=== PATIENT | male | born 1940 | race Caucasian/White ===

== ENCOUNTER → 2018-03-11 12:43 | Outpatient (CLI) | payer MEDICARE, OTHER, SELFPAY ==
[2018-03-11 13:48] LABS: Hematocrit 43.6 % (41-53); Hemoglobin 14.7 g/dL (13.5-17.5); Mean Corpuscular HGB Conc 33.8 % (30-36); Mean Corpuscular Hemoglobin 30.9 PG (26-34); Mean Corpuscular Volume 91.5 fL (80-100); Platelet Count 138 X10^3/uL (150-400); Red Blood Cell Count 4.77 X10^6/uL (4.5-5.9); Red Cell Distribution Width 17.2 % (11.6-14.8); White Blood Cell Count 4.9 X10^3/uL (4.5-11.0)
[2018-03-11 14:39] LABS: BUN Creatinine Ratio 20.6 (6-22); Calcium 9.5 mg/dL (8.4-10.2); Estimated Glomerular Filt Rate 39.3 mL/min (>60); Glucose 94 mg/dL (80-110); HEMOLYSIS < 15 (0-50); Potassium 4.4 mmol/L (3.4-5.1); Sodium 141 mmol/L (137-145)
[2018-03-11 16:30] LABS: Protein (Total) Urine Random 409 mg/dL (0-12); Protein Creatinine Ratio Urine 5.52 GRAM/24H
[2018-03-13 12:58] LABS: Free Kappa Light Chain 41.6 mg/L (3.3-19.4); Free Kappa/ Lambda Ratio 1.19 (0.26-1.65); Free Lambda 34.9 mg/L (5.7-26.3)
[2018-03-13 13:49] LABS: Parathyroid Hormone Int 69 pg/mL (14-64)
[2018-03-13 16:22] LABS: Complement C3 117 mg/dL (82-185)
[2018-03-15 17:19] LABS: ANA Screen NEGATIVE (Negative); DNA Antibody Crithidia IFA NEGATIVE (Negative); Rheumatoid Factor <14 IU/mL; Sjogren Antiboday SS-A <1.0 NEG AI (<1.0 NEGATIVE); Sjogren Antiboday SS-B <1.0 NEG AI (<1.0 NEGATIVE); Sm Antibody <1.0 NEG AI (<1.0 NEGATIVE); Sm/RNP Antibody <1.0 NEG AI (<1.0 NEGATIVE)
== END ==
PROVIDERS: Family Provider Family Medicine; PCP Family Medicine; Visit Provider Student in an Organized Health Care Education/Training Program
DX: L93.2 Other local lupus erythematosus (principal); M31.30 Wegener's granulomatosis without renal involvement; M32.10 Systemic lupus erythematosus, organ or system involvement unspecified; N00.9 Acute nephritic syndrome with unspecified morphologic changes; N05.9 Unspecified nephritic syndrome with unspecified morphologic changes; D89.89 Other specified disorders involving the immune mechanism, not elsewhere classified; D70.9 Neutropenia, unspecified; N25.81 Secondary hyperparathyroidism of renal origin; R80.9 Proteinuria, unspecified
CPT/HCPCS: 36415; 80048; 82570; 83520; 83883; 83970; 84156; 85027; 86038; 86160; 86225; 86255; 86430

== ENCOUNTER → 2018-04-25 09:51 | Outpatient (CLI) | payer MEDICARE, OTHER, SELFPAY ==
[2018-04-25 11:17] LABS: BUN Creatinine Ratio 22.5 (6-22); Blood Urea Nitrogen 45 mg/dL (9-20); Calcium 9.4 mg/dL (8.4-10.2); Carbon Dioxide 25 mmol/L (22-32); Chloride 103 mmol/L (98-107); Estimated Glomerular Filt Rate 32.6 mL/min (>60); Glucose 178 mg/dL (80-110); HEMOLYSIS < 15 (0-50); Potassium 4.4 mmol/L (3.4-5.1); Sodium 140 mmol/L (137-145)
[2018-04-25 16:06] LABS: Creatinine Urine Random 106.3 mg/dL
[2018-04-25 16:13] LABS: Protein (Total) Urine Random 537 mg/dL (0-12); Protein Creatinine Ratio Urine 5.05 GRAM/24H
== END ==
PROVIDERS: Family Provider Family Medicine; PCP Family Medicine; Visit Provider Student in an Organized Health Care Education/Training Program
DX: N50.9 Disorder of male genital organs, unspecified (principal); I50.32 Chronic diastolic (congestive) heart failure; R80.9 Proteinuria, unspecified
CPT/HCPCS: 36415; 80048; 82570; 83880; 84156

== ENCOUNTER 2018-06-03 09:47 | Emergency (ER) | payer MEDICARE, OTHER, SELFPAY ==
[2018-06-03 10:05] VITALS: BP 130/78; PULSE 68; RESP 20; TEMP 36.6; O2SAT 94
--- NOTE | 2018-06-03 10:17 | ED_ITS ---
HPI - Abdominal Pain <ROSS Burroughs - Last Filed: 06/03/18 20:54> General Chief Complaint: Abdominal Pain Stated Complaint: STOMACH PAIN FOR 3 DAYS Time Seen by Provider: 06/03/18 09:55 Source: patient Mode of arrival: ambulatory Limitations: no limitations History of Present Illness HPI narrative: 77-year-old male here for complaint of having lower abdominal pain on and off over the past 3 days. He denies any nausea vomiting. He does state that he has had decreased appetite over the same timeframe. He denies any urinary symptoms. Last bowel movement was earlier today and was unremarkable. No fevers no chills. He denies any trauma to the abdomen. He denies any other concerns or complaints at this time. No stressors or relievers of his discomfort. MD complaint: abdominal pain Related Data Home Medications Medication Instructions Recorded Confirmed tamsulosin [Flomax] 0.4 mg PO QDAY #0 12/10/17 06/03/18 warfarin 5 mg tablet 1 dose PO MOWE 04/03/18 06/03/18 lisinopril 40 mg PO DAILY 06/03/18 06/03/18 rosuvastatin [Crestor] 20 mg PO BEDTIME 06/03/18 06/03/18 warfarin 2.5 mg PO SUTUTHFRSA 06/03/18 06/03/18 Previous Rx's Medication Instructions Recorded furosemide 40 mg PO Q DAY #180 tab 12/10/17 ipratropium-albuterol [Combivent 2 puff INH Q8HP PRN #1 inh 01/09/18 Respimat] carvedilol [Coreg] 12.5 mg PO BID #60 tab 03/03/18 hydrocodone 5 mg-acetaminophen 325 1 tab PO BID PRN #60 tab 04/07/18 mg tablet cephalexin 500 mg PO BID #14 tab 06/03/18 Allergies Allergy/AdvReac Type Severity Reaction Status Date / Time diphenhydramine Allergy Intermediate Verified 04/03/18 09:21 [From BENADRYL] povidone-iodine AdvReac Mild Rash Verified 06/03/18 10:56 [From Betadine] soap [From Betadine] AdvReac Mild Rash Verified 06/03/18 10:56 Review of Systems <ROSS Burroughs - Last Filed: 06/03/18 20:54> Constitutional Denies chills, Denies fever(s), Denies lethargy and Denies weakness Eyes Denies change in vision, Denies eye discharge, Denies irritation and Denies loss of vision ENT Ears, Nose, Mouth, and Throat: Denies change in voice, Denies neck pain and Denies sore throat Cardiovascular Denies chest pain, Denies irregular heart rhythm, Denies lightheadedness, Denies palpitations, Denies dyspnea, Denies dyspnea on exertion and Denies orthopnea Respiratory Denies cough, Denies dyspnea, Denies dyspnea on exertion and Denies wheezing Gastrointestinal Gastrointestinal: Reports abdominal pain Genitourinary Denies hematuria, Denies flank pain, Denies urinary incontinence and Denies urinary urgency Musculoskeletal Denies neck pain Integumentary/Breasts Denies pruritus, Denies erythema, Denies rash and Denies wounds Neurologic Denies loss of vision and Denies weakness Endocrine Denies palpitations Hematologic/Lymphatic Denies easy bruising Allergic/Immunologic Denies wheezing Exam <ROSS Burroughs - Last Filed: 06/03/18 20:54> Initial Vital Signs Initial Vital Signs: Vital Signs Temperature 97.8 F 06/03/18 10:05 Pulse Rate 68 06/03/18 10:05 Respiratory Rate 20 06/03/18 10:05 Blood Pressure 130/78 H 06/03/18 10:05 Pulse Oximetry 94 06/03/18 10:05 Const General: cooperative and well developed Nutritional Appearance: well nourished Orientation: alert, awake, oriented x3 and not confused [facility] Mouth: oral mucosae normal, oropharynx normal and moist mucous membranes Eyes Conjunctivae: conjunctivae normal Sclera: sclerae normal Pupils: PERRL EOM: EOM intact bilaterally Resp Effort & Inspection: normal respiratory effort, able to speak in complete sentences, no respiratory distress and no use of accessory muscles Auscultation: clear to auscultation bilaterally, no rales, no rhonchi and no wheezes Cardio Rate: regular rate Rhythm: regular rhythm Heart Sounds: no click, no gallops, no murmurs and no rubs GI Inspection: non-distended Palpation: soft, no hepatosplenomegaly, No guarding, No pulsatile mass and No tender Auscultation: normal bowel sounds General: No CVA tenderness Skin General: no rashes or lesions noted, No jaundice and No petechiae Neuro General: alert, oriented x3, gait normal and no focal motor deficits Speech: speech normal <Bridger Edmondson DO - Last Filed: 06/04/18 19:28> Initial Vital Signs Initial Vital Signs: Vital Signs Temperature 97.8 F 06/03/18 10:05 Pulse Rate 68 06/03/18 10:05 Respiratory Rate 20 06/03/18 10:05 Blood Pressure 130/78 H 06/03/18 10:05 Pulse Oximetry 94 06/03/18 10:05 Course <ROSS Burroughs - Last Filed: 06/03/18 20:54> Orders Ordered: Discontinued Medications Furosemide (Lasix) 40 mg IV NOW ONE Stop: 06/03/18 11:59 Last Admin: 06/03/18 12:06 Dose: 40 mg Sodium Chloride (Normal Saline 0.9%) 1,000 mls @ 150 mls/hr IV CONT SALMA Last Infusion: 06/03/18 12:07 Dose: 150 mls/hr Admin: 06/03/18 10:56 Dose: 150 mls/hr Vital Signs - 8 hr 06/03/18 13:52 Pulse Rate 64 Respiratory Rate 14 Blood Pressure [Left Arm] 156/65 H Pulse Oximetry 92 <Bridger Edmondson DO - Last Filed: 06/04/18 19:28> Orders Ordered: Discontinued Medications Furosemide (Lasix) 40 mg IV NOW ONE Stop: 06/03/18 11:59 Last Admin: 06/03/18 12:06 Dose: 40 mg Sodium Chloride (Normal Saline 0.9%) 1,000 mls @ 150 mls/hr IV CONT SALMA Last Infusion: 06/03/18 12:07 Dose: 150 mls/hr Admin: 06/03/18 10:56 Dose: 150 mls/hr Vital Signs - 8 hr 06/03/18 13:52 Pulse Rate 64 Respiratory Rate 14 Blood Pressure [Left Arm] 156/65 H Pulse Oximetry 92 MDM - Abdominal Pain <ROSS Burroughs - Last Filed: 06/03/18 20:54> Lab Data Result diagrams: 06/03/18 10:35 06/03/18 10:35 Lab Results 06/03/18 06/03/18 06/03/18 Range/Units 10:35 10:35 10:35 WBC 7.7 (4.5-11.0) X10^3/uL RBC 5.19 (4.5-5.9) X10^6/uL Hgb 16.0 (13.5-17.5) g/dL Hct 48.3 (41-53) % MCV 93.1 (80-100) fL MCH 30.9 (26-34) PG MCHC 33.2 (30-36) % RDW 14.5 (11.6-14.8) % Plt Count 177 (150-400) X10^3/uL Neut % (Auto) 75.7 H (50-75) % Lymph % (Auto) 10.4 L (25-40) % Isabella % (Auto) 12.4 (3-14) % Eos % (Auto) 0.9 L (2-4) % Baso % (Auto) 0.6 (0-2) % Neut # (Auto) 5800 (1958-2280) /uL PT 42.0 H (10.1-12.7) SECONDS INR 3.8 H (0.9-1.3) Sodium 140 (137-145) mmol/L Potassium 4.4 (3.4-5.1) mmol/L Chloride 99 (98-107) mmol/L Carbon Dioxide 32 (22-32) mmol/L BUN 72 H (9-20) mg/dL Creatinine 3.10 H (0.66-1.25) mg/dL Estimated GFR 19.6 L (>60) mL/min BUN/Creatinine Ratio 23.2 H (6-22) Glucose 117 H (80-110) mg/dL Calcium 10.4 H (8.4-10.2) mg/dL Total Bilirubin 1.0 (0.2-1.3) mg/dL AST 27 (17-59) IU/L ALT 21 (21-72) IU/L Alkaline Phosphatase 81 (38-126) U/L Total Protein 8.4 H (6.3-8.2) g/dL Albumin 4.3 (3.5-5.0) g/dL Globulin 4.1 (1.7-4.1) g/dL Albumin/Globulin Ratio 1.0 (1.0-2.8) Lipase 97 (23-300) U/L Urine RBC (0-5/HPF) Urine WBC (0-5/HPF) Ur Squamous Epith Cells Amorphous Sediment Urine Bacteria (None) Urine Mucus (Negative) Urine Yeast (None) Ur Culture Indicated? Micro UA Comment 06/03/18 Range/Units 12:30 WBC (4.5-11.0) X10^3/uL RBC (4.5-5.9) X10^6/uL Hgb (13.5-17.5) g/dL Hct (41-53) % MCV (80-100) fL MCH (26-34) PG MCHC (30-36) % RDW (11.6-14.8) % Plt Count (150-400) X10^3/uL Neut % (Auto) (50-75) % Lymph % (Auto) (25-40) % Isabella % (Auto) (3-14) % Eos % (Auto) (2-4) % Baso % (Auto) (0-2) % Neut # (Auto) (5497-7729) /uL PT (10.1-12.7) SECONDS INR (0.9-1.3) Sodium (137-145) mmol/L Potassium (3.4-5.1) mmol/L Chloride (98-107) mmol/L Carbon Dioxide (22-32) mmol/L BUN (9-20) mg/dL Creatinine (0.66-1.25) mg/dL Estimated GFR (>60) mL/min BUN/Creatinine Ratio (6-22) Glucose (80-110) mg/dL Calcium (8.4-10.2) mg/dL Total Bilirubin (0.2-1.3) mg/dL AST (17-59) IU/L ALT (21-72) IU/L Alkaline Phosphatase (38-126) U/L Total Protein (6.3-8.2) g/dL Albumin (3.5-5.0) g/dL Globulin (1.7-4.1) g/dL Albumin/Globulin Ratio (1.0-2.8) Lipase (23-300) U/L Urine RBC 1-5/hpf (0-5/HPF) Urine WBC 30-100/hpf H (0-5/HPF) Ur Squamous Epith Cells 0-1 /hpf Amorphous Sediment 1+ Urine Bacteria Few (2-10) H (None) Urine Mucus 1+ H (Negative) Urine Yeast 5-10/hpf H (None) Ur Culture Indicated? Specimen cultured Micro UA Comment Not Reportable Point of care testing: Urine Dip Bedside Urine Glucose Negative Bedside Urine Bilirubin - Negative Bedside Urine Ketone - Negative Urine Specific [place] 1.020 Bedside Urine Occult Blood ++ Bedside Urine pH 6.0 Bedside Urine Protein ++ 100 Bedside Urine Urobilinogen - Negative Bedside Urine Nitrite - Negative Bedside Urine Leukocytes +/- [address] scan - abdomen: Radiologist's impression: PROCEDURE: CT KIDNEY URETER BLADDER (KUB) INDICATIONS: Left lower quadrant pain TECHNIQUE: Noncontrast 5 mm thick sections acquired from the diaphragms to the symphysis. 5 mm thick coronal and sagittal reformats were then performed. For radiation dose reduction, the following was used: automated exposure control, adjustment of mA and/or kV according to patient size. COMPARISON: [facility], , RENAL COMPLETE, 08/22/2017, 9:05. FINDINGS: Image quality: Excellent. Lung bases: Dependent atelectasis/scarring in posterior aspect of bilateral lung bases are seen. Heart size is enlarged. Atherosclerotic calcifications throughout coronary arteries are noted. Urinary system: Moderately atrophic appearing left kidney is seen, progressed since 2017 study. No obstructing renal stone or hydronephrosis is seen. Nonspecific bilateral perinephric fat stranding is noted. Vascular calcifications versus nonobstructing calculi are seen scattered in bilateral renal parenchyma and measures up to 3 mm in size in midpole of left kidney. No perinephric fluid collection. Multiple hypodense areas are seen in left renal cortex, and are consistent with simple renal cortical cysts. There is diffuse urinary bladder wall thickening, no gross discrete bladder wall mass is noted. Enlarged prostate gland with mass effect on floor of urinary bladder is also seen. Coarse calcifications in the prostate gland are also seen. Other solid organs: Liver is normal in size. Gallbladder contains at least numerous calcified stones in its dependent portion. No CT evidence of acute cholecystitis. No biliary ductal dilatation. Pancreas is normal in contours. Spleen is normal in size. No adrenal nodules. Peritoneum and bowel: Unenhanced bowel loops demonstrate normal wall thickness and caliber. No free fluid or air. There is evidence of prior appendectomy.: Diverticulosis is seen, no significant evidence of acute diverticulitis. Nodes and vessels: No retroperitoneal or mesenteric adenopathy by size criteria. Extensive dense atherosclerotic calcifications throughout the abdominal aorta and its major branches are again seen. Numerous surgical clips are seen adjacent to abdominal aorta. femoral-femoral bypass graft is seen. Abdominal wall: No ventral hernias. Pelvis: No free pelvic fluid. No inguinal hernias or adenopathy. Bones: No suspicious bony lesions. No vertebral body compression fractures. IMPRESSION: 1. Moderate atrophy of left kidney, significantly progressed since 2017 study. No obstructing renal stone or hydronephrosis. Tiny nonobstructing stones versus vascular calcifications are noted in bilateral kidneys. Suggestion of multiple left renal cysts. Nonspecific bilateral perinephric fat stranding, infectious process cannot be excluded. 2. Diffuse urinary bladder wall thickening, no discrete bladder wall mass is seen. Mildly enlarged prostate gland with mass effect on floor of urinary bladder. 3. Cholelithiasis, no CT evidence of acute cholecystitis. 4. No bowel obstruction. No peritoneal free fluid or free air. Extensive colon diverticulosis with no CT evidence of acute diverticulitis. Dictated by: Kevon Guaman M.D. on 06/03/2018 at 11:17 Approved by: Kevon Guaman M.D. on 06/03/2018 at 11:29 MDM Narrative Medical decision making narrative: CBC was obtained was unremarkable. INR today was elevated at 3.8. Chem panel shows decreased GFR of 19.6 and elevated creatinine of 3.1. This is higher than when he has normally been. Lipase was obtained was unremarkable. CT of the abdomen and shows thickening of the wall of the bladder however was otherwise unremarkable. Urinalysis indicates urinary tract infection. Discussed case with Dr. Guerra to discussed care with patient who is on-call for primary care provider Dr. Vickers who will follow up with patient in the next couple of days. He is placed on Keflex to treat for urinary tract infection. Further evaluation is needed for his decrease in GFR and also for repeat INR here in the next couple days after antibiotics. For any worsening symptoms return to the emergency room. <Bridger Edmondson, - Last Filed: 06/04/18 19:28> Lab Data Lab Results 06/03/18 06/03/18 06/03/18 Range/Units 10:35 10:35 10:35 WBC 7.7 (4.5-11.0) X10^3/uL RBC 5.19 (4.5-5.9) X10^6/uL Hgb 16.0 (13.5-17.5) g/dL Hct 48.3 (41-53) % MCV 93.1 (80-100) fL MCH 30.9 (26-34) PG MCHC 33.2 (30-36) % RDW 14.5 (11.6-14.8) % Plt Count 177 (150-400) X10^3/uL Neut % (Auto) 75.7 H (50-75) % Lymph % (Auto) 10.4 L (25-40) % Isabella % (Auto) 12.4 (3-14) % Eos % (Auto) 0.9 L (2-4) % Baso % (Auto) 0.6 (0-2) % Neut # (Auto) 5800 (2164-9845) /uL PT 42.0 H (10.1-12.7) SECONDS INR 3.8 H (0.9-1.3) Sodium 140 (137-145) mmol/L Potassium 4.4 (3.4-5.1) mmol/L Chloride 99 (98-107) mmol/L Carbon Dioxide 32 (22-32) mmol/L BUN 72 H (9-20) mg/dL Creatinine 3.10 H (0.66-1.25) mg/dL Estimated GFR 19.6 L (>60) mL/min BUN/Creatinine Ratio 23.2 H (6-22) Glucose 117 H (80-110) mg/dL Calcium 10.4 H (8.4-10.2) mg/dL Total Bilirubin 1.0 (0.2-1.3) mg/dL AST 27 (17-59) IU/L ALT 21 (21-72) IU/L Alkaline Phosphatase 81 (38-126) U/L Total Protein 8.4 H (6.3-8.2) g/dL Albumin 4.3 (3.5-5.0) g/dL Globulin 4.1 (1.7-4.1) g/dL Albumin/Globulin Ratio 1.0 (1.0-2.8) Lipase 97 (23-300) U/L Urine RBC (0-5/HPF) Urine WBC (0-5/HPF) Ur Squamous Epith Cells Amorphous Sediment Urine Bacteria (None) Urine Mucus (Negative) Urine Yeast (None) Ur Culture Indicated? Micro UA Comment 06/03/18 Range/Units 12:30 WBC (4.5-11.0) X10^3/uL RBC (4.5-5.9) X10^6/uL Hgb (13.5-17.5) g/dL Hct (41-53) % MCV (80-100) fL MCH (26-34) PG MCHC (30-36) % RDW (11.6-14.8) % Plt Count (150-400) X10^3/uL Neut % (Auto) (50-75) % Lymph % (Auto) (25-40) % Isabella % (Auto) (3-14) % Eos % (Auto) (2-4) % Baso % (Auto) (0-2) % Neut # (Auto) (6567-4270) /uL PT (10.1-12.7) SECONDS INR (0.9-1.3) Sodium (137-145) mmol/L Potassium (3.4-5.1) mmol/L Chloride (98-107) mmol/L Carbon Dioxide (22-32) mmol/L BUN (9-20) mg/dL Creatinine (0.66-1.25) mg/dL Estimated GFR (>60) mL/min BUN/Creatinine Ratio (6-22) Glucose (80-110) mg/dL Calcium (8.4-10.2) mg/dL Total Bilirubin (0.2-1.3) mg/dL AST (17-59) IU/L ALT (21-72) IU/L Alkaline Phosphatase (38-126) U/L Total Protein (6.3-8.2) g/dL Albumin (3.5-5.0) g/dL Globulin (1.7-4.1) g/dL Albumin/Globulin Ratio (1.0-2.8) Lipase (23-300) U/L Urine RBC 1-5/hpf (0-5/HPF) Urine WBC 30-100/hpf H (0-5/HPF) Ur Squamous Epith Cells 0-1 /hpf Amorphous Sediment 1+ Urine Bacteria Few (2-10) H (None) Urine Mucus 1+ H (Negative) Urine Yeast 5-10/hpf H (None) Ur Culture Indicated? Specimen cultured Micro UA Comment Not Reportable Point of care testing: Urine Dip Bedside Urine Glucose Negative Bedside Urine Bilirubin - Negative Bedside Urine Ketone - Negative Urine Specific [place] 1.020 Bedside Urine Occult Blood ++ Bedside Urine pH 6.0 Bedside Urine Protein ++ 100 Bedside Urine Urobilinogen - Negative Bedside Urine Nitrite - Negative Bedside Urine Leukocytes +/- 15 Esterase Discharge Plan Departure Patient Disposition: Home, Self-Care Clinical Impression: Urinary tract infection Discharge Date/Time: 06/03/18 15:12 Interventions: ED Discharge Assessment Last Done: 06/03/18 15:10 Instructions: Urinary Tract Infection Activity Restrictions/Additional Instructions: Laboratory results and imaging today indicate that you have urinary tract infection. You have been placed on an antibiotic called Keflex use as directed. Your kidney function today was less than normal and also your INR was elevated at 3.8. Follow up with primary care office in the next couple of days. Call the office at number provided to schedule follow-up appointment. For any worsening symptoms return to the emergency room. Prescriptions: New cephalexin 250 mg tablet 500 mg PO BID Qty: 14 RF: 0 No Action furosemide 40 MG tablet 40 mg PO Q DAY Qty: 180 RF: 3 tamsulosin [Flomax] 0.4 MG capsule,extended release 24hr 0.4 mg PO QDAY Qty: 0 RF: 0 ipratropium-albuterol [Combivent Respimat] 4 GM mist 2 puff INH Q8HP PRNQty: 1 RF: 0 carvedilol [Coreg] 12.5 mg tablet 12.5 mg PO BID Qty: 60 RF: 0 hydrocodone-acetaminophen 5-325 mg tablet 1 tab PO BID PRN (Reason: pain) Qty: 60 RF: 0 warfarin 5 mg tablet 1 dose PO MOWE RF: 0 lisinopril 40 mg tablet 40 mg PO DAILY RF: 0 warfarin 5 mg Tablet 2.5 mg PO SUTUTHFRSA RF: 0 rosuvastatin [Crestor] 40 mg tablet 20 mg PO BEDTIME RF: 0 Referrals: Dereck Vickers MD [Primary Care Provider] - <Bridger Edmondson DO - Last Filed: 06/04/18 19:28> Cosign ED Attending Yajaira Attestation: I was available for consultation during this patient's emergency department encounter
[2018-06-03 10:50] LABS: Add Manual Diff / Slide Review NO; Basophils Percent Auto 0.6 % (0-2); Eosinophils Percent Auto 0.9 % (2-4); Hematocrit 48.3 % (41-53); Lymphocytes Percent Auto 10.4 % (25-40); Mean Corpuscular HGB Conc 33.2 % (30-36); Mean Corpuscular Hemoglobin 30.9 PG (26-34); Mean Corpuscular Volume 93.1 fL (80-100); Monocytes Percent Auto 12.4 % (3-14); Neutrophils Absolute Auto 5800 /uL (3000-5900); Neutrophils Percent Auto 75.7 % (50-75); Platelet Count 177 X10^3/uL (150-400); Red Blood Cell Count 5.19 X10^6/uL (4.5-5.9); Red Cell Distribution Width 14.5 % (11.6-14.8); White Blood Cell Count 7.7 X10^3/uL (4.5-11.0)
[2018-06-03 10:56] LABS: INR 3.8 (0.9-1.3)
[2018-06-03] MEDS: SODIUM CHLORIDE 0.9% 1,000 ML 150 ML IV (10:56)
--- NOTE | 2018-06-03 10:57 | DI.CT.S_ITS ---
PROCEDURE: CT KIDNEY URETER BLADDER (KUB) INDICATIONS: Left lower quadrant pain TECHNIQUE: Noncontrast 5 mm thick sections acquired from the diaphragms to the symphysis. 5 mm thick coronal and sagittal reformats were then performed. For radiation dose reduction, the following was used: automated exposure control, adjustment of mA and/or kV according to patient size. COMPARISON: [facility], , RENAL COMPLETE, 08/22/2017, 9:05. FINDINGS: Image quality: Excellent. Lung bases: Dependent atelectasis/scarring in posterior aspect of bilateral lung bases are seen. Heart size is enlarged. Atherosclerotic calcifications throughout coronary arteries are noted. Urinary system: Moderately atrophic appearing left kidney is seen, progressed since 2017 study. No obstructing renal stone or hydronephrosis is seen. Nonspecific bilateral perinephric fat stranding is noted. Vascular calcifications versus nonobstructing calculi are seen scattered in bilateral renal parenchyma and measures up to 3 mm in size in midpole of left kidney. No perinephric fluid collection. Multiple hypodense areas are seen in left renal cortex, and are consistent with simple renal cortical cysts. There is diffuse urinary bladder wall thickening, no gross discrete bladder wall mass is noted. Enlarged prostate gland with mass effect on floor of urinary bladder is also seen. Coarse calcifications in the prostate gland are also seen. Other solid organs: Liver is normal in size. Gallbladder contains at least numerous calcified stones in its dependent portion. No CT evidence of acute cholecystitis. No biliary ductal dilatation. Pancreas is normal in contours. Spleen is normal in size. No adrenal nodules. Peritoneum and bowel: Unenhanced bowel loops demonstrate normal wall thickness and caliber. No free fluid or air. There is evidence of prior appendectomy.: Diverticulosis is seen, no significant evidence of acute diverticulitis. Nodes and vessels: No retroperitoneal or mesenteric adenopathy by size criteria. Extensive dense atherosclerotic calcifications throughout the abdominal aorta and its major branches are again seen. Numerous surgical clips are seen adjacent to abdominal aorta. femoral-femoral bypass graft is seen. Abdominal wall: No ventral hernias. Pelvis: No free pelvic fluid. No inguinal hernias or adenopathy. Bones: No suspicious bony lesions. No vertebral body compression fractures. IMPRESSION: 1. Moderate atrophy of left kidney, significantly progressed since 2017 study. No obstructing renal stone or hydronephrosis. Tiny nonobstructing stones versus vascular calcifications are noted in bilateral kidneys. Suggestion of multiple left renal cysts. Nonspecific bilateral perinephric fat stranding, infectious process cannot be excluded. 2. Diffuse urinary bladder wall thickening, no discrete bladder wall mass is seen. Mildly enlarged prostate gland with mass effect on floor of urinary bladder. 3. Cholelithiasis, no CT evidence of acute cholecystitis. 4. No bowel obstruction. No peritoneal free fluid or free air. Extensive colon diverticulosis with no CT evidence of acute diverticulitis. Dictated by: Kevon Guaman M.D. on 06/03/2018 at 11:17 Approved by: Kevon Guaman M.D. on 06/03/2018 at 11:29
--- NOTE | 2018-06-03 10:59 | PC.NURSE ---
states not able to void yet, voided prior to admit to ed
[2018-06-03 11:01] LABS: Alanine Aminotransferase 21 IU/L (21-72); Albumin 4.3 g/dL (3.5-5.0); Alkaline Phosphatase 81 U/L (38-126); Aspartate Aminotransferase 27 IU/L (17-59); BUN Creatinine Ratio 23.2 (6-22); Blood Urea Nitrogen 72 mg/dL (9-20); Calcium 10.4 mg/dL (8.4-10.2); Carbon Dioxide 32 mmol/L (22-32); Chloride 99 mmol/L (98-107); Estimated Glomerular Filt Rate 19.6 mL/min (>60); Globulin 4.1 g/dL (1.7-4.1); Glucose 117 mg/dL (80-110); HEMOLYSIS < 15 (0-50); Lipase 97 U/L (23-300); Potassium 4.4 mmol/L (3.4-5.1); Sodium 140 mmol/L (137-145); Total Protein 8.4 g/dL (6.3-8.2)
[2018-06-03] MEDS: FUROSEMIDE 40 MG/4 ML VIAL IV (12:06)
[2018-06-03 12:17] VITALS: BP 147/83; PULSE 66; RESP 18; O2SAT 94
[2018-06-03 12:54] LABS: RBC Urine 1-5/HPF (0-5/HPF)
[2018-06-03 12:55] LABS: Amorphous Sediment Urine 1+; Bacteria Urine Few (2-10); Culture Indicated Urine Specimen Cultured; Mucus Urine 1+ (Negative); Squamous Epithelial Cell Urine 0-1 /HPF; WBC Urine 30-100/HPF (0-5/HPF)
[2018-06-03 13:52] VITALS: BP 156/65; PULSE 64; RESP 14; O2SAT 92
== END 2018-06-03 15:12 | disposition home or self-care (01) ==
PROVIDERS: Emergency Provider Nurse Practitioner Family; Family Provider Family Medicine; PCP Family Medicine
DX: N39.0 Urinary tract infection, site not specified (principal)
CPT/HCPCS: 36591; 74176; 80053; 81003; 81015; 83690; 85025; 85610; 87077; 87086; 96361; 96374; 99283; 99284; J1940

== ENCOUNTER → 2018-06-06 14:41 | Outpatient (CLI) | payer MEDICARE, OTHER, SELFPAY ==
[2018-06-06 15:09] LABS: Prothrombin Time 62.5 SECONDS (10.1-12.7)
[2018-06-06 15:21] LABS: INR 5.5 (0.9-1.3)
[2018-06-06 15:23] LABS: BUN Creatinine Ratio 23.2 (6-22); Blood Urea Nitrogen 79 mg/dL (9-20); Calcium 9.9 mg/dL (8.4-10.2); Carbon Dioxide 30 mmol/L (22-32); Chloride 97 mmol/L (98-107); Estimated Glomerular Filt Rate 17.7 mL/min (>60); Glucose 102 mg/dL (80-110); HEMOLYSIS 17 (0-50); Potassium 4.6 mmol/L (3.4-5.1); Sodium 139 mmol/L (137-145)
== END ==
PROVIDERS: Family Provider Family Medicine; PCP Family Medicine; Visit Provider Internal Medicine
DX: N17.9 Acute kidney failure, unspecified (principal)
CPT/HCPCS: 36415; 80048; 85610

== ENCOUNTER → 2018-06-10 10:37 | Outpatient (CLI) | payer MEDICARE, OTHER, SELFPAY ==
--- NOTE | 2018-06-10 10:39 | DI.US.S_ITS ---
PROCEDURE: US RENAL COMPLETE INDICATIONS: post void residual TECHNIQUE: Real-time scanning was performed of the kidneys and bladder, with image documentation. COMPARISON: [facility], CT, CT KIDNEY URETER BLADDER (KUB), 06/03/2018, 11:03. FINDINGS: Kidneys: Kidneys are within normal limits in length. Right kidney measures 13.4 cm long; left kidney measures 13 cm long. Right renal cortical thickness is 1.4 cm; left renal cortical thickness is 1. 0 cm. Renal cortical echotexture is normal. Mild pyelectasis of the left renal collecting system. There are 3 small nonobstructing right renal calcifications largest measuring 8 mm and a single nonobstructing left renal calcification measuring 5 mm. Left renal cysts present measuring 1.4 cm. Bladder: Pre-void bladder volume is 325 mL. Post-void residual is 129 mL. Pre-void images demonstrate no intraluminal masses or stones. On pre-void images, right ureteral jets are noted with color Doppler interrogation. (Of note, ureteral jets may not be detectable in up to 25% of cases due to insufficient differences in specific gravity between ureteral and bladder urine). Miscellaneous: No free pelvic fluid. IMPRESSION: 1. Small bilateral non-obstructing calcifications. 2. Left renal cysts present largest measuring 1.4 cm. 3. Roughly 120 cc urinary bladder postvoid residual. 4. Left renal cortical thinning redemonstrated. Dictated by: Buzz Gonzáles [facility] Interpreted: Verito Herrera MD on 06/10/2018 at 12:02 Approved by: Verito Herrera MD, PhD on 06/10/2018 at 13:49
== END ==
PROVIDERS: Family Provider Student in an Organized Health Care Education/Training Program; PCP Family Medicine; Visit Provider Internal Medicine
DX: N17.9 Acute kidney failure, unspecified (principal); N28.89 Other specified disorders of kidney and ureter; N28.1 Cyst of kidney, acquired
CPT/HCPCS: 76770

== ENCOUNTER → 2018-06-11 15:09 | Outpatient (CLI) | payer MEDICARE, OTHER, SELFPAY ==
[2018-06-11 16:01] LABS: BUN Creatinine Ratio 21.3 (6-22); Blood Urea Nitrogen 66 mg/dL (9-20); Calcium 9.3 mg/dL (8.4-10.2); Carbon Dioxide 24 mmol/L (22-32); Chloride 101 mmol/L (98-107); Estimated Glomerular Filt Rate 19.6 mL/min (>60); Glucose 95 mg/dL (80-110); HEMOLYSIS 16 (0-50); Potassium 4.5 mmol/L (3.4-5.1); Sodium 139 mmol/L (137-145)
== END ==
PROVIDERS: Family Provider Student in an Organized Health Care Education/Training Program; PCP Family Medicine; Visit Provider Internal Medicine
DX: I50.20 Unspecified systolic (congestive) heart failure (principal); N17.9 Acute kidney failure, unspecified
CPT/HCPCS: 36415; 80048

== ENCOUNTER → 2018-06-16 14:08 | Outpatient (CLI) | payer MEDICARE, OTHER, SELFPAY ==
[2018-06-16 15:51] LABS: INR 2.4 (0.9-1.3); Prothrombin Time 26.6 SECONDS (10.1-12.7)
[2018-06-16 16:04] LABS: BUN Creatinine Ratio 18.1 (6-22); Blood Urea Nitrogen 56 mg/dL (9-20); Calcium 9.8 mg/dL (8.4-10.2); Carbon Dioxide 29 mmol/L (22-32); Chloride 102 mmol/L (98-107); Estimated Glomerular Filt Rate 19.6 mL/min (>60); Glucose 89 mg/dL (80-110); HEMOLYSIS < 15 (0-50); Potassium 4.5 mmol/L (3.4-5.1); Sodium 142 mmol/L (137-145)
== END ==
PROVIDERS: Family Provider Student in an Organized Health Care Education/Training Program; PCP Family Medicine; Visit Provider Internal Medicine
DX: N18.3 Chronic kidney disease, stage 3 (moderate) (principal); Z79.01 Long term (current) use of anticoagulants
CPT/HCPCS: 36415; 80048; 85610

== ENCOUNTER → 2018-06-26 12:26 | Outpatient (CLI) | payer MEDICARE, OTHER, SELFPAY ==
[2018-06-26 13:10] LABS: Blood Urea Nitrogen 45 mg/dL (9-20); Calcium 9.6 mg/dL (8.4-10.2); Carbon Dioxide 34 mmol/L (22-32); Chloride 101 mmol/L (98-107); Estimated Glomerular Filt Rate 36.7 mL/min (>60); Glucose 94 mg/dL (80-110); HEMOLYSIS < 15 (0-50); Potassium 3.5 mmol/L (3.4-5.1); Sodium 145 mmol/L (137-145)
== END ==
PROVIDERS: Family Provider Student in an Organized Health Care Education/Training Program; PCP Family Medicine; Visit Provider Student in an Organized Health Care Education/Training Program
DX: N05.9 Unspecified nephritic syndrome with unspecified morphologic changes (principal); I50.32 Chronic diastolic (congestive) heart failure
CPT/HCPCS: 36415; 80048; 83880

== ENCOUNTER → 2018-07-31 12:32 | Outpatient (CLI) | payer MEDICARE, OTHER, SELFPAY ==
[2018-07-31 13:09] LABS: Hemoglobin 14.5 g/dL (13.5-17.5)
[2018-07-31 13:35] LABS: BUN Creatinine Ratio 16.4 (6-22); Blood Urea Nitrogen 23 mg/dL (9-20); Calcium 9.3 mg/dL (8.4-10.2); Carbon Dioxide 32 mmol/L (22-32); Chloride 101 mmol/L (98-107); Glucose 137 mg/dL (80-110); HEMOLYSIS < 15 (0-50); Potassium 3.6 mmol/L (3.4-5.1); Sodium 144 mmol/L (137-145)
[2018-08-02 14:06] LABS: Parathyroid Hormone Int 45 pg/mL (14-64)
== END ==
PROVIDERS: Family Provider Student in an Organized Health Care Education/Training Program; PCP Family Medicine; Visit Provider Student in an Organized Health Care Education/Training Program
DX: N05.9 Unspecified nephritic syndrome with unspecified morphologic changes (principal); I50.32 Chronic diastolic (congestive) heart failure; D64.9 Anemia, unspecified; N25.81 Secondary hyperparathyroidism of renal origin
CPT/HCPCS: 36415; 80048; 83880; 83970; 85014; 85018

== ENCOUNTER → 2018-09-09 12:45 | Outpatient (CLI) | payer MEDICARE, OTHER, SELFPAY ==
[2018-09-09 15:02] LABS: BUN Creatinine Ratio 18.2 (6-22); Blood Urea Nitrogen 31 mg/dL (9-20); Calcium 9.3 mg/dL (8.4-10.2); Carbon Dioxide 27 mmol/L (22-32); Chloride 100 mmol/L (98-107); Estimated Glomerular Filt Rate 39.2 mL/min (>60); Glucose 101 mg/dL (80-110); HEMOLYSIS < 15 (0-50); Potassium 3.9 mmol/L (3.4-5.1); Sodium 141 mmol/L (137-145)
[2018-09-09 16:08] LABS: Creatinine Urine Random 59.6 mg/dL; Protein (Total) Urine Random 156 mg/dL (0-12); Protein Creatinine Ratio Urine 2.61 GRAM/24H
== END ==
PROVIDERS: PCP Family Medicine; Visit Provider Student in an Organized Health Care Education/Training Program
DX: N05.9 Unspecified nephritic syndrome with unspecified morphologic changes (principal); R80.9 Proteinuria, unspecified
CPT/HCPCS: 36415; 80048; 82570; 84156

== ENCOUNTER → 2018-12-27 12:26 | Outpatient (CLI) | payer MEDICARE, OTHER, SELFPAY ==
[2018-12-27 13:06] LABS: Hematocrit 45.9 % (41-53)
[2018-12-27 13:34] LABS: BUN Creatinine Ratio 21.6 (6-22); Blood Urea Nitrogen 41 mg/dL (9-20); Calcium 9.5 mg/dL (8.4-10.2); Carbon Dioxide 28 mmol/L (22-32); Chloride 99 mmol/L (98-107); Estimated Glomerular Filt Rate 34.5 mL/min (>60); Glucose 171 mg/dL (80-110); HEMOLYSIS < 15 (0-50); Potassium 4.3 mmol/L (3.4-5.1); Sodium 138 mmol/L (137-145)
[2018-12-27 14:42] LABS: Protein (Total) Urine Random 173 mg/dL (0-12); Protein Creatinine Ratio Urine 2.43 GRAM/24H
== END ==
PROVIDERS: Family Provider Student in an Organized Health Care Education/Training Program; PCP Family Medicine; Visit Provider Student in an Organized Health Care Education/Training Program
DX: N05.9 Unspecified nephritic syndrome with unspecified morphologic changes (principal); R80.9 Proteinuria, unspecified; D64.9 Anemia, unspecified
CPT/HCPCS: 36415; 80048; 82570; 84156; 85014; 85018

== ENCOUNTER → 2019-02-05 13:07 | Outpatient (CLI) | payer MEDICARE, OTHER, SELFPAY ==
[2019-02-05 14:24] LABS: BUN Creatinine Ratio 22.2 (6-22); Blood Urea Nitrogen 40 mg/dL (9-20); Calcium 9.1 mg/dL (8.4-10.2); Carbon Dioxide 24 mmol/L (22-32); Chloride 104 mmol/L (98-107); Estimated Glomerular Filt Rate 36.7 mL/min (>60); Glucose 114 mg/dL (80-110); HEMOLYSIS < 15 (0-50); Potassium 4.1 mmol/L (3.4-5.1); Sodium 140 mmol/L (137-145)
[2019-02-05 16:14] LABS: Creatinine Urine Random 73.2 mg/dL; Protein (Total) Urine Random 246 mg/dL (0-12); Protein Creatinine Ratio Urine 3.36 GRAM/24H
== END ==
PROVIDERS: PCP Family Medicine; Visit Provider Student in an Organized Health Care Education/Training Program
DX: R80.9 Proteinuria, unspecified (principal); N05.9 Unspecified nephritic syndrome with unspecified morphologic changes
CPT/HCPCS: 36415; 80048; 82570; 84156

== ENCOUNTER → 2019-03-19 13:22 | Outpatient (CLI) | payer MEDICARE, OTHER, SELFPAY ==
[2019-03-19 14:03] LABS: Hematocrit 46.2 % (41-53); Hemoglobin 15.5 g/dL (13.5-17.5); Mean Corpuscular HGB Conc 33.4 % (30-36); Mean Corpuscular Volume 92.8 fL (80-100); Platelet Count 143 X10^3/uL (150-400); Red Blood Cell Count 4.98 X10^6/uL (4.5-5.9); Red Cell Distribution Width 16.1 % (11.6-14.8); White Blood Cell Count 6.9 X10^3/uL (4.5-11.0)
[2019-03-19 14:27] LABS: B Type Natriuretic Peptide 1420 (<100)
[2019-03-19 15:25] LABS: HEMOLYSIS < 15 (0-50); Iron 95 ug/dL (49-181)
[2019-03-19 15:28] LABS: Creatinine Urine Random 28.4 mg/dL
[2019-03-19 15:30] LABS: Blood Urea Nitrogen 42 mg/dL (9-20); Calcium 9.4 mg/dL (8.4-10.2); Carbon Dioxide 28 mmol/L (22-32); Chloride 101 mmol/L (98-107); Estimated Glomerular Filt Rate 30.7 mL/min (>60); Glucose 97 mg/dL (80-110); HEMOLYSIS < 15 (0-50); Phosphorous 3.9 mg/dL (2.3-3.7); Sodium 139 mmol/L (137-145)
[2019-03-19 15:34] LABS: Percent Iron Saturation 26 % (20-50); Total Iron Binding Capacity 367 ug/dL (261-462); Transferrin 266 mg/dL (206-381)
[2019-03-21 16:45] LABS: Parathyroid Hormone Int 81 pg/mL (14-64)
== END ==
PROVIDERS: PCP Family Medicine; Visit Provider Student in an Organized Health Care Education/Training Program
DX: N18.3 Chronic kidney disease, stage 3 (moderate) (principal); R80.9 Proteinuria, unspecified; E21.1 Secondary hyperparathyroidism, not elsewhere classified; I50.32 Chronic diastolic (congestive) heart failure
CPT/HCPCS: 36415; 80069; 82570; 83540; 83550; 83880; 83970; 84156; 84166; 85027

== ENCOUNTER → 2019-05-15 13:57 | Outpatient (CLI) | payer MEDICARE, OTHER, SELFPAY ==
[2019-05-15 15:35] LABS: BUN Creatinine Ratio 25.7 (6-22); Blood Urea Nitrogen 54 mg/dL (9-20); Calcium 9.4 mg/dL (8.4-10.2); Carbon Dioxide 24 mmol/L (22-32); Chloride 105 mmol/L (98-107); Estimated Glomerular Filt Rate 30.7 mL/min (>60); Glucose 72 mg/dL (80-110); HEMOLYSIS < 15 (0-50); Potassium 4.2 mmol/L (3.4-5.1); Sodium 142 mmol/L (137-145)
[2019-05-15 16:32] LABS: Protein (Total) Urine Random 76 mg/dL (0-12); Protein Creatinine Ratio Urine 3.16 GRAM/24H
[2019-05-19 14:18] LABS: Parathyroid Hormone Int 98 pg/mL (14-64)
== END ==
PROVIDERS: PCP Family Medicine; Visit Provider Student in an Organized Health Care Education/Training Program
DX: N05.9 Unspecified nephritic syndrome with unspecified morphologic changes (principal); N25.81 Secondary hyperparathyroidism of renal origin; R80.9 Proteinuria, unspecified
CPT/HCPCS: 36415; 80048; 82570; 83970; 84156

== ENCOUNTER → 2019-09-16 13:58 | Outpatient (CLI) | payer MEDICARE, OTHER, SELFPAY ==
[2019-09-16 14:47] LABS: Hematocrit 44.6 % (41-53)
[2019-09-16 14:54] LABS: BUN Creatinine Ratio 20.7 (6-22); Blood Urea Nitrogen 58 mg/dL (9-20); Calcium 10.3 mg/dL (8.4-10.2); Carbon Dioxide 26 mmol/L (22-32); Chloride 104 mmol/L (98-107); Glucose 118 mg/dL (80-110); HEMOLYSIS < 15 (0-50); Potassium 4.4 mmol/L (3.4-5.1); Sodium 141 mmol/L (137-145)
[2019-09-19 14:11] LABS: Parathyroid Hormone Int 37 pg/mL (14-64)
== END ==
PROVIDERS: PCP Family Medicine; Visit Provider Student in an Organized Health Care Education/Training Program
DX: N05.9 Unspecified nephritic syndrome with unspecified morphologic changes (principal); D64.9 Anemia, unspecified; N25.81 Secondary hyperparathyroidism of renal origin; R80.9 Proteinuria, unspecified
CPT/HCPCS: 36415; 80048; 83970; 85014; 85018

== ENCOUNTER → 2019-09-18 12:59 | Outpatient (CLI) | payer MEDICARE, OTHER, SELFPAY ==
[2019-09-18 15:32] LABS: Creatinine Urine Random 67.5 mg/dL; Protein (Total) Urine Random 106 mg/dL (0-12); Protein Creatinine Ratio Urine 1.57 GRAM/24H
== END ==
PROVIDERS: Family Provider Family Medicine; PCP Family Medicine; Visit Provider Student in an Organized Health Care Education/Training Program
DX: R80.9 Proteinuria, unspecified (principal); D64.9 Anemia, unspecified; N25.81 Secondary hyperparathyroidism of renal origin; N05.9 Unspecified nephritic syndrome with unspecified morphologic changes
CPT/HCPCS: 82570; 84156

== ENCOUNTER → 2019-09-29 13:47 | Outpatient (CLI) | payer MEDICARE, OTHER, SELFPAY ==
[2019-09-29 14:48] LABS: BUN Creatinine Ratio 18.2 (6-22); Blood Urea Nitrogen 40 mg/dL (9-20); Calcium 9.8 mg/dL (8.4-10.2); Carbon Dioxide 25 mmol/L (22-32); Chloride 109 mmol/L (98-107); Glucose 77 mg/dL (80-110); HEMOLYSIS < 15 (0-50); Potassium 4.4 mmol/L (3.4-5.1); Sodium 143 mmol/L (137-145)
== END ==
PROVIDERS: PCP Family Medicine; Visit Provider Student in an Organized Health Care Education/Training Program
DX: N05.9 Unspecified nephritic syndrome with unspecified morphologic changes (principal)
CPT/HCPCS: 36415; 80048

== ENCOUNTER → 2019-10-23 14:49 | Outpatient (CLI) | payer MEDICARE, OTHER, SELFPAY ==
[2019-10-23 16:58] LABS: Creatinine Urine Random 57.8 mg/dL; Protein (Total) Urine Random 198 mg/dL (0-12); Protein Creatinine Ratio Urine 3.42 GRAM/24H
[2019-10-23 17:18] LABS: BUN Creatinine Ratio 13.4 (6-22); Blood Urea Nitrogen 39 mg/dL (9-20); Calcium 9.3 mg/dL (8.4-10.2); Carbon Dioxide 23 mmol/L (22-32); Chloride 105 mmol/L (98-107); Estimated Glomerular Filt Rate 21.1 mL/min (>60); Glucose 72 mg/dL (80-110); HEMOLYSIS < 15 (0-50); Potassium 3.9 mmol/L (3.4-5.1); Sodium 141 mmol/L (137-145)
== END ==
PROVIDERS: PCP Family Medicine; Visit Provider Student in an Organized Health Care Education/Training Program
DX: N05.9 Unspecified nephritic syndrome with unspecified morphologic changes (principal); R80.9 Proteinuria, unspecified
CPT/HCPCS: 36415; 80048; 82570; 84156

== ENCOUNTER 2019-11-14 15:08 | Inpatient (IN) | payer MEDICARE, OTHER, SELFPAY ==
[2019-11-14] VITALS (13 sets, daily range): BP systolic 113–162; BP diastolic 54–96; PULSE 54–129; RESP 14–20; TEMP 36.8; O2SAT 92–100; BMI 34.8
--- NOTE | 2019-11-14 16:28 | ED_ITS ---
HPI - Abdominal Pain General Chief Complaint: Abdominal Pain Stated Complaint: Abdominal pain Time Seen by Provider: 11/14/19 15:58 Source: patient, family and EMS Mode of arrival: EMS Limitations: no limitations History of Present Illness HPI narrative: The patient is a 79-year-old male who presents with abdominal pain and rectal pain along with urinary incontinence. It's been ongoing for the last 2 days. His according to he has been unable to get out of bed for the last 3-4 days he has significant pain in his bottom. Upon examination nursing found that he does have significant skin breakdown on his sacrum. He was also covered in urine. They did find hard stool in his rectum as well. He is noted to have significant scar from his sternum to his pelvis however he says he denies any actual abdominal pain he has no nausea or vomiting. He denies chest pain or shortness of breath. He mostly has pain in his bottom. states that actually patient has not been feeling very well for over a week she he was not moving for at least a week as well. However over last couple days his pain got worse. Onset (ago): day(s) Related Data Home Medications Medication Instructions Recorded Confirmed tamsulosin [Flomax] 0.4 mg PO QDAY #0 12/10/17 10/28/19 furosemide 40 mg tablet 60 mg PO Q DAY tab 07/01/18 10/28/19 vitamin B complex 1 tab PO DAILY 03/09/19 10/28/19 Previous Rx's Medication Instructions Recorded ipratropium-albuterol [Combivent 2 puff INH Q8HP PRN #1 inh 01/09/18 Respimat] polyethylene glycol 3350 17 gram 17 gram PO DAILY #30 each 06/16/18 oral powder packet colchicine 0.6 mg tablet 0.6 mg PO DAILY PRN #90 tab 07/02/18 rosuvastatin 40 mg tablet 40 mg PO BEDTIME #90 tab 05/11/19 carvedilol 12.5 mg tablet See Rx Instructions .ROUTE 08/31/19 .COMPLEX #90 tablet warfarin 2.5 mg tablet 2.5 mg PO DAILY #90 tab 09/29/19 Allergies Allergy/AdvReac Type Severity Reaction Status Date / Time diphenhydramine Allergy Intermediate Verified 10/28/19 14:25 [From BENADRYL] povidone-iodine AdvReac Mild Rash Verified 10/28/19 14:25 [From Betadine] soap [From Betadine] AdvReac Mild Rash Verified 10/28/19 14:25 Review of Systems Review of Systems ROS Unobtainable: All systems reviewed & are unremarkable except as noted in HPI and below Constitutional Constitutional: Denies chills, Denies fever(s), Denies lethargy and Denies weakness Eyes Eyes: Denies change in vision, Denies eye discharge, Denies irritation and Denies loss of vision ENT Ears, Nose, Mouth, and Throat: Denies change in voice, Denies neck pain and Denies sore throat Cardiovascular Cardiovascular: Denies chest pain, Denies irregular heart rhythm, Denies lightheadedness, Denies palpitations and Denies orthopnea Gastrointestinal Gastrointestinal: Denies abdominal pain, Denies change in bowel habits, Denies diarrhea, Denies nausea and Denies vomiting Genitourinary Genitourinary: Reports system reviewed and no additional complaints, except as docu and Reports urinary incontinence Musculoskeletal Musculoskeletal: Denies neck pain Integumentary/Breasts Skin/Breast: Denies pruritus, Denies erythema, Denies rash and Denies wounds Neurologic Neurologic: Denies loss of vision and Denies weakness Endocrine Endocrine: Denies palpitations Patient History Medical History AAA (abdominal aortic aneurysm) (Chronic 1998) Acute ischemic colitis (Resolved 2001) Anemia of chronic renal failure, stage 3 (moderate) (Chronic) Anticoagulated on warfarin (Chronic 04/14/15) CAD (coronary artery disease) (Chronic 1996) Cerebrovascular disease (Chronic 02/16/15) CHF (congestive heart failure) (Chronic) Chicken pox (Resolved ~1943) Chronic obstructive pulmonary disease (Chronic 05/15/12) Chronic renal failure, stage 2 (mild) (Chronic) Coronary artery disease (Chronic 02/09/15) Degenerative disc disease (Chronic) Diabetes (Resolved) Essential hypertension (Chronic) Gout (Chronic 2002) Hyperlipidemia (Chronic 05/15/12) Lumbar spine pain (Chronic 2004) Measles (Resolved ~1949) Myocardial infarction (Resolved 1996) PAD (peripheral artery disease) (Chronic) Peripheral vascular disease (Chronic 02/09/15) 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 Grandmother No problems noted. Sister No problems noted. Social History Smoking Status: Former smoker Smoking Status: Former smoker Substance Use Type: does not use Exam Initial Vital Signs Initial Vital Signs: Vital Signs Temperature 98.2 F 11/14/19 15:25 Pulse Rate 72 11/14/19 15:25 Respiratory Rate 14 11/14/19 15:25 Blood Pressure 132/85 11/14/19 15:25 Pulse Oximetry 100 11/14/19 15:25 GENERAL: Chronically ill male no acute distress HEENT: Head atraumatic,EOMI, pupils reactive CARDIOVASCULAR: Regular rate and rhythm without murmurs, rubs or gallops. RESPIRATORY: Breath sounds equal bilaterally, no wheezes rales or rhonchi. ABDOMEN: Soft, nontender. Normoactive bowel sounds all 4 quadrants. No guarding or rebound. RECTAL: Significant skin breakdown and excoriation is of the sacrum no abscess no drainage scar noted from sternum to pelvis no distension normal bowel sounds EXTREMITIES: Normal range of motion, no clubbing or edema. Neurovascularly intact NEUROLOGICAL: Alert and oriented x4. SKIN: Skin is fluctuation noted on the rectum no significant drainage Course Orders Ordered: ED Orders 11/14/19 16:26 Urine Culture Stat Urine Microscopic Stat 11/14/19 16:27 Complete Blood Count AUTO DIFF Stat Comprehensive Metabolic Panel Stat Lactate (Lactic Acid) Stat Lipase Stat Partial Thromboplastin Time Stat Prothrombin Time INR Stat 11/14/19 16:53 CT abdomen pelvis wo con Stat 11/14/19 18:10 XR chest 1V Stat 11/14/19 18:42 Wound Culture and Gram Stain Stat Sodium Chloride (Normal Saline 0.9%) 1,000 mls @ 200 mls/hr IV CONT SALMA Ceftriaxone Sodium/Dextrose (Rocephin) 1 gm in 50 mls @ 100 mls/hr IV NOW ONE Stop: 11/14/19 19:11 Vancomycin HCl/Dextrose (Vancomycin) 1,500 mg in 300 mls @ 200 mls/hr IV NOW O NE Stop: 11/14/19 20:11 Vital Signs Vital signs: Vital Signs - 8 hr 11/14/19 15:25 11/14/19 18:00 Temperature 98.2 F Pulse Rate 72 65 Respiratory Rate 14 Blood Pressure 132/85 Blood Pressure [Left Arm] 162/58 H Pulse Oximetry 100 92 MDM - Abdominal Pain Lab Data Attestation: I reviewed the patient's lab results. Result diagrams: 11/14/19 16:27 11/14/19 16:27 Labs: Lab Results 11/14/19 11/14/19 11/14/19 Range/Units 16:26 16:27 16:27 WBC 14.0 H (4.5-11.0) X10^3/uL RBC 4.12 L (4.5-5.9) X10^6/uL Hgb 13.0 L (13.5-17.5) g/dL Hct 38.9 L (41-53) % MCV 94.4 (80-100) fL MCH 31.5 (26-34) PG MCHC 33.3 (30-36) % RDW 15.4 H (11.6-14.8) % Plt Count 148 L (150-400) X10^3/uL Neut % (Auto) 90.7 H (50-75) % Lymph % (Auto) 2.5 L (25-40) % [place] % (Auto) 6.7 (3-14) % Eos % (Auto) 0.0 L (2-4) % Baso % (Auto) 0.1 (0-2) % Neut # (Auto) 19563 H (4569-6400) /uL Lymph # (Auto) 400 L (4254-1079) /uL [place] # (Auto) 900 (0-900) /uL Eos # (Auto) 0 (0-450) /uL Baso # (Auto) 0 (0-100) /uL PT 55.8 H (10.1-12.7) SECONDS INR 4.8 H* (0.9-1.3) APTT 59 H (26.4-36.2) SECONDS Sodium (137-145) mmol/L Potassium (3.4-5.1) mmol/L Chloride (98-107) mmol/L Carbon Dioxide (22-32) mmol/L BUN (9-20) mg/dL Creatinine (0.66-1.25) mg/dL Estimated GFR (>60) mL/min BUN/Creatinine Ratio (6-22) Glucose (80-110) mg/dL Lactate (0.7-2.1) mmol/L Calcium (8.4-10.2) mg/dL Total Bilirubin (0.2-1.3) mg/dL AST (17-59) IU/L ALT (<50) IU/L Alkaline Phosphatase (38-126) U/L Total Protein (6.3-8.2) g/dL Albumin (3.5-5.0) g/dL Globulin (1.7-4.1) g/dL Albumin/Globulin Ratio (1.0-2.8) Lipase (23-300) U/L Urine RBC 1-5/hpf (0-5/HPF) Urine WBC 1-5/hpf (0-5/HPF) Ur Squamous Epith Cells None seen (0-5/HPF) Urine Bacteria None seen (None) Granular Casts 1-5/lpf (None) Ur Culture Indicated? Specimen cultured 11/14/19 11/14/19 Range/Units 16:27 16:27 WBC (4.5-11.0) X10^3/uL RBC (4.5-5.9) X10^6/uL Hgb (13.5-17.5) g/dL Hct (41-53) % MCV (80-100) fL MCH (26-34) PG MCHC (30-36) % RDW (11.6-14.8) % Plt Count (150-400) X10^3/uL Neut % (Auto) (50-75) % Lymph % (Auto) (25-40) % [place] % (Auto) (3-14) % Eos % (Auto) (2-4) % Baso % (Auto) (0-2) % Neut # (Auto) (1466-9486) /uL Lymph # (Auto) (8933-2575) /uL [place] # (Auto) (0-900) /uL Eos # (Auto) (0-450) /uL Baso # (Auto) (0-100) /uL PT (10.1-12.7) SECONDS INR (0.9-1.3) APTT (26.4-36.2) SECONDS Sodium 137 (137-145) mmol/L Potassium 4.2 (3.4-5.1) mmol/L Chloride 101 (98-107) mmol/L Carbon Dioxide 21 L (22-32) mmol/L BUN 75 H (9-20) mg/dL Creatinine 3.60 H (0.66-1.25) mg/dL Estimated GFR 16.4 L (>60) mL/min BUN/Creatinine Ratio 20.8 (6-22) Glucose 129 H (80-110) mg/dL Lactate 2.4 H (0.7-2.1) mmol/L Calcium 9.5 (8.4-10.2) mg/dL Total Bilirubin 2.6 H (0.2-1.3) mg/dL AST 30 (17-59) IU/L ALT 25 (<50) IU/L Alkaline Phosphatase 111 (38-126) U/L Total Protein 8.4 H (6.3-8.2) g/dL Albumin 4.2 (3.5-5.0) g/dL Globulin 4.2 H (1.7-4.1) g/dL Albumin/Globulin Ratio 1.0 (1.0-2.8) Lipase 199 (23-300) U/L Urine RBC (0-5/HPF) Urine WBC (0-5/HPF) Ur Squamous Epith Cells (0-5/HPF) Urine Bacteria (None) Granular Casts (None) Ur Culture Indicated? Point of care testing: Urine Dip Bedside Urine Glucose Negative Bedside Urine Bilirubin - Negative Bedside Urine Ketone - Negative Urine Specific [place] 1.020 Bedside Urine Occult Blood +++ Bedside Urine pH 6.0 Bedside Urine Protein +++ 300 Bedside Urine Urobilinogen - Negative Bedside Urine Nitrite - Negative Bedside Urine Leukocytes - Negative Esterase Imaging Data CT scan - abdomen/pelvis: Radiologist's Impression: PROCEDURE: CT ABDOMEN PELVIS WO CON INDICATIONS: pain TECHNIQUE: Noncontrast 5 mm thick sections acquired from the diaphragms to the symphysis. 5 mm coronal and sagittal reformats were then performed. For radiation dose reduction, the following was used: automated exposure control, adjustment of mA and/or kV according to patient size. COMPARISON: [facility], CT, CT KIDNEY URETER BLADDER (KUB), 06/03/2018, 11:03. FINDINGS: Image quality: Prominently limited related to patient motion artifact throughout the abdomen and pelvis. ABDOMEN: Lung bases: Atelectasis is seen within the lung bases. This is not well charac terized. The heart is enlarged. A small amount of air appears to be present within the right atrium. Coronary and aortic atherosclerosis is noted. Solid organs: The solid organs are not adequately characterized related to motion artifact and lack of intravenous contrast. However, the liver and spleen are unremarkable. Cholelithiasis is noted. The pancreas and adrenals appear to be within normal limits. The left kidney is atrophic and contains renal calculi. There may be vascular versus renal calculi on the right. There may be left-sided hydronephrosis versus an extrarenal pelvis. Peritoneum and bowel: The stomach is unremarkable. The small bowel loops are nondilated. The amount of stool within the colon is within normal limits. No free fluid or loculated fluid collection is identified. Nodes and vessels: No retroperitoneal or mesenteric adenopathy by size criteria. Severe aortic atherosclerosis is present with prominent narrowing of the mid aorta by greater than 75%, which is similar to the previous exam. Postoperative changes within the retroperitoneum resulted in suboptimal evaluation of the mid to lower abdominal aorta just above the level of the bifurcation related to metallic beam hardening artifact. There is a femoral-femoral bypass graft identified. Patency of the graft is not able to be identified related to lack of intraluminal contrast. Postoperative changes within the bilateral inguinal regions are noted. Severe atherosclerosis of the iliac arteries is also evident. Bones: No obvious fractures or suspicious lesions are appreciated. Age- appropriate degenerative changes of the spine are noted through. PELVIS: Genitourinary: Thickening of the urinary bladder wall is identified. The prostate is mildly enlarged and contains coarse calcifications. Miscellaneous: There is a small moderate-sized fat containing left in the hernia . There may be a small right fat containing inguinal hernia. No free fluid or loculated fluid collection is evident. Bones: No suspicious bony lesions. No displaced fractures are evident. Age-a ppropriate degenerative changes of the pelvic bones are evident. IMPRESSION: 1. Suboptimal CT of the abdomen and pelvis related to motion artifact. 2. Cardiomegaly. 3. Prominent coronary and aortic atherosclerosis. There appears to be severe narrowing of the mid to lower abdominal aorta related to aortic atherosclerotic calcifications. 4. Cholelithiasis. 5. Atrophic left kidney. 6. Urinary bladder wall thickening may represent cystitis or chronic bladder outlet obstruction. Please correlate clinically. 7. No bowel obstruction. 8. Bilateral fat containing inguinal hernias. Dictated by: Victor Hugo Abreu M.D. on 11/14/2019 at 16:37 MDM Narrative Medical decision making narrative: Patient's creatinine is noted to be elevated today. However his baseline is around 2.1-2.9 today is 3.6. he has also noted to have leukocytosis of 14 with a lactic acid of 2.4. At this time no obvious source of in infection except for his sacrum. is unable to get him up and move him. It is started on antibiotics Rocephin and vancomycin. I discussed case with Dr. Tom who was happy to accept him. He overall is afebrile and normotensive does not appear septic. is clearly an able to care for him at home. Discharge Plan Departure Patient Disposition: Admitted As Inpatient Clinical Impression: Pressure sore of ischial area Qualifiers: Pressure injury stage: unspecified pressure injury stage Laterality: unspecified laterality Qualified Code(s): L89.309 - Pressure ulcer of unspecified buttock, unspecified stage Cellulitis Qualifiers: Site of cellulitis: buttock Qualified Code(s): L03.317 - Cellulitis of buttock
[2019-11-14 16:42] LABS: Bacteria Urine None Seen
--- NOTE | 2019-11-14 16:53 | DI.CT.S_ITS ---
PROCEDURE: CT ABDOMEN PELVIS WO CON INDICATIONS: pain TECHNIQUE: Noncontrast 5 mm thick sections acquired from the diaphragms to the symphysis. 5 mm coronal and sagittal reformats were then performed. For radiation dose reduction, the following was used: automated exposure control, adjustment of mA and/or kV according to patient size. COMPARISON: [facility], CT, CT KIDNEY URETER BLADDER (KUB), 06/03/2018, 11:03. FINDINGS: Image quality: Prominently limited related to patient motion artifact throughout the abdomen and pelvis. ABDOMEN: Lung bases: Atelectasis is seen within the lung bases. This is not well characterized. The heart is enlarged. A small amount of air appears to be present within the right atrium. Coronary and aortic atherosclerosis is noted. Solid organs: The solid organs are not adequately characterized related to motion artifact and lack of intravenous contrast. However, the liver and spleen are unremarkable. Cholelithiasis is noted. The pancreas and adrenals appear to be within normal limits. The left kidney is atrophic and contains renal calculi. There may be vascular versus renal calculi on the right. There may be left-sided hydronephrosis versus an extrarenal pelvis. Peritoneum and bowel: The stomach is unremarkable. The small bowel loops are nondilated. The amount of stool within the colon is within normal limits. No free fluid or loculated fluid collection is identified. Nodes and vessels: No retroperitoneal or mesenteric adenopathy by size criteria. Severe aortic atherosclerosis is present with prominent narrowing of the mid aorta by greater than 75%, which is similar to the previous exam. Postoperative changes within the retroperitoneum resulted in suboptimal evaluation of the mid to lower abdominal aorta just above the level of the bifurcation related to metallic beam hardening artifact. There is a femoral-femoral bypass graft identified. Patency of the graft is not able to be identified related to lack of intraluminal contrast. Postoperative changes within the bilateral inguinal regions are noted. Severe atherosclerosis of the iliac arteries is also evident. Bones: No obvious fractures or suspicious lesions are appreciated. Age-appropriate degenerative changes of the spine are noted through. PELVIS: Genitourinary: Thickening of the urinary bladder wall is identified. The prostate is mildly enlarged and contains coarse calcifications. Miscellaneous: There is a small moderate-sized fat containing left in the hernia. There may be a small right fat containing inguinal hernia. No free fluid or loculated fluid collection is evident. Bones: No suspicious bony lesions. No displaced fractures are evident. Age-appropriate degenerative changes of the pelvic bones are evident. IMPRESSION: 1. Suboptimal CT of the abdomen and pelvis related to motion artifact. 2. Cardiomegaly. 3. Prominent coronary and aortic atherosclerosis. There appears to be severe narrowing of the mid to lower abdominal aorta related to aortic atherosclerotic calcifications. 4. Cholelithiasis. 5. Atrophic left kidney. 6. Urinary bladder wall thickening may represent cystitis or chronic bladder outlet obstruction. Please correlate clinically. 7. No bowel obstruction. 8. Bilateral fat containing inguinal hernias. Dictated by: Victor Hugo Abreu M.D. on 11/14/2019 at 16:37 Approved by: Victor Hugo Abreu M.D. on 11/14/2019 at 16:45
[2019-11-14 16:57] LABS: Add Manual Diff / Slide Review NO; Basophils Absolute Auto 0 /uL (0-100); Basophils Percent Auto 0.1 % (0-2); Eosinophils Absolute Auto 0 /uL (0-450); Hematocrit 38.9 % (41-53); Lymphocytes Absolute Auto 400 /uL (1100-4500); Lymphocytes Percent Auto 2.5 % (25-40); Mean Corpuscular HGB Conc 33.3 % (30-36); Mean Corpuscular Hemoglobin 31.5 PG (26-34); Mean Corpuscular Volume 94.4 fL (80-100); Monocytes Absolute Auto 900 /uL (0-900); Monocytes Percent Auto 6.7 % (3-14); Neutrophils Absolute Auto 12700 /uL (1500-7000); Neutrophils Percent Auto 90.7 % (50-75); Platelet Count 148 X10^3/uL (150-400); Red Blood Cell Count 4.12 X10^6/uL (4.5-5.9); Red Cell Distribution Width 15.4 % (11.6-14.8)
[2019-11-14 17:00] LABS: Lactate (Lactic Acid) 2.4 mmol/L (0.7-2.1)
[2019-11-14 17:01] LABS: Alanine Aminotransferase 25 IU/L (<50); Albumin 4.2 g/dL (3.5-5.0); Alkaline Phosphatase 111 U/L (38-126); Aspartate Aminotransferase 30 IU/L (17-59); BUN Creatinine Ratio 20.8 (6-22); Bilirubin Total 2.6 mg/dL (0.2-1.3); Blood Urea Nitrogen 75 mg/dL (9-20); Calcium 9.5 mg/dL (8.4-10.2); Carbon Dioxide 21 mmol/L (22-32); Chloride 101 mmol/L (98-107); Estimated Glomerular Filt Rate 16.4 mL/min (>60); Globulin 4.2 g/dL (1.7-4.1); Glucose 129 mg/dL (80-110); HEMOLYSIS < 15 (0-50); Lipase 199 U/L (23-300); PTT Partial Thromboplastin Tim 59 SECONDS (26.4-36.2); Potassium 4.2 mmol/L (3.4-5.1); Sodium 137 mmol/L (137-145); Total Protein 8.4 g/dL (6.3-8.2)
[2019-11-14 17:05] LABS: Prothrombin Time 55.8 SECONDS (10.1-12.7)
[2019-11-14 17:06] LABS: INR 4.8 (0.9-1.3)
[2019-11-14 17:20] LABS: Culture Indicated Urine Specimen Cultured; Granular Casts Urine 1-5/LPF; RBC Urine 1-5/HPF (0-5/HPF); Squamous Epithelial Cell Urine None Seen (0-5/HPF); WBC Urine 1-5/HPF (0-5/HPF)
--- NOTE | 2019-11-14 18:10 | DI.RAD.S_ITS ---
PROCEDURE: XR CHEST 1V INDICATIONS: sob TECHNIQUE: One view of the chest was acquired. COMPARISON: [facility], CT, CT ABDOMEN PELVIS WO CON, 11/14/2019, 17:10. [facility], CR, CHEST 2 VIEW, 01/07/2018, 5:26. FINDINGS: Surgical changes and devices: Sternal wires. Lungs and pleura: Increased pulmonary vascularity is present. Mediastinum: Mediastinal contours appear normal. Heart size is mildly enlarged. Bones and chest wall: No suspicious bony lesions. Overlying soft tissues appear unremarkable. IMPRESSION: Cardiomegaly with increased vascular suggestive of edema. Dictated by: Donna Hunter M.D. on 11/14/2019 at 18:37 Approved by: Donna Hunter M.D. on 11/14/2019 at 18:38
[2019-11-14 18:52] LABS: Reflexed Lactate in 2 Hours Y
[2019-11-14] MEDS: SODIUM CHLORIDE 0.9% 1,000 ML 200 ML IV (19:21)
[2019-11-14] MEDS: CEFTRIAXONE 1 GM/50 ML FROZ.PIGGY IV (19:21)
[2019-11-14 19:37] LABS: Lactate 2HR (Lactic Acid Rflx) 1.4 mmol/L (0.7-2.1)
[2019-11-14 19:51] LABS: B Type Natriuretic Peptide 2370 (<100)
[2019-11-14] MEDS: SODIUM CHLORIDE 0.9% 1,000 ML 125 ML IV ×3 (20:14→22:11)
[2019-11-14] MEDS: VANCOMYCIN 1,500 MG/300 ML FROZ.PIGGY 200 MG IV (20:16)
[2019-11-14] MEDS: carvediloL 12.5 MG TABLET 18.75 MG PO (22:06)
[2019-11-14] MEDS: TAMSULOSIN 0.4 MG CAPSULE PO (22:06)
[2019-11-14] MEDS: FUROSEMIDE 40 MG TABLET 20 MG PO (22:09)
[2019-11-14] MEDS: SODIUM CHLORIDE 0.9% 1,000 ML 100 ML IV (22:12)
--- NOTE | 2019-11-14 22:33 | PC.NURSE ---
Devora shift admission note: Patient admitted to room 208 from ED, unable to bear weight, transferred from [facility] to bed with slider board. Patient unable to tolerate movement and repositioning, significant discomfort to buttocks and perineal area. No pain or discomfort at rest. Placed on O2 at 2L via NC, desats mid/high 80's. 94% on O2. Please see skin assessment for details and photo. Oriented to room, environment, and plan of care. Melissa at bedside providing supportive care. will bring Advanced directive in the am
--- NOTE | 2019-11-15 03:50 | PC.NURSE ---
Addendum entered by Amber Byrne R.N. 11/15/19 06:36: Dr Tom notified of critical values. Addendum entered by Amber Byrne R.N. 11/15/19 06:23: Critical lab values: Pro time 62.3 and INR 5.0, will notify citizen participation specialist MD. Original Note: Shift note: Received pt from evening shift. Patient alert to self and , believes he's at [facility], but knows that [facility] is in [place], states he's in the hospital for giving my a hard time. Appeared more confused at start of shift, but became more aware and conversant later in shift. Patient requiring supplemental oxygen, removes it due to confusion and requires it to be replaced and re-educated. Will desat into 70-80's. Patient denies pain but becomes quite agitated, screams out and uses profanity, and grabs at staff when turned or pericare is performed. Turning patient every 2 hours for pressure relief, heels floated, patient has 4+ pitting edema to ankles, SCDs on and functioning. Patient unable to call appropriately, cannot demonstrate use of call light, bed alarm on and functioning, high fall risk, in view room.
[2019-11-15 06:00] LABS: Add Manual Diff / Slide Review NO; Basophils Absolute Auto 100 /uL (0-100); Basophils Percent Auto 0.4 % (0-2); Eosinophils Absolute Auto 0 /uL (0-450); Eosinophils Percent Auto 0.1 % (2-4); Hematocrit 36.4 % (41-53); Lymphocytes Absolute Auto 400 /uL (1100-4500); Lymphocytes Percent Auto 3.4 % (25-40); Mean Corpuscular HGB Conc 33.1 % (30-36); Mean Corpuscular Hemoglobin 31.6 PG (26-34); Mean Corpuscular Volume 95.5 fL (80-100); Monocytes Absolute Auto 1000 /uL (0-900); Monocytes Percent Auto 8.2 % (3-14); Neutrophils Absolute Auto 10500 /uL (1500-7000); Neutrophils Percent Auto 87.9 % (50-75); Platelet Count 124 X10^3/uL (150-400); Red Blood Cell Count 3.81 X10^6/uL (4.5-5.9); Red Cell Distribution Width 15.4 % (11.6-14.8)
[2019-11-15 06:10] LABS: BUN Creatinine Ratio 21.1 (6-22); Blood Urea Nitrogen 78 mg/dL (9-20); Calcium 8.8 mg/dL (8.4-10.2); Carbon Dioxide 20 mmol/L (22-32); Chloride 103 mmol/L (98-107); Estimated Glomerular Filt Rate 15.9 mL/min (>60); Glucose 102 mg/dL (80-110); HEMOLYSIS < 15 (0-50); Magnesium 2.6 mg/dL (1.6-2.3); Potassium 3.8 mmol/L (3.4-5.1); Sodium 137 mmol/L (137-145)
[2019-11-15 06:12] LABS: Prothrombin Time 62.3 SECONDS (10.1-12.7)
[2019-11-15 06:23] LABS: INR 5.2 (0.9-1.3)
[2019-11-15] MEDS: SODIUM CHLORIDE 0.9% 1,000 ML 100 ML IV ×2 (07:51→20:01)
[2019-11-15] MEDS: CEFTRIAXONE 1 GM/50 ML FROZ.PIGGY IV ×2 (07:52→20:00)
[2019-11-15 08:00] VITALS: BP 128/65; PULSE 50; RESP 24; TEMP 35.9; O2SAT 97
--- NOTE | 2019-11-15 09:00 | P.HP_ITS ---
History of Present Illness History of Present Illness Date Patient Seen: 11/15/19 Time Patient Seen: 09:00 Chief complaint: Abdominal pain Narrative: Back pain. Patient came to the emergency room last night because of having severe back pain. Patient has had chronic back pain for years. However seem to get worse recently. Initially had complained of abdominal pain and that has since resolved. Evaluation in the emergency room found him to be uncomfortable. He had skin breakdown and some erythema around the sacral area felt to be imminent ulcers and was admitted for evaluation of his his sacral erythema. Patient lives with his and apparently he is becoming more more difficult to manage at home because of his chronic pain and his disabilities. He denies having fallen but he has some bruises on his right flank that is consistent with same. Patient has multiple medical problems most of which were are related to atherosclerosis. He has cerebral artery disease, apparent history of stroke, coronary artery disease, status post bypass graft, aortic valve replacement, atrial fibrillation, congestive heart failure, chronic kidney injury, abdominal aortic aneurysm, peripheral vascular insufficiency status post bypass. Far as I can tell he does see a prevention rn. He sees a shrimp peeler on a regular basis saw by shrimp peeler weeks ago geoffrey lated medications because of increasing creatinine. Had been on increased dose of Lasix was is decreased to 20 mg. Additionally was on losartan which was discontinued pain tip patient typically has a creatinine of approximately 2.5. Patient this morning mainly complains of generalized pain and feeling miserable. He has no specific complaints Patient History Medical History AAA (abdominal aortic aneurysm) (Chronic 1998) Acute ischemic colitis (Resolved 2001) Anemia of chronic renal failure, stage 3 (moderate) (Chronic) Anticoagulated on warfarin (Chronic 04/14/15) CAD (coronary artery disease) (Chronic 1996) Cerebrovascular disease (Chronic 02/16/15) CHF (congestive heart failure) (Chronic) Chicken pox (Resolved ~1943) Chronic obstructive pulmonary disease (Chronic 05/15/12) Chronic renal failure, stage 2 (mild) (Chronic) Coronary artery disease (Chronic 02/09/15) Degenerative disc disease (Chronic) Diabetes (Resolved) Essential hypertension (Chronic) Gout (Chronic 2002) Hyperlipidemia (Chronic 05/15/12) Lumbar spine pain (Chronic 2004) Measles (Resolved ~1950) Myocardial infarction (Resolved 1996) PAD (peripheral artery disease) (Chronic) Peripheral vascular disease (Chronic 02/09/15) 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 Grandmother No problems noted. Sister No problems noted. Safety & Behavioral: Feels Safe in Current Yes Environment Tobacco & Substance use: Smoking Status Former smoker Substance Use Type does not use Meds Home Medications and Allergies Home Medications Medication Instructions Recorded Confirmed Type tamsulosin [Flomax] 0.4 mg PO QDAY #0 12/10/17 11/14/19 History furosemide 40 mg tablet 20 mg PO Q DAY tab 07/01/18 11/14/19 History vitamin B complex 1 tab PO DAILY 03/09/19 11/14/19 History rosuvastatin 40 mg tablet 40 mg PO BEDTIME #90 tab 05/11/19 11/14/19 Rx carvedilol 12.5 mg tablet See Rx Instructions .ROUTE 08/31/19 11/14/19 Rx .COMPLEX #90 tablet warfarin 2.5 mg tablet 2.5 mg PO DAILY #90 tab 09/29/19 11/14/19 Rx Allergies Allergy/AdvReac Type Severity Reaction Status Date / Time diphenhydramine Allergy Intermediate Verified 10/28/19 14:25 [From BENADRYL] povidone-iodine AdvReac Mild Rash Verified 10/28/19 14:25 [From Betadine] soap [From Betadine] AdvReac Mild Rash Verified 10/28/19 14:25 Review of Systems Review of Systems ROS Unobtainable: All systems reviewed & are unremarkable except as noted in HPI and below Exam Vital Signs (past 8 hours): Oxygen Delivery Method Nasal Cannula Oxygen Flow Rate 2 Narrative Exam Narrative: The patient examined hospital bed had initially resting quietly. He yells and screams violently and loudly would be moving in any direction a period complains of severe pain no particular place. Head is no signs of trauma. HEENT otherwise normal. Lungs are clear. Cardiac exam regular rhythm no murmur gallop. Abdominal exam is obese no apparent tenderness no masses no hepatosplenomegaly. Sacral areas exam is got a fair amount of erythema at the intergluteal cleft and at the sacrum. No actual ulcer is seen has a fair amount of stool that is required to be removed. And is markedly tender He has +1 edema of his feet he has SCDs on. Parentheses INR prolonged in paren theses His neurologic exam cranial nerves 2-12 intact. Mental status he yells and screams act complains about everything. Otherwise he cells down. He has normal strength sensation upper lower extremities and they are symmetric Objective Labs Result Diagrams: 11/15/19 05:43 11/15/19 05:43 Labs: Laboratory Results - last 24 hr 11/14/19 11/14/19 11/14/19 16:26 16:27 16:27 WBC 14.0 H RBC 4.12 L Hgb 13.0 L Hct 38.9 L MCV 94.4 MCH 31.5 MCHC 33.3 RDW 15.4 H Plt Count 148 L Neut % (Auto) 90.7 H Lymph % (Auto) 2.5 L [place] % (Auto) 6.7 Eos % (Auto) 0.0 L Baso % (Auto) 0.1 Neut # (Auto) 25145 H Lymph # (Auto) 400 L [place] # (Auto) 900 Eos # (Auto) 0 Baso # (Auto) 0 PT 55.8 H INR 4.8 H* APTT 59 H Sodium Potassium Chloride Carbon Dioxide BUN Creatinine Estimated GFR BUN/Creatinine Ratio Glucose Lactate Calcium Magnesium Total Bilirubin AST ALT Alkaline Phosphatase B-Natriuretic Peptide Total Protein Albumin Globulin Albumin/Globulin Ratio Lipase Urine RBC 1-5/hpf Urine WBC 1-5/hpf Ur Squamous Epith Cells None seen Urine Bacteria None seen Granular Casts 1-5/lpf Ur Culture Indicated? Specimen cultured 11/14/19 11/14/19 11/14/19 16:27 16:27 19:17 WBC RBC Hgb Hct MCV MCH MCHC RDW Plt Count Neut % (Auto) Lymph % (Auto) [place] % (Auto) Eos % (Auto) Baso % (Auto) Neut # (Auto) Lymph # (Auto) [place] # (Auto) Eos # (Auto) Baso # (Auto) PT INR APTT Sodium 137 Potassium 4.2 Chloride 101 Carbon Dioxide 21 L BUN 75 H Creatinine 3.60 H Estimated GFR 16.4 L BUN/Creatinine Ratio 20.8 Glucose 129 H Lactate 2.4 H 1.4 Calcium 9.5 Magnesium Total Bilirubin 2.6 H AST 30 ALT 25 Alkaline Phosphatase 111 B-Natriuretic Peptide Total Protein 8.4 H Albumin 4.2 Globulin 4.2 H Albumin/Globulin Ratio 1.0 Lipase 199 Urine RBC Urine WBC Ur Squamous Epith Cells Urine Bacteria Granular Casts Ur Culture Indicated? 11/14/19 11/15/19 11/15/19 19:17 05:43 05:43 WBC 12.0 H RBC 3.81 L Hgb 12.0 L Hct 36.4 L MCV 95.5 MCH 31.6 MCHC 33.1 RDW 15.4 H Plt Count 124 L Neut % (Auto) 87.9 H Lymph % (Auto) 3.4 L [place] % (Auto) 8.2 Eos % (Auto) 0.1 L Baso % (Auto) 0.4 Neut # (Auto) 41568 H Lymph # (Auto) 400 L [place] # (Auto) 1000 H Eos # (Auto) 0 Baso # (Auto) 100 PT 62.3 H D INR 5.2 H* APTT Sodium Potassium Chloride Carbon Dioxide BUN Creatinine Estimated GFR BUN/Creatinine Ratio Glucose Lactate Calcium Magnesium Total Bilirubin AST ALT Alkaline Phosphatase B-Natriuretic Peptide 2370 H Total Protein Albumin Globulin Albumin/Globulin Ratio Lipase Urine RBC Urine WBC Ur Squamous Epith Cells Urine Bacteria Granular Casts Ur Culture Indicated? 11/15/19 05:43 WBC RBC Hgb Hct MCV MCH MCHC RDW Plt Count Neut % (Auto) Lymph % (Auto) [place] % (Auto) Eos % (Auto) Baso % (Auto) Neut # (Auto) Lymph # (Auto) [place] # (Auto) Eos # (Auto) Baso # (Auto) PT INR APTT Sodium 137 Potassium 3.8 Chloride 103 Carbon Dioxide 20 L BUN 78 H Creatinine 3.70 H Estimated GFR 15.9 L BUN/Creatinine Ratio 21.1 Glucose 102 Lactate Calcium 8.8 Magnesium 2.6 H Total Bilirubin AST ALT Alkaline Phosphatase B-Natriuretic Peptide Total Protein Albumin Globulin Albumin/Globulin Ratio Lipase Urine RBC Urine WBC Ur Squamous Epith Cells Urine Bacteria Granular Casts Ur Culture Indicated? Labs above if we reviewed from the emergency room. Of significance are his creatinine is elevated. Elevated lactate that has since normalized. Elevated white blood cell count. BNP at 2370 prolonged INR Chest x-ray consistent with CHF. Abdominal CT various minor abnormalities none of which are off of significant Assessment & Plan Assessment & Plan narrative: 1. Presacral erythema imminent ulcers patient will need skin care. And physical therapy and occupational therapy assess for activities to help sacral area heel. Patient likely to require his sniff refer ral for ongoing physical therapy and skin care. 2. He has chronic pain chronic back pain that is ongoing. 3. Significant vasculopath with multi system involvement. His shrimp peeler feels some of his renal failure secondary to vascular insufficiency. These diagnoses as stated above appears stable. 4. Prolonged INR will withhold his Coumadin for now. 5. Worsening of his chronic kidney injury probably secondary to his congestive heart failure as manifested by is x-ray and BNP. 6. Presumed CHF based on the about data patient will have an echocardiogram to get some updated that. Will give him a 40 mg of IV Lasix see if that helps with the the edema, the creatinine may get worse however. 7. Increased white count increased lactate on admission. May be related to has cellulitis of the sacral area normalized no significant concern for sepsis as stated above. 8. Code status unclear at this time. I have written for him to be full code presumably needs to be addressed by his primary care physician Dr. Chiu who will be seeing him tomorrow
--- NOTE | 2019-11-15 09:10 | DI.ECHO.S_ITS ---
[facility] +---------+ [facility] +---------+ : : [address] : : : : [id number] : : : : Phone: [phone] Echocardiogram Report + + :Name: SIVA GALAVIZ Study Date: 11/16/2019 Height: 209 in: :[facility] Weight: 65 lb : : Gender: Male BSA: 2.9 m2 : :: 1940 Age: 79 yrs : :Reason For Study: CHF : :Ordering Physician: Dr. Turner : :Negro Performed By: Hai Craig : :Referring: MONICA BOURGEOIS : + + Interpretation Summary The left ventricle is normal in size. There is mild concentric left ventricular hypertrophy. Biplane Young estimated ejection fraction of 45% but visually it appears to be around 35%. Even with Definity contrast wall motion abnormalities cannot be accurately assessed but appears to be predominantly globally hypokinetic.. The right ventricle is moderately dilated. Right ventricular systolic function is severely reduced. The right ventricular systolic pressure is estimated to be at least 61 mmHg based on an estimated right atrial pressure of 15 mm Hg. The left atrium is moderately dilated. The right atrium is mildly dilated. There is mild to moderate mitral regurgitation. There is mild aortic regurgitation. There is moderate tricuspid regurgitation. There is no other significant valvular heart disease. The aortic root is normal size. -LV ejection fraction appears to be grossly the same as previous study but RV systolic function appears to have reduced from moderate to severely reduced systolic function. Procedure: A two-dimensional transthoracic echocardiogram with color flow and Doppler was performed. The study quality was technically difficult. A contrast injection of Definity was performed to improve assessment of LV function. Prior echo performed on 11/22/15. The patient was in a bradycardic rhythm during the exam. The heart rate ranged between 39-50 bpm during the study. Left Ventricle: The left ventricle is normal in size. There is mild concentric left ventricular hypertrophy. Biplane Young estimated ejection fraction of 45% but visually it appears to be around 35%. Even with Definity contrast wall motion abnormalities cannot be accurately assessed but appears to be predominantly globally hypokinetic.. Right Ventricle: The right ventricle is moderately dilated. Right ventricular systolic function is severely reduced. Atria: The left atrium is moderately dilated. The right atrium is mildly dilated. The interatrial septum is intact with no evidence for an atrial septal defect. Mitral Valve: The mitral valve leaflets appear mildly thickened, but open well. There is mild to moderate mitral regurgitation. Aortic Valve: There is mild aortic valve sclerosis. The aortic valve is trileaflet. The aortic valve opens well. There is mild aortic regurgitation. Tricuspid Valve: The tricuspid valve leaflets are thin and pliable. There is moderate tricuspid regurgitation. The right ventricular systolic pressure is estimated to be at least 61 mmHg based on an estimated right atrial pressure of 15 mm Hg. Pulmonic Valve: The pulmonic valve is not well visualized. There is trace pulmonic regurgitation. There is no other significant valvular heart disease. Great Vessels: The aortic root is normal size. The dimensions of the ascending aorta are normal. The pulmonary artery is normal size. The IVC is dilated (diameter is greater than 2.1 cm) and it collapses less than 50% with a sniff. This suggests a high right atrial pressure of 15 mm Hg. Pericardium/ Pleura There is no pericardial effusion. There is no pleural effusion. MMode/2D Measurements & Calculations LVIDd: 4.8 cm LVOT diam: 2.0 cm LVIDs: 3.9 cm Ao root diam: 2.9 cm FS: 19.1 % Aortic Jxn: 2.7 cm EPSS: 1.9 cm asc Aorta Diam: 3.3 cm IVSd: 1.3 cm LVPWd: 1.4 cm LV gutierrez. diameter/BSA (cm/m^2): 1.7 LV sys. diameter/BSA (cm/m^2): 1.4 LA A2 area: 32.1 cm2 RA long axis: 6.8 cm LA A4 area: 30.3 cm2 RA area: 25.3 cm2 LA length (vol): 6.4 cm RA vol: 79.5 ml LA vol: 128.9 ml RA : 27.8 ml/m2 LA vol index: 45.0 ml/m2 IVC diam: 3.1 cm TAPSE: 0.74 cm Doppler Measurements & Calculations Ao V2 max: 133.3 cm/sec LVOT Max Laim: 99.2 cm/sec Ao V2 mean: 90.6 cm/sec LV V1 max P.9 mmHg Ao max P.1 mmHg LV V1 VTI: 22.3 cm Ao mean P.7 mmHg SHOAIB(I,D): 2.0 cm2 Ao V2 VTI: 35.2 cm SHOAIB(V,D): 2.3 cm2 sev ratio: 0.63 SHOAIB indexed to BSA (cm^2/m^2): 0.70 AI P1/2t: 574.8 msec AI dec slope: 135.5 cm/sec2 MV E max liam: 83.9 cm/sec TR max liam: 330.3 cm/sec MV A max liam: 30.4 cm/sec TR max P.7 mmHg MV E/A: 2.8 PA V2 max: 64.3 cm/sec Med Peak E' Liam: 4.3 cm/sec PA V2 mean: 40.0 cm/sec E/E' med: 19.3 PA mean P.75 mmHg Lat Peak E' Liam: 4.6 cm/sec PA Accel Time: 0.09 sec E/E' lat: 18.3 E/e' average: 18.8 MV dec time: 0.16 sec SV(LVOT): 70.2 ml Reading Physician:02:04 PM
[2019-11-15] MEDS: carvediloL 12.5 MG TABLET 18.75 MG PO ×2 (10:05→20:03)
[2019-11-15] MEDS: FUROSEMIDE 40 MG TABLET 20 MG PO (10:08)
[2019-11-15] MEDS: FUROSEMIDE 40 MG/4 ML VIAL IV (10:13)
[2019-11-15] MEDS: TAMSULOSIN 0.4 MG CAPSULE PO (10:13)
--- NOTE | 2019-11-15 12:00 | PT.IIE ---
Surgical History (Last Reviewed 11/15/19 @ 09:03 by Johnny Tom MD) Anesthesia (Resolved) Cataract (Resolved) Cataract (Resolved) H/O coronary artery bypass surgery (Resolved 2005) History of aortic valve replacement (Resolved 1998) History of bladder surgery (Resolved 2008) History of colon surgery (Resolved 2001) Surgically constructed arteriovenous graft (Resolved 2000) Surgically constructed arteriovenous graft (Resolved 2008) Medical History (Last Reviewed 11/15/19 @ 09:03 by Johnny Tom MD) AAA (abdominal aortic aneurysm) (Chronic 1998) Acute ischemic colitis (Resolved 2001) Anemia of chronic renal failure, stage 3 (moderate) (Chronic) Anticoagulated on warfarin (Chronic 04/14/15) CAD (coronary artery disease) (Chronic 1996) Cerebrovascular disease (Chronic 02/16/15) CHF (congestive heart failure) (Chronic) Chicken pox (Resolved ~1943) Chronic obstructive pulmonary disease (Chronic 05/15/12) Chronic renal failure, stage 2 (mild) (Chronic) Coronary artery disease (Chronic 02/09/15) Degenerative disc disease (Chronic) Diabetes (Resolved) Essential hypertension (Chronic) Gout (Chronic 2002) Hyperlipidemia (Chronic 05/15/12) Lumbar spine pain (Chronic 2004) Measles (Resolved ~1950) Myocardial infarction (Resolved 1996) PAD (peripheral artery disease) (Chronic) Peripheral vascular disease (Chronic 02/09/15) 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) Systolic congestive heart failure (Chronic) Physical Therapy Inpatient Evaluation/Re-Eval M1 PT/OT-IP Prior Functional Status Start: 11/15/19 08:19 Freq: NEEDED Status: Active Protocol: Document 11/15/19 12:00 AW (Rec: 11/15/19 12:37 AW [id number]) Medical Review Prior Functional Status Medical History Reviewed Yes Diet/Fluid Consistency Regular Communication Able to make needs known, hard of hearing Mobility and Gait Pt states he uses a SPC 100% of the time and is limited to household and short distance ambulation due to chronic pain Activities of Daily Living and IADL's Pt needs helps for lower body dressing, to get in and out of the shower, and to wash himself in the shower. He states he is able to use the toilet independently, but his reports that his hygiene has been poor which has contributed to his pressure ulcers. Prior Functional Level (Other details) Pt's handles medication management and occasionally assists with transfers. Social History Household Members spouse Living Arrangements House Number of Floors (Floors) Two Floors Number of Stairs To Enter/Railing? 6 KATELYN with L rail ascending. 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 Home Environment Standard Height Toilet,Tub/ Shower Doors Home Equipment Front Wheel Walker,Straight Cane,Shower Seat without Backrest,Long Handled Shoe Horn,Instructional Support Technician,Lift Recliner, Grab Bars In Shower Employment Status Retired Additional Social History Comment Pt lives with his spouse, Melissa, who provides assist as listed above. His daughter and son-in-law live next door and check on the pt frequently. M2 PT-IP Current Condition Start: 11/15/19 08:19 Freq: NEEDED Status: Active Protocol: Document 11/15/19 12:00 AW (Rec: 11/15/19 12:37 AW [id number]) Physical Therapy Current Condition Current Condition Evaluation Date 11/15/19 Treatment Diagnosis sacral PI, chronic LBP, impaired mobility Onset Date 11/14/19 Precautions Other Precautions supratherapeutic INR (5.2) and PT (62.3), avoid sacral shear Weight Bearing Status Weight Bearing Status Full Weight Bearing M3 PT-IP Subjective Start: 11/15/19 08:19 Freq: NEEDED Status: Active Protocol: Document 11/15/19 12:00 AW (Rec: 11/15/19 12:37 AW [id number]) Subjective Physical Therapy Visit Type Type Initial Evaluation Visit Start Time 10:52 Visit Stop Time 11:39 Total Visit Minutes 47 Notes Pt's spouse, Melissa, was present throughout evaluation and contributed to history. Number of DIRECTOR OF SCIENTIFIC RESEARCH Visits 0 Physical Therapy Visit Comments Patient Comments I just can't move without pain. Patient Goals Pt states he hopes to avoid rehab. Therapy Pain Assessment Pain When Pain Assessed At Rest Pain Present Pain Present Pain Reported Location With Movement Scale Used not quantified Pain Behaviors Calling Out,Facial Grimacing, Guarding,Moaning,Wincing Pain Management Techniques Re-positioning M4 PT-IP Mobility and Gait Start: 11/15/19 08:19 Freq: NEEDED Status: Active Protocol: Document 11/15/19 12:00 AW (Rec: 11/15/19 12:37 AW [id number]) PT-Bed Mobility Assessment Rolling Type of Rolling Roll to Right,Roll to Left Level of Assist Maximal Assistance,2 Person Assistance PT-Transfer Assessment Comments Mobility Comments Pt firmly resisted all attempts at mobility. He was able to weakly abduct his right leg toward the edge of the bed. When PT attempted to assist with sliding the leg, pt called out with pain and refused further mobility. PT spent considerable time educating pt on pressure injury and the aggravating effects of immobility, but the pt continued to refuse mobility and actively resisted all attempts to reposition him due to reports increased pain with movement. Nursing was called in to assist with repositioning after multiple unsuccessful attempts to roll to either side for offloading the sacrum. Pt rolled to his left with bed tilted and with max A x 2; nursing was able to place pillows under his right side. Pt was left in the room with call light in reach and family at bedside providing encouragement. Gait Assessment Comments Gait Comments Unable Stair Climbing Assessment Comments Stair Climbing Comments Unable PT-Balance Assessment Comments Other Balance Tests/Deviations/Treatment Unable to assess. Pt's : states prior CVA resulted in poor balance. M5 PT-IP Objective Assessments Start: 11/15/19 08:19 Freq: NEEDED Status: Active Protocol: Document 11/15/19 12:00 AW (Rec: 11/15/19 12:37 AW [id number]) Orientation Orientation/Cognition Level of Alertness Confusional State Orientation Name,Day of Week,Place, Situation Language Function Ability No Deficits Noted,Hard of Hearing Safety Awareness Decreased Safety Awareness Comments Pt has poor insight into his health problems and the exacerbation of his pressure injuries. Gross Range of Motion Lower Extremity ROM Assessment Bilaterally Impaired Strength Lower Extremity Strength Assessment Bilaterally Impaired Hip 3+/5 Comments Strength Comments Full MMT not undertaken due to supratherapeutic INR Coordination Assessment Gross Coordination Gross Coordination Impaired Assessment Finger to Nose Test Minimal Impairment Pronation/Supination Test Normal Performance Coordination Comments Pt with signs of dysmetria on finger to nose testing - missed targets ~3 cm bilaterally M6 PT-IP Treatment Start: 11/15/19 08:19 Freq: NEEDED Status: Active Protocol: Document 11/15/19 12:00 AW (Rec: 11/15/19 12:37 AW [id number]) Physical Therapy Treatment Education Education Provided Precautions,Safety Other Treatments Other Treatment Performed PT spent considerable time educating the pt on the aggravating effects of immobility on his pressure injuries. M7 PT-IP Assessment and Plan Start: 11/15/19 08:19 Freq: NEEDED Status: Active Protocol: Document 11/15/19 12:00 AW (Rec: 11/15/19 12:37 AW [id number]) PT Summary Assessment and Plan Potential Rehabilitation Potential Fair Status of Condition at Evaluation Evolving Summary Impairments Pain,ROM,Strength,Balance, Coordination,Cognition,Bed Mobility,Activity Tolerance Assessment Summary Isaac is a 79 yo man seen for PT evaluation after being admitted with acute on chronic low back pain and likely stage 1 sacral pressure injury . He has a history of CVA with resultant deficits in peripheral vision and balance. At baseline, he required assist with dressing and bathing. He states he was toileting indepdendently, but poor hygiene likely increased risk of pressure injury. He states he was modified independent with all mobility using a SPC but was limited to household and very short community distances due to pain. On evaluation, pt is extremely resistant to all mobility and requires max A x 2 and use of bed tilt feature in order to roll for repositioning and offloading of his sacrum. He has poor insight into his condition and the aggravating effects of immobility. He admits to spending a lot of time on his back, either in bed or in his lift recliner. He will require SNF rehab before he can safely return home. Family may also need to consider long- term care due to increasing burden of care. Goals Bed Mobility Goal Contact Guard Assistance Transfer Goal Contact Guard Assistance,Cane, Front Wheeled Walker Gait Goal Contact Guard Assistance,Cane, Front Wheel Walker Gait Distance 150 feet Other Goals - up/down 6 steps with left rail ascending SBA Days to Meet Goals 10 Frequency of Treatment Frequency Of Treatment Once a Day Treatment Plan Physical Therapy Treatment Plan Bed Mobility Training,Transfer Training,Gait Training, Therapeutic Exercise,Balance Retraining,Discharge Planning, Hot or Cold Pack,Neuromuscular Re-ed,Coordination Retraining ,Manual Therapy Other Recommendations and Next Treatment bed mobility, transfer to Focus chair Recommendations To Nursing Amount of Assist Needed Mechanical Lift Discharge Recommendations PT Discharge Recommendations SNF Rehab,LTAC Equipment Needed for Home Before tub transfer bench and raised Discharge toilet seat if going home Transportation Needs at Discharge Private Vehicle,Wheelchair/ Cabulance
--- NOTE | 2019-11-15 15:15 | CM.DANOTE ---
DCP/Assessment: Reviewed chart. Patient is a 79yr old male admitted [facility] with abdominal pain. PCP is Dr. Vickers. Primary payor is 1)Medicare 2)[employer] [place]. Met with patient and spouse/Melissa at bedside explained CM/SW role. Patient sleepy at time of visit. Spouse reports that she has had more difficulty caring for patient at home, specifically as it relates to his wounds on his sacrum. Spouse reports that patient primarily alert and oriented but does have episodes of forgetfulness, which she associates with age. Patient and spouse live in [place]. Patient does not drive due to a CVA x3yrs ago. Spouse definitely feels like they will have d/c planning needs as d/c approaches. Therapy evaluation pending. Spouse provided with contracted Medicare list of home health agencies and SNF's. Spouse hopes to get more information to next steps after she speaks with rounds provider tomorrow which she hopes to be patient's PCP/Dr. Vickers. P: CM team to follow closely. Anticipate SNF vs. home with HH when stable. Will touch base with patient/spouse again tomorrow. KRISTY Hendrix Discharge Planning/Care Management Advanced directive, confirm from FAMILY Start: 11/14/19 19:57 Freq: Q24H Status: Active Protocol: Document 11/14/19 19:57 EM (Rec: 11/14/19 20:20 EM [id number]) Advance Directive, confirm on record Time 20:20 Person contacted Melissa Irizarry received No CM Discharge Assessment Start: 11/15/19 14:44 Freq: Status: Active Protocol: Document 11/15/19 14:44 KJS (Rec: 11/15/19 15:15 KJS [id number]) Discharge Planning Assessment Assigned Sales Professional Bilingual KRISTY Hendrix Contact Information Melissa Arciniega (spouse) Advance Directives? Yes History Provided By Family Member,Medical Record Prior Living Arrangements House Household Members spouse Type of transporation used prior to Relies on Others admit Comment Stopped driving approximately 3yrs ago after CVA. Independent with ADL's Yes: Prefers cane at baseline Is patient alert and oriented? Yes Caregiver for Another No DME Already Rented / Owned FWW / Walker,Cane Patient/Family Preference [facility] Facility Additional Comment SNF and HH list provided to spouse for review. Whiteboard Updated in Patient Room with Yes name and ext. # of Sales Professional Bilingual Review Status In Process Next Review Type Continued Stay Review
[2019-11-15 15:49] VITALS: BP 129/61; PULSE 47; RESP 20; TEMP 36.4; O2SAT 95
--- NOTE | 2019-11-15 16:09 | PC.NURSE ---
Assess- Patient is alert but confused x1. He does have multiple skin issues... Redness to buttocks with skin tear and blistered area. Long catheter applied and pt had a good amount of urine output this shift. He has a hard time with turning side to side when being changed as he is incontinent of stool. He feels as though he is going to fall out of the bed. He is appropriate and will let us care for him, just apprehensive to do it. Did not work well with physical therapy today. Ate bites at breakfast and better at dinner. Patient does better if you let him go at his own pace and let him know what your doing.
[2019-11-15 19:39] VITALS: BP 140/60; PULSE 47; RESP 20; TEMP 36.5; O2SAT 98
[2019-11-15 19:41] VITALS: PULSE 48; O2SAT 95
[2019-11-15] MEDS: ROSUVASTATIN 10 MG TABLET 40 MG PO (20:03)
[2019-11-16] VITALS (12 sets, daily range): BP systolic 118–143; BP diastolic 55–74; PULSE 40–52; RESP 16–28; TEMP 36.2–36.9; O2SAT 92–98
--- NOTE | 2019-11-16 02:32 | PC.NURSE ---
Addendum entered by Wendy Murillo R.N. 11/16/19 06:52: Pt denies all pain overnight, denies palpitations. Long patent, draining clear yellow UOP 325 cc out overnight. CPOX o2 stable at 93% on 3L NC.Pt needs ECHO this AM. Taking strict I&O due to est GFR of 15.9. Melissa requested by previous RN on shannan to bring in Advance Directives. Original Note: Spoke with Dr. Tom covering for Dr. Vickers. Reported Pt in AFib with occ PVCs, HR ranging from 38-48 since 0000. BP range 118-125/50-70's. MAP 86. Pt asymptomatic while at rest in bed. Order given to titrate o2. Requested provider write hold parameters for beta blockers and call parameters for heart rate.
[2019-11-16 05:59] LABS: Add Manual Diff / Slide Review NO; Basophils Absolute Auto 0 /uL (0-100); Basophils Percent Auto 0.5 % (0-2); Eosinophils Absolute Auto 100 /uL (0-450); Eosinophils Percent Auto 0.9 % (2-4); Hematocrit 35.6 % (41-53); Hemoglobin 11.9 g/dL (13.5-17.5); Lymphocytes Absolute Auto 400 /uL (1100-4500); Lymphocytes Percent Auto 4.6 % (25-40); Mean Corpuscular HGB Conc 33.4 % (30-36); Mean Corpuscular Hemoglobin 31.5 PG (26-34); Mean Corpuscular Volume 94.3 fL (80-100); Monocytes Absolute Auto 700 /uL (0-900); Monocytes Percent Auto 9.1 % (3-14); Neutrophils Absolute Auto 6800 /uL (1500-7000); Neutrophils Percent Auto 84.9 % (50-75); Platelet Count 114 X10^3/uL (150-400); Red Blood Cell Count 3.78 X10^6/uL (4.5-5.9); Red Cell Distribution Width 15.7 % (11.6-14.8); White Blood Cell Count 8.1 X10^3/uL (4.5-11.0)
[2019-11-16 06:10] LABS: Prothrombin Time 66.7 SECONDS (10.1-12.7)
[2019-11-16 06:12] LABS: BUN Creatinine Ratio 22.1 (6-22); Blood Urea Nitrogen 86 mg/dL (9-20); Calcium 8.3 mg/dL (8.4-10.2); Carbon Dioxide 20 mmol/L (22-32); Chloride 104 mmol/L (98-107); Glucose 110 mg/dL (80-110); HEMOLYSIS < 15 (0-50); Magnesium 2.5 mg/dL (1.6-2.3); Potassium 3.6 mmol/L (3.4-5.1); Sodium 137 mmol/L (137-145)
[2019-11-16 06:13] LABS: INR 5.6 (0.9-1.3)
--- NOTE | 2019-11-16 06:28 | PC.NURSE ---
Dr Vickers/Dr Tom answering service called to report critical Pt 66.7 IONR 5.6 await return call.
--- NOTE | 2019-11-16 06:31 | PC.NURSE ---
Dr. Tom returned call. Reported PT of 66.7 INR of 6.7. No orders given. Pt stable. No signs of bleeding. Await providers for rounds this AM.
[2019-11-16] MEDS: PHYTONADIONE (VIT K1) 5 MG TABLET 2.5 MG PO (10:29)
[2019-11-16] MEDS: CEFTRIAXONE 1 GM/50 ML FROZ.PIGGY IV ×2 (10:29→22:10)
[2019-11-16] MEDS: TAMSULOSIN 0.4 MG CAPSULE PO (10:29)
[2019-11-16] MEDS: ACETAMINOPHEN 325 MG TABLET 650 MG PO (10:30)
[2019-11-16] MEDS: FUROSEMIDE 40 MG/4 ML VIAL IV ×2 (11:41→21:55)
--- NOTE | 2019-11-16 12:53 | P.PN_ITS ---
Subjective Subjective Date Patient Seen: 11/16/19 Time Patient Seen: 12:53 Interval history: Patient seen at bedside with . Patient says he is doing well. He says his bottom hurts bad. Says he is fine if he just sits in [address] but if he moves it's excruciating. He does not want to get out of bed and move or walk with physical therapy. He is eating a little bit. Required some oxygen last night with some mild decreased pulse oximetry readings as well as some mild tachypnea. He had some loose stools today. Vital signs show he has a little bit bradycardic. Nursing evaluation of his backside shows skin breakdown with some blistering. No alyson ulcer. He is asking me when he can go home. Patient can get out of bed. Can't move can't walk. His am not sure how she has been managing. Exam Vital Signs (past 8 hours): - 11/16/19 07:37 11/16/19 08:00 11/16/19 11:35 Temperature 97.6 F 98.4 F Pulse Rate 46 L 45 L Respiratory Rate 20 26 H Blood Pressure 141/58 H 139/58 L Pulse Oximetry 92 97 96 Oxygen Delivery Method Nasal Cannula Oxygen Flow Rate 3.5 Narrative Exam Narrative: Gen.: Alert oriented to place not date or time HEENT: Pupils equal round and reactive or mucosa is moist. Neck is supple Cardio: S1-S2 regular rate and rhythm mild systolic murmur present Respiratory: Normal respiratory effort. Mild decreased breath sounds at lung bases Abdomen: Soft nontender no rebound or guarding no liver spleen enlargement no appreciable hernias Extremities: Lower extremity some mild edema Neurologic: Grossly intact. Objective Labs Result Diagrams: 11/16/19 05:33 11/16/19 05:33 Labs: Laboratory Results - last 24 hr 11/16/19 11/16/19 11/16/19 05:33 05:33 05:33 WBC 8.1 RBC 3.78 L Hgb 11.9 L Hct 35.6 L MCV 94.3 MCH 31.5 MCHC 33.4 RDW 15.7 H Plt Count 114 L Neut % (Auto) 84.9 H Lymph % (Auto) 4.6 L [place] % (Auto) 9.1 Eos % (Auto) 0.9 L Baso % (Auto) 0.5 Neut # (Auto) 6800 Lymph # (Auto) 400 L [place] # (Auto) 700 Eos # (Auto) 100 Baso # (Auto) 0 PT 66.7 H INR 5.6 H* Sodium 137 Potassium 3.6 Chloride 104 Carbon Dioxide 20 L BUN 86 H Creatinine 3.90 H Estimated GFR 15.0 L BUN/Creatinine Ratio 22.1 H Glucose 110 Calcium 8.3 L Magnesium 2.5 H Assessment & Plan Assessment & Plan narrative: Cellulitis buttock area with skin breakdown due to ongoing pressure. Does not appear to be ulcer at this point. On admission to the hospital he had elevated white blood cell count in changes consistent with cellulitis. He was started on ceftriaxone and vancomycin. His white blood cell count is now better. He has remained afebrile. His initial lactic acid was normal. Will continue with local wound care treatment unloading the area of pressure. Continue with IV antibiotics. Patient is having lot of sore pain with just minimal movement. Acute on chronic renal failure. Patient has chronic renal failure stage 4. His creatinine is significantly higher. Possibly due to ongoing infection. Also po ssibly due to fluid overload status. We'll work on diet GERD recess what monitoring closely his electrolytes. Monitoring for decline of his kidney function. Acute congestive heart failure presumed systolic echocardiogram pending. Patient has elevated BNP signs of pulmonary congestion on lung exam and x-ray and enlarged heart. Think this is contributing to his kidney failure. He is currently on a beta-marina. We stopped his angiotensin receptor marina due to his significant kidney dysfunction. Will continue working on diuresis and hopefully he'll have improvement of his kidney function. Supratherapeutic INR. INR is 5.6. Warfarin on hold. Provide 2.5 mg of oral vitamin K today. Monitor closely for signs symptoms of bleeding. Atrial fibrillation patient has intermittent atrial fibrillation his heart rates a little bit low at this point. Will hold his beta-marina dose and make adjustments to his dose that he is getting. His INR is supratherapeutic at this time as warfarin will be held. Will monitor his heart rate. 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 Patient is has multiple stable concerning conditions including narrowing 0 of his aorta. Kidney function due to of peripheral vascular disease due to it atrophy of the kidney history of cerebrovascular disease and cerebral hemorrhage. All these are chronic and stable but contributed to his morbidity. Low back pain. With inability to ambulate due to discomfort. Continue working on physical therapy. Code status. Patient is a DNR. Reviewed his pulse form which refilled out a couple years ago. And reconfirmed with patient and today. Disposition plan. Patient meets inpatient criteria. Will be in the hospital for a number of other days getting is anticoagulation reversed his kidney function improved treatment of his systolic congestive heart failure and underlying cellulitis he will need to go to a alf after this.
[2019-11-16 13:16] LABS: Adenovirus F 40/41 Not Detected (Not Detect); Astrovirus Not Detected (Not Detect); Campylobacter Not Detected (Not Detect); Clostridium difficile toxin AB Not Detected (Not Detect); Cryptosporidium Not Detected (Not Detect); Cyclospora cayetanensis Not Detected (Not Detect); Entamoeba histolytica Not Detected (Not Detect); Enteroaggregative E.coli Not Detected (Not Detect); Enteropathogenic E.coli Not Detected (Not Detect); Enterotoxigenic E.coli It/st Not Detected (Not Detect); Giardia lamblia Not Detected (Not Detect); Norovirus GI/GII Not Detected (Not Detect); Plesiomonsa shigelloides Not Detected (Not Detect); Rotavirus A Not Detected (Not Detect); Salmonella Not Detected (Not Detect); Sapovirus Not Detected (Not Detect); Shiga-like toxin-prod E.coli Not Detected (Not Detect); Shigella/Enteroinvasive E.coli Not Detected (Not Detect); Vibrio Not Detected (Not Detect); Vibrio cholerae Not Detected (Not Detect); Yersinia enterocolitica Not Detected (Not Detect)
--- NOTE | 2019-11-16 14:58 | OT.IP.EVAL ---
Past Medical History (Last Reviewed 11/15/19 @ 09:03 by Johnny Tom MD) AAA (abdominal aortic aneurysm) (Chronic 1998) Acute ischemic colitis (Resolved 2001) Anemia of chronic renal failure, stage 3 (moderate) (Chronic) Anticoagulated on warfarin (Chronic 04/14/15) CAD (coronary artery disease) (Chronic 1996) Cerebrovascular disease (Chronic 02/16/15) CHF (congestive heart failure) (Chronic) Chicken pox (Resolved ~1943) Chronic obstructive pulmonary disease (Chronic 05/15/12) Chronic renal failure, stage 2 (mild) (Chronic) Coronary artery disease (Chronic 02/09/15) Degenerative disc disease (Chronic) Diabetes (Resolved) Essential hypertension (Chronic) Gout (Chronic 2002) Hyperlipidemia (Chronic 05/15/12) Lumbar spine pain (Chronic 2004) Measles (Resolved ~1950) Myocardial infarction (Resolved 1996) PAD (peripheral artery disease) (Chronic) Peripheral vascular disease (Chronic 02/09/15) 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) Systolic congestive heart failure (Chronic) Surgical History (Last Reviewed 11/15/19 @ 09:03 by Johnny Tom MD) Anesthesia (Resolved) Cataract (Resolved) Cataract (Resolved) H/O coronary artery bypass surgery (Resolved 2005) History of aortic valve replacement (Resolved 1998) History of bladder surgery (Resolved 2008) History of colon surgery (Resolved 2001) Surgically constructed arteriovenous graft (Resolved 2000) Surgically constructed arteriovenous graft (Resolved 2008) Occupational Therapy Inpatient Evaluation/Re-Eval M1 PT/OT-IP Prior Functional Status Start: 11/16/19 16:13 Freq: NEEDED Status: Active Protocol: Document 11/16/19 14:15 [facility] (Rec: 11/16/19 16:33 [facility] [id number]) Medical Review Prior Functional Status Medical History Reviewed Yes Diet/Fluid Consistency Regular Communication Able to make needs known, hard of hearing Mobility and Gait Pt states he uses a SPC 100% of the time and is limited to household and short distance ambulation due to chronic pain Activities of Daily Living and IADL's Pt needs helps for lower body dressing, to get in and out of the shower, and to wash himself in the shower. He states he is able to use the toilet independently, but his reports that his hygiene has been poor which has contributed to his pressure ulcers. Prior Functional Level (Other details) Pt's handles medication management and occasionally assists with transfers. Social History Household Members spouse Living Arrangements House Number of Floors (Floors) Two Floors Number of Stairs To Enter/Railing? 6 KATELYN with L rail ascending. 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 Home Environment Standard Height Toilet,Tub/ Shower Doors Home Equipment Front Wheel Walker,Straight Cane,Shower Seat without Backrest,Long Handled Shoe Horn,Orthotic Practitioner,Lift Recliner, Grab Bars In Shower Additional Social History Comment Pt lives with his spouse, Melissa, who provides assist as listed above. His daughter and son-in-law live next door and check on the pt frequently. M2 OT-IP Current Condition Start: 11/16/19 16:13 Freq: Status: Active Protocol: Document 11/16/19 14:15 [facility] (Rec: 11/16/19 16:33 [facility] [id number]) Occupational Therapy Current Condition Current Condition Evaluation Date 11/16/19 Treatment Diagnosis Presacral ulcer, decreased mobility, self -care, chronic renal failure Diagnosis Onset Date 11/14/19 Weight Bearing Status Weight Bearing Status Weight Bear as Tolerated M3 OT- IP Subjective and Pain Start: 11/16/19 16:13 Freq: Status: Active Protocol: Document 11/16/19 14:15 [facility] (Rec: 11/16/19 16:33 [facility] [id number]) OT- Subjective Occupational Therapy Visit Type Type Initial Evaluation Visit Start Time 14:15 Visit Stop Time 14:58 Total Visit Minutes 43 Notes Per physician not okay for therapy to continue to see pt PT INR trending up 09/15/20 5. 2 and 09/16/20 5.6. Also spoke to nursing and states okay to try to get pt up as well. Occupational Therapy Visit Comments Patient Comments Pt agreeable to try to get up. Pt confused and needing lots of redirections and step by step commands. Patient/Caregiver Goals Pt wanting to go home. OT Pain Assessment Pain When Pain Assessed During Mobility Pain Present Pain Present Unable to Respond FLACC Pain Scale Face Frequent/constant frown Legs Uneasy, restless, tense Activity Squirming,shifting Cry Moans/whimpers/complains M4 OT- IP ADL's Start: 11/16/19 16:13 Freq: Status: Active Protocol: Document 11/16/19 14:15 [facility] (Rec: 11/16/19 16:33 [facility] [id number]) OT [id number] Comments OT Self-Feeding Comments Not at meal time. OT ADL-Grooming Comments OT Grooming Comments Not performed. OT ADL-Oral Care Comments Oral Care Comments NOt performed. OT ADL-Dressing General Eval Lower Body Dressing Ability Total Assistance OT ADL-Toileting General Evaluation Toileting Ability Total Assistance Comments OT Toileting Comments Pt has mishra in and forgetful and stating needing to use the bathroom. OT ADL-Bathing Comments OT Bathing Comments NOt at this time. M5 OT- IP IADL's Start: 11/16/19 16:13 Freq: Status: Active Protocol: Document 11/16/19 14:15 [facility] (Rec: 11/16/19 16:33 [facility] [id number]) OT-Instrumental Activities of Daily Living Deficits IADL Deficits Identified Deficits Home Safety Awareness Awareness of Need for Assistance at Home Decreased Awareness Ability to Problem Solve Emergency Unable to Problem Solve Situations Home Safety Comments At this time pt has poor safety awareness and insight for needs and would be dependent for all IADl needs. M6 OT- IP Functional Cognition Start: 11/16/19 16:13 Freq: Status: Active Protocol: Document 11/16/19 14:15 [facility] (Rec: 11/16/19 16:33 [facility] [id number]) Cognitive Factors Limiting Selfcare Function Cognitive Ability Level of Alertness Confusional State Patient Orientation Name Attention Span Ability Unable to Focus,Unable to Sustain Attention Ability to Follow Commands Able to Follow One Step Commands with Increased Time, Able to Follow One Step Commands with Repetition Memory Description Immediate Impaired,Short Term Impaired,Working Impaired Safety Awareness Underestimates Need for Assistance Problem Solving Ability Unable to Identify Errors, Needs Assist to Identify Solutions Executive Function Ability Unable to Hold Focus,Unable to Switch Focus,Unable to Filter Distractions,Unable to Make Plans,Unable to Organize Plans ,Unable to Remember Details Cognitive Comments Cognitive Assessment Comments Pt perseveration on wanting to wear a brief, however nursing explained in addition to therapists input that a brief would aggravate his wounds and make for pericare hygiene more difficult. Pt also focused on using his cane to help get up from the bed and insisting that he has his cane to help. Pt needing step by step concrete commands and increased time to process as well. Pt poor insight to his needs and deficits at this time. OT- Vision and Hearing OT- Vision Assessment Vision Assessment Comments Pt hard of hearing. M7 OT- IP Mobility and Balance Start: 11/16/19 16:13 Freq: Status: Active Protocol: Document 11/16/19 14:15 [facility] (Rec: 11/16/19 16:33 [facility] [id number]) OT- Bed Mobility Assessment Rolling Type of Rolling Roll to Right Level of Assistance Maximum Assistance,2 Person Assistance,Bedrails Supine to Sit Supine to Sit Assist Maximum Assistance,2 Person Assistance,Head of Bed Elevated,Bedrails Sit to Supine Sit to Supine Assist Total Assistance,2 Person Assistance Scooting Scooting to Edge of Bed Total Assistance,2 Person Assistance OT-Transfer Assessment Comments Mobility Comments Pt able to to assist to move his right leg to the edge of the bed otherwise needing assist of green humphreys to help in addition to PT assist to move the legs to help sit to the edge of the bed. After assist from therapists with positioning, able to sit on his own from [place] to SBA. Trapeze pole placed and nursing aware so pt able to help nursing to reposition himself in the bed. OT- Gait Assessment Comments Gait Ability Comments Not at this time. OT- Balance Assessment Sitting Balance and Reactions Static Sitting Balance Ability Fair Dynamic Sitting Balance Ability Poor Comments Other Balance Tests/Deviations/Treatment Not able to stand at this time : . M8 OT- IP Objective Assessments Start: 11/16/19 16:13 Freq: Status: Active Protocol: Document 11/16/19 14:15 [facility] (Rec: 11/16/19 16:33 [facility] [id number]) OT Strength Comments Strength Comments At least 3+/5 throughout. To assess in more details tomorrow as pt having difficulty to follow directions. OT-Muscle Tone Assessment Muscle Tone WNL No M9 OT- IP Assessment and Plan Start: 11/16/19 16:13 Freq: Status: Active Protocol: Document 11/16/19 14:15 [facility] (Rec: 11/16/19 16:33 [facility] [id number]) OT Summary Assessment and Plan Potential Rehabilitation Potential Fair Analytic Complexity at Evaluation Moderate Summary OT Impairments Pain,Strength,Balance, Functional Cognition, Functional Mobility,Self- Feeding,Grooming,Dressing, Toileting,Bathing,Toilet Transfers,Shower Transfers, Activity Tolerance Progress Towards Goals Slow Progress due to Pain,Slow Progress due to Medical Issues,Slow Progress due to Activity Tolerance,Slow Progress due to Cognition Assessment Summary Pt MOD complexity due to confusion, pain, presacral ulcer, chronic renal failure and now just able to tolerate sitting to the edge of the bed MAX A X 2 and not able to attempt to stand at this time due to weakness and pain. Pt dependent for most ADl needs and will benefit from skilled rehab as far from his baseline and too great of care for to take care of him now. Goals Self-Feeding Goal Standby Assistance Grooming Goal Standby Assistance Dressing Goal Moderate Assistance Toileting Goal Moderate Assistance Bathing Goal Moderate Assistance Toilet Transfer Goal Minimal Assistance Shower Transfer Goal Minimal Assistance Patient/Caregiver Education Goal Caregiver Independent Assisting Patient Days to Meet Goals 15 Frequency of Treatment Frequency Of Treatment Once a Day Treatment Plan OT Treatment Plan ADL Training,Functional Cognition Training,Functional Mobility,Patient/Family Education,Discharge Planning Other Treatment Recommendations and Next Grooming SBA while seated in Treatment Focus the bed. Discharge Recommendations OT Discharge Recommendations SNF Rehab Home Equipment Needs Defer to SNF. Transportation Needs at Discharge Stretcher/Ambulance
--- NOTE | 2019-11-16 15:38 | PT.IIE ---
Surgical History (Last Reviewed 11/15/19 @ 09:03 by Johnny Tom MD) Anesthesia (Resolved) Cataract (Resolved) Cataract (Resolved) H/O coronary artery bypass surgery (Resolved 2005) History of aortic valve replacement (Resolved 1998) History of bladder surgery (Resolved 2008) History of colon surgery (Resolved 2001) Surgically constructed arteriovenous graft (Resolved 2000) Surgically constructed arteriovenous graft (Resolved 2008) Medical History (Last Reviewed 11/15/19 @ 09:03 by Johnny oTm MD) AAA (abdominal aortic aneurysm) (Chronic 1998) Acute ischemic colitis (Resolved 2001) Anemia of chronic renal failure, stage 3 (moderate) (Chronic) Anticoagulated on warfarin (Chronic 04/14/15) CAD (coronary artery disease) (Chronic 1996) Cerebrovascular disease (Chronic 02/16/15) CHF (congestive heart failure) (Chronic) Chicken pox (Resolved ~1943) Chronic obstructive pulmonary disease (Chronic 05/15/12) Chronic renal failure, stage 2 (mild) (Chronic) Coronary artery disease (Chronic 02/09/15) Degenerative disc disease (Chronic) Diabetes (Resolved) Essential hypertension (Chronic) Gout (Chronic 2002) Hyperlipidemia (Chronic 05/15/12) Lumbar spine pain (Chronic 2004) Measles (Resolved ~1950) Myocardial infarction (Resolved 1996) PAD (peripheral artery disease) (Chronic) Peripheral vascular disease (Chronic 02/09/15) 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) Systolic congestive heart failure (Chronic) Physical Therapy Inpatient Evaluation/Re-Eval M1 PT/OT-IP Prior Functional Status Start: 11/15/19 08:19 Freq: NEEDED Status: Active Protocol: Document 11/15/19 12:00 [facility] (Rec: 11/15/19 12:37 AW [id number]) Medical Review Prior Functional Status Medical History Reviewed Yes Diet/Fluid Consistency Regular Communication Able to make needs known, hard of hearing Mobility and Gait Pt states he uses a SPC 100% of the time and is limited to household and short distance ambulation due to chronic pain Activities of Daily Living and IADL's Pt needs helps for lower body dressing, to get in and out of the shower, and to wash himself in the shower. He states he is able to use the toilet independently, but his reports that his hygiene has been poor which has contributed to his pressure ulcers. Prior Functional Level (Other details) Pt's handles medication management and occasionally assists with transfers. Social History Household Members spouse Living Arrangements House Number of Floors (Floors) Two Floors Number of Stairs To Enter/Railing? 6 KATELYN with L rail ascending. 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 Home Environment Standard Height Toilet,Tub/ Shower Doors Home Equipment Front Wheel Walker,Straight Cane,Shower Seat without Backrest,Long Handled Shoe Horn,[employer] Packages Sealer,Lift Recliner, Grab Bars In Shower Employment Status Retired Additional Social History Comment Pt lives with his spouse, Melissa, who provides assist as listed above. His daughter and son-in-law live next door and check on the pt frequently. M2 PT-IP Current Condition Start: 11/15/19 08:19 Freq: NEEDED Status: Active Protocol: Document 11/15/19 12:00 [facility] (Rec: 11/15/19 12:37 AW [id number]) Physical Therapy Current Condition Current Condition Evaluation Date 11/15/19 Treatment Diagnosis sacral PI, chronic LBP, impaired mobility Onset Date 11/14/19 Precautions Other Precautions supratherapeutic INR (5.2) and PT (62.3), avoid sacral shear Weight Bearing Status Weight Bearing Status Full Weight Bearing M3 PT-IP Subjective Start: 11/15/19 08:19 Freq: NEEDED Status: Active Protocol: Document 11/16/19 15:10 AW (Rec: 11/16/19 15:38 AW [id number]) Subjective Physical Therapy Visit Type Type Treatment Note Visit Start Time 14:15 Visit Stop Time 14:58 Total Visit Minutes 43 Notes INR remains elevated, trending up 5.2, 5.6. Co-treat with OT Number of DOUGHNUT MACHINE OPERATOR HELPER Visits 0 Physical Therapy Visit Comments Patient Comments I'll give it a try. M4 PT-IP Mobility and Gait Start: 11/15/19 08:19 Freq: NEEDED Status: Active Protocol: Document 11/16/19 15:10 AW (Rec: 11/16/19 15:38 AW [id number]) PT-Bed Mobility Assessment Rolling Type of Rolling Roll to Right,Roll to Left Level of Assist Maximal Assistance,2 Person Assistance Supine to Sit Supine to Sit Maximum Assistance,2 Person Assistance,Head of Bed Elevated,Bedrails Sit to Supine Sit to Supine Total Assistance Scooting Scooting to Edge of Bed Maximum Assistance Scooting Up and Down in Bed Dependent PT-Transfer Assessment Comments Mobility Comments Pt willing to attempt sitting EOB. He was confused, stating Sure, I can. I've been doing this all morning on my own and walking with my cane even though he had not been out of bed. He also asked multiple times for briefs to wear in spite of nursing explaining that briefs would aggravate his wounds and make pericare difficult. Initially attempted to get pt's knees bent for log roll to his right, but pt resisted. Next, PT/OT raised the head of the bed and asked pt to move his legs toward the edge. He was weakly able to move both legs so that the right leg was dangling, but he resisted further progress. With PT in front and OT in back, pt was assisted to EOB with use of draw sheet to rotate hips. Pt helped minimally with use of bed cane in left hand and bed rail in right. He was then able to sit EOB with UE support for BP measurement which was initially SBP 90's and then 130's after 2 minutes sitting. Pt denied lightheadedness. Pt helped to scoot himself toward EOB but required max A with use of draw sheet to get his feet closer to the floor. With gait belt donned, pt repeatedly asked for his cane in spite of FWW in front of him. Pt was given his cane which he held in his right hand and bed cane in the left hand. He abandoned the cane after unsuccessful attempts to stand and then attempted to shift weight onto his feet while holding on to FWW but was unsuccessful. Pt was repositioned in the bed with max A x 2. He then rolled to his right side max A x 2 for placement of pillows under his left to offload his sacrum. PT/OT then placed a trapeze in the room for pt to be able to perform pressure relief and to improve his ability to move in the bed. Pt was left with call light and table within reach. Gait Assessment Comments Gait Comments Unable Stair Climbing Assessment Comments Stair Climbing Comments Unable PT-Balance Assessment Sitting Balance and Reactions Static Sitting Balance Ability Fair M5 PT-IP Objective Assessments Start: 11/15/19 08:19 Freq: NEEDED Status: Active Protocol: Document 11/15/19 12:00 AW (Rec: 11/15/19 12:37 AW [id number]) Orientation Orientation/Cognition Level of Alertness Confusional State Orientation Name,Day of Week,Place, Situation Language Function Ability No Deficits Noted,Hard of Hearing Safety Awareness Decreased Safety Awareness Comments Pt has poor insight into his health problems and the exacerbation of his pressure injuries. Gross Range of Motion Lower Extremity ROM Assessment Bilaterally Impaired Strength Lower Extremity Strength Assessment Bilaterally Impaired Hip 3+/5 Comments Strength Comments Full MMT not undertaken due to supratherapeutic INR Coordination Assessment Gross Coordination Gross Coordination Impaired Assessment Finger to Nose Test Minimal Impairment Pronation/Supination Test Normal Performance Coordination Comments Pt with signs of dysmetria on finger to nose testing - missed targets ~3 cm bilaterally M6 PT-IP Treatment Start: 11/15/19 08:19 Freq: NEEDED Status: Active Protocol: Document 11/16/19 15:10 AW (Rec: 11/16/19 15:38 AW [id number]) Physical Therapy Treatment Education Education Provided Safety Other Treatments Other Treatment Performed Continued to educate pt about need for mobility in order to promote wound healing. M7 PT-IP Assessment and Plan Start: 11/15/19 08:19 Freq: NEEDED Status: Active Protocol: Document 11/16/19 15:10 AW (Rec: 11/16/19 15:38 AW [id number]) PT Summary Assessment and Plan Potential Rehabilitation Potential Fair Status of Condition at Evaluation Evolving Summary Impairments Pain,ROM,Strength,Balance, Coordination,Cognition,Bed Mobility,Activity Tolerance Progress Towards Goals Slow Progress due to Pain Assessment Summary Isaac was able to sit EOB today with max A x 2. He was confused and required frequent reorientation to task as he perseverated on needing briefs and on using his cane. He was unable or unwilling to shift his weight onto his feet for attempt to stand. Will continue to work with this patient in conjunction with OT to progress mobility as tolerated. Will also continue to be mindful of lab values as supratherapeutic INR increased today. Goals Bed Mobility Goal Contact Guard Assistance Transfer Goal Contact Guard Assistance,Cane, Front Wheeled Walker Gait Goal Contact Guard Assistance,Cane, Front Wheel Walker Gait Distance 150 feet Other Goals - up/down 6 steps with left rail ascending SBA Days to Meet Goals 10 Frequency of Treatment Frequency Of Treatment Once a Day Treatment Plan Physical Therapy Treatment Plan Bed Mobility Training,Transfer Training,Gait Training, Therapeutic Exercise,Balance Retraining,Discharge Planning, Hot or Cold Pack,Neuromuscular Re-ed,Coordination Retraining ,Manual Therapy Other Recommendations and Next Treatment check coag lab values; bed Focus mobility, transfer to chair Recommendations To Nursing Amount of Assist Needed PT/OT Assist Only,Mechanical Lift Discharge Recommendations PT Discharge Recommendations SNF Rehab,LTAC Equipment Needed for Home Before tub transfer bench and raised Discharge toilet seat if going home Transportation Needs at Discharge Private Vehicle,Stretcher/ Ambulance
--- NOTE | 2019-11-16 17:54 | PC.NURSE ---
JAMIE Shift. pt AO, Long draining to gravity. Right AC PIV saline locked. pt refusing CPAP. SCD's on. O2 mid 90's with 2.5L. Denying pain. Family in room. Tele AFib radha. Held coreg this morning, HR fluctuating from high 30's to mid 40's. Asymptomatic. Awaiting parameters from Dr. Vickers on DC'chad tele and when to intervene. pt DNR.
[2019-11-16] MEDS: ROSUVASTATIN 10 MG TABLET 40 MG PO (21:55)
[2019-11-16] MEDS: VANCOMYCIN 1,000 MG/200 ML PIGGYBACK 150 MG IV (22:51)
[2019-11-17] VITALS (8 sets, daily range): BP systolic 137–168; BP diastolic 46–73; PULSE 42–53; RESP 12–20; TEMP 36.2–37.2; O2SAT 93–96
--- NOTE | 2019-11-17 02:32 | PC.NURSE ---
Shift note: Received pt from evening shift. Patient is AxO to self and place but not situation and date, I haven't written any checks lately, and reports he's in the hospital for bowel problems. Speech goes from clear to garbled when speaking but can make needs known. Pleasant affect except when being turned or tactile stimulation from staff, then becomes agitated but quickly calms when settled. Heart rate continues to vary from as low as 34 BPM and as high as 60 BPM, continues to be in AFIB, asymptomatic, patient denies chest pain, SOB, or dizziness. Patient to remain on tele as HR has not remained steady on this shift. Patient wearing 2L O2 by NC, will occasionally desaturate down into the 70's but quickly rebounds, pulse ox is currently on 2nd toe of left foot and has been secured with coban. Patient unable to use call light, will make needs known when staff is in the room. Call light is in reach, education given and reinforced. Patient denies falls with this RN, is a high fall risk, bed alarm on and functioning, in view room. [ End ]
--- NOTE | 2019-11-17 06:54 | PM.PN.1 ---
Subjective Subjective Date Patient Seen: 11/17/19 Time Patient Seen: 06:54 Interval history: Patient seen and evaluated. is at the bedside. Guess he had a pretty good night last night. Still a little bit of bradycardia due to his beta-marina most likely. His laboratory tests are still pending at the time of this dictation. Still not really willing able to move mainly due to pain. Has quite a lot of discomfort in his buttock area and low back area. Prohibiting him from moving. Respiratory status has been stable. Still requiring oxygen which he has not required before. Had some diarrhea yesterday. Stool results are normal. Exam Vital Signs (past 8 hours): - 11/17/19 00:15 Temperature 97.2 F L Pulse Rate 49 L Respiratory Rate 16 Blood Pressure 152/71 H Pulse Oximetry 96 Fraction of Inspired Oxygen 30 Oxygen Delivery Method Nasal Cannula Oxygen Flow Rate 2 Narrative Exam Narrative: Gen.: Patient resting comfortably at the time of this examination HEENT: Pupils equal round and reactive or mucosa is moist neck is supple. Cardio: S1-S2 bradycardia. Respiratory: Lungs are clear to auscultation no wheezes or crackles normal respiratory effort. Abdomen: Soft nontender no rebound or guarding no liver spleen enlargement no appreciable hernias Extremities: Generalized weakness mild edema Neurologic: Grossly intact. Objective Labs Result Diagrams: 11/16/19 05:33 11/16/19 05:33 Labs: Laboratory Results - last 24 hr 11/16/19 12:01 Stl C. cayetanensis PCR Not detected Stool Rotavirus (PCR) Not detected Stool Adenovirus (PCR) Not detected Stool Astrovirus (PCR) Not detected Stool Cryptosporidium PCR Not detected Stl E.coli Shiga Tox PCR Not detected St Sh/Enteroin Ecoli PCR Not detected Stool E coli O157 PCR Not Reportable Stl Enterotoxigenic E PCR Not detected Stool EPEC (PCR) Not detected Stl E. histolytica PCR Not detected Stool Giardia Lamblia PCR Not detected Stool Sapovirus (PCR) Not detected Stl P. shigelloides PCR Not detected St Y.enterocolitica PCR Not detected Stool Vibrio (PCR) Not detected Stl Vibrio cholerae PCR Not detected Stl Enteroaggr Ecoli PCR Not detected Stl Norovirus GI/GII PCR Not detected Campylobacter (PCR) Not detected C. difficile Tox (PCR) Not detected Salmonella (PCR) Not detected Assessment & Plan Assessment & Plan narrative: Cellulitis buttock area with skin breakdown due to ongoing pressure. Does not appear to be ulcer at this point. Continue with local wound care. Continue with current antibiotics of ceftriaxone and vancomycin. Considering stopping vancomycin here tomorrow. After re-evaluation of the area if there is significant improvement. Acute on chronic renal failure. Patient has chronic renal failure stage 4. His creatinine is significantly higher. Possibly due to ongoing infection. Also possibly due to fluid overload due to underlying congestive heart failure. Recheck of kidney function today shows stabilization of his kidney function is no longer worsening. Although it is still quite bad. Will continue with a little bit of diuresis today as well with IV Lasix. Acute systolic congestive heart failure with exacerbation Patient has elevated BNP signs of pulmonary congestion on lung exam and x-ray and enlarged heart. This echocardiogram shows a decreased ejection fraction with global hypokinesis. Continue with diuresis with Lasix today. Continue with beta-marina although some dose adjustments are happening because of some mild bradycardia. Because of significant kidney declined he is not on an Eder or an Arb. Supratherapeutic INR. INR much improved today after oral vitamin K continue to monitor PT and INR hold his warfarin until further improvement. Atrial fibrillation patient has intermittent atrial fibrillation previous history of rapid ventricular response. He is bradycardic now. Repeat EKG today beta-blockers on hold until we have improvement of his pulse. 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 Kidney function due to of peripheral vascular disease due to it atrophy of the kidney history of cerebrovascular disease and cerebral hemorrhage. All these are chronic and stable but contributed to his morbidity. Continue with current statin dosing. Low back pain. With inability to ambulate due to discomfort. Having hard time working with physical therapy due to the discomfort and pain. Will continue to monitor. Code status. Patient is a DNR. Reviewed his pulse form which refilled out a couple years ago. And reconfirmed with patient and today. Disposition plan. Continue with diuresis today. Kidney function is stabilized not worsening. Think he still fluid overloaded so we will continue with diuresis with Lasix. Reviewed echocardiogram. Obtain chest x-ray tomorrow EKG today. Decrease his dose of beta-marina warfarin still on hold. He will need long-term nursing care. They are hoping to go to [facility]. Continue to work with discharge planners. Anticipate discharge Saturday.
[2019-11-17 07:42] LABS: INR 2.6 (0.9-1.3)
[2019-11-17 07:43] LABS: Add Manual Diff / Slide Review NO; Basophils Absolute Auto 0 /uL (0-100); Basophils Percent Auto 0.6 % (0-2); Eosinophils Absolute Auto 100 /uL (0-450); Hemoglobin 11.5 g/dL (13.5-17.5); Lymphocytes Absolute Auto 300 /uL (1100-4500); Lymphocytes Percent Auto 5.5 % (25-40); Mean Corpuscular HGB Conc 32.8 % (30-36); Mean Corpuscular Hemoglobin 31.2 PG (26-34); Mean Corpuscular Volume 95.1 fL (80-100); Monocytes Absolute Auto 500 /uL (0-900); Monocytes Percent Auto 8.6 % (3-14); Neutrophils Absolute Auto 5300 /uL (1500-7000); Neutrophils Percent Auto 83.3 % (50-75); Platelet Count 116 X10^3/uL (150-400); Red Blood Cell Count 3.68 X10^6/uL (4.5-5.9); Red Cell Distribution Width 15.4 % (11.6-14.8); White Blood Cell Count 6.3 X10^3/uL (4.5-11.0)
[2019-11-17 07:50] LABS: BUN Creatinine Ratio 22.3 (6-22); Blood Urea Nitrogen 87 mg/dL (9-20); Calcium 8.5 mg/dL (8.4-10.2); Carbon Dioxide 20 mmol/L (22-32); Chloride 102 mmol/L (98-107); Glucose 100 mg/dL (80-110); HEMOLYSIS < 15 (0-50); Magnesium 2.4 mg/dL (1.6-2.3); Potassium 3.1 mmol/L (3.4-5.1); Sodium 136 mmol/L (137-145)
[2019-11-17] MEDS: CEFTRIAXONE 1 GM/50 ML FROZ.PIGGY IV ×2 (09:18→20:28)
--- NOTE | 2019-11-17 09:50 | PT.IPTN ---
Current Diagnoses Cellulitis of buttock (11/14/19) Physical Therapy Treatment Note M2 PT-IP Current Condition Start: 11/15/19 08:19 Freq: NEEDED Status: Active Protocol: Document 11/15/19 12:00 AW (Rec: 11/15/19 12:37 AW [id number]) Physical Therapy Current Condition Current Condition Evaluation Date 11/15/19 Treatment Diagnosis sacral PI, chronic LBP, impaired mobility Onset Date 11/14/19 Precautions Other Precautions supratherapeutic INR (5.2) and PT (62.3), avoid sacral shear Weight Bearing Status Weight Bearing Status Full Weight Bearing M3 PT-IP Subjective Start: 11/15/19 08:19 Freq: NEEDED Status: Active Protocol: Document 11/17/19 12:05 [facility] (Rec: 11/17/19 12:48 [facility] [id number]) Subjective Physical Therapy Visit Type Type Treatment Note Visit Start Time 09:15 Visit Stop Time 09:50 Total Visit Minutes 35 Physical Therapy Visit Comments Patient Comments Pt notes he has to move slow to get up Therapy Pain Assessment Pain When Pain Assessed During Mobility Pain Present Pain Present Pain Reported Location With Movement Pain Behaviors Calling Out,[place] [facility] Techniques Re-positioning M4 PT-IP Mobility and Gait Start: 11/15/19 08:19 Freq: NEEDED Status: Active Protocol: Document 11/17/19 12:05 [facility] (Rec: 11/17/19 12:48 [facility] [id number]) PT-Bed Mobility Assessment Rolling Type of Rolling Log Rolling,Roll to Left Level of Assist Maximal Assistance,2 Person Assistance Supine to Sit Supine to Sit Maximum Assistance,2 Person Assistance,Head of Bed Elevated,Bedrails Sit to Supine Sit to Supine Maximum Assistance Scooting Scooting to Edge of Bed Maximum Assistance Scooting Up and Down in Bed Moderate Assistance PT-Transfer Assessment Sit to and From Stand Sit to and from Stand Maximum Assistance,2 Person Assistance Equipment Transfer Assistive Device Gait Belt,Front Wheeled Walker Comments Mobility Comments supine to sit completed with pt with max A x2. He would say he was trying but would be pushing the opposite direction of instructions. He was able to stand with max A x2 to get to standing with almost fully straight knees then max A x1 with FWW and guarding of knees . Gait Assessment Comments Gait Comments unable to stand enough to amb at this time M5 PT-IP Objective Assessments Start: 11/15/19 08:19 Freq: NEEDED Status: Active Protocol: Document 11/15/19 12:00 AW (Rec: 11/15/19 12:37 AW [id number]) Orientation Orientation/Cognition Level of Alertness Confusional State Orientation Name,Day of Week,Place, Situation Language Function Ability No Deficits Noted,Hard of Hearing Safety Awareness Decreased Safety Awareness Comments Pt has poor insight into his health problems and the exacerbation of his pressure injuries. Gross Range of Motion Lower Extremity ROM Assessment Bilaterally Impaired Strength Lower Extremity Strength Assessment Bilaterally Impaired Hip 3+/5 Comments Strength Comments Full MMT not undertaken due to supratherapeutic INR Coordination Assessment Gross Coordination Gross Coordination Impaired Assessment Finger to Nose Test Minimal Impairment Pronation/Supination Test Normal Performance Coordination Comments Pt with signs of dysmetria on finger to nose testing - missed targets ~3 cm bilaterally M6 PT-IP Treatment Start: 11/15/19 08:19 Freq: NEEDED Status: Active Protocol: Document 11/17/19 12:05 [facility] (Rec: 11/17/19 12:48 [facility] [id number]) Physical Therapy Treatment Education Education Provided Safety M7 PT-IP Assessment and Plan Start: 11/15/19 08:19 Freq: NEEDED Status: Active Protocol: Document 11/17/19 12:05 [facility] (Rec: 11/17/19 12:48 [facility] [id number]) PT Summary Assessment and Plan Summary Progress Towards Goals Slow Progress due to Medical Issues Assessment Summary Pt did better today overall with mobility,b ut was reluctant to mobilize d/t pain . He is very slow moving but was able to scoot himself to the side in bed and use trapeze to help scooting up in bed today. He was able to stand today almost to fully standing position today but required max A and had knees slightly bend. He will require rehab prior to returning home Goals Bed Mobility Goal Contact Guard Assistance Transfer Goal Contact Guard Assistance,Cane, Front Wheeled Walker Gait Goal Contact Guard Assistance,Cane, Front Wheel Walker Gait Distance 150 feet Other Goals - up/down 6 steps with left rail ascending SBA Days to Meet Goals 10 Frequency of Treatment Frequency Of Treatment Once a Day Treatment Plan Physical Therapy Treatment Plan Bed Mobility Training,Transfer Training,Gait Training, Therapeutic Exercise,Balance Retraining,Discharge Planning, Hot or Cold Pack,Neuromuscular Re-ed,Coordination Retraining ,Manual Therapy Other Recommendations and Next Treatment bed mobility, transfer to Focus chair Recommendations To Nursing Amount of Assist Needed PT/OT Assist Only,Mechanical Lift Discharge Recommendations PT Discharge Recommendations SNF Rehab,LTAC Equipment Needed for Home Before tub transfer bench and raised Discharge toilet seat if going home Transportation Needs at Discharge Private Vehicle,Stretcher/ Ambulance
[2019-11-17] MEDS: TAMSULOSIN 0.4 MG CAPSULE PO (10:31)
[2019-11-17] MEDS: FUROSEMIDE 40 MG/4 ML VIAL IV ×2 (10:31→20:29)
--- NOTE | 2019-11-17 10:55 | PC.NURSE ---
Patient alert, oriented, c/o pain to bottom with movement. Max assist with PT to have patient stand at edge of bed. Pt bathed and two alleyvn gentle borders placed to top of buttocks.Patient repositioned to left side. Alarm on.
--- NOTE | 2019-11-17 12:16 | CM.DPC ---
Addendum entered by Odalis Rivera 11/17/19 13:49: Received notification that patient has been accepted at [facility] when medically stable. KJS Original Note: DCP/Continued: Reviewed chart. It is anticipated that patient will need SNF when medically stable. Met with patient and spouse/Melissa re:SNF choice. Patient on/off sleeping at time of visit. Spouse very agreeable to SNF but fearful that patient will not be happy about it. Currently, patient unable to safely return home with HH and spouse. Patient currently requiring max assist x2 and wound attention due to bed sores. Spouse reports that first SNF choice is [facility]. Spouse in agreement for [facility] to provide them with referral. Spouse plans to discuss further with patient and family when patient more awake. Spouse inquiring about an antidepressant for patient? Notified spouse that she would need to discuss with Dr. Vickers. Spouse feels that patient's lack of motivation possibly related to depression. P: Pending. [facility] evaluating for admit. Spouse aware that second SNF choice may be needed. PASRR needs to be completed. If antidepressant started may need hospital exempt PASRR signed. KRISTY Hendrix
[2019-11-17] MEDS: POTASSIUM CHLORIDE 20 MEQ/15 ML UDC 30 MEQ PO (16:35)
[2019-11-17] MEDS: ROSUVASTATIN 10 MG TABLET 40 MG PO (20:29)
--- NOTE | 2019-11-17 23:24 | PC.NURSE ---
A&OX3. denied pain. 2L 95%, cont pulse ox. scrotum edematous, elevated with pillow. q2turn. mishra patent. call light in reach. bed alarm active.
[2019-11-18] VITALS (13 sets, daily range): BP systolic 132–184; BP diastolic 65–82; PULSE 49–63; RESP 12–20; TEMP 36.3–37.2; O2SAT 92–100
[2019-11-18 06:20] LABS: Prothrombin Time 23.2 SECONDS (10.1-12.7)
[2019-11-18 06:26] LABS: BUN Creatinine Ratio 22.4 (6-22); Blood Urea Nitrogen 83 mg/dL (9-20); Calcium 8.5 mg/dL (8.4-10.2); Carbon Dioxide 23 mmol/L (22-32); Chloride 100 mmol/L (98-107); Estimated Glomerular Filt Rate 15.9 mL/min (>60); Glucose 144 mg/dL (80-110); HEMOLYSIS < 15 (0-50); Magnesium 2.2 mg/dL (1.6-2.3); Potassium 2.8 mmol/L (3.4-5.1); Sodium 136 mmol/L (137-145)
[2019-11-18 06:29] LABS: Add Manual Diff / Slide Review NO; Basophils Absolute Auto 100 /uL (0-100); Basophils Percent Auto 0.9 % (0-2); Eosinophils Absolute Auto 100 /uL (0-450); Hematocrit 36.8 % (41-53); Lymphocytes Absolute Auto 400 /uL (1100-4500); Lymphocytes Percent Auto 6.6 % (25-40); Mean Corpuscular HGB Conc 32.7 % (30-36); Mean Corpuscular Hemoglobin 30.9 PG (26-34); Mean Corpuscular Volume 94.3 fL (80-100); Monocytes Absolute Auto 500 /uL (0-900); Monocytes Percent Auto 9.3 % (3-14); Neutrophils Absolute Auto 4400 /uL (1500-7000); Neutrophils Percent Auto 81.2 % (50-75); Platelet Count 121 X10^3/uL (150-400); Red Cell Distribution Width 15.4 % (11.6-14.8); White Blood Cell Count 5.5 X10^3/uL (4.5-11.0)
--- NOTE | 2019-11-18 06:44 | PC.NURSE ---
Addendum entered by Amber Byrne R.N. 11/18/19 07:20: Dr Vickers in to see patient. Original Note: Paging government operations consultant provider Dr Vickers, patient with a potassium of 2.8. Waiting on a return page.
--- NOTE | 2019-11-18 07:20 | P.PN_ITS ---
Subjective <Dereck Vickers MD - Last Filed: 11/19/19 07:57> Subjective Date Patient Seen: 11/18/19 Time Patient Seen: 07:20 Interval history: Patient had a fairly good night last night. Supple little bit more definitely awake this morning and communicative. Nursing staff states he is definitely improving. Moving a little bit more on his own in bed. Got up a little bit yesterday still exquisitely tender his backside. Still some blisters a little skin tear in the gluteal cleft some redness around consistent with cellulitis. Culture and sensitivities are now back. And we will adjust antibiotics today. Respiratory status is improved a little bit. As well as confusion a little bit is improved. Still really unable to work with physical therapy and quite weak. Definitely will need to be sent to [facility]. Exam <Dereck Vickers MD - Last Filed: 11/19/19 07:57> Vital Signs (past 8 hours): - 11/17/19 23:30 11/18/19 04:35 Temperature 97.9 F 97.7 F Pulse Rate 51 L 49 L Respiratory Rate 12 12 Blood Pressure 168/73 H 132/65 Pulse Oximetry 96 100 Fraction of Inspired Oxygen 30 Oxygen Delivery Method Nasal Cannula Oxygen Flow Rate 2 Narrative Exam Narrative: Gen.: Alert recognizes me disoriented to time HEENT: Pupils equal round and reactive or mucosa is moist. Neck is supple. Cardio: S1-S2 mild bradycardia. Respiratory: Lungs show improved aeration. Still some fine crackles. Abdomen: Soft obese nontender. Extremities: Lower extremity edema. Skin. Backside shows some blisters due to pressure that were present before h ospitalization. Fissured down the gluteal cleft redness consistent with cellulitis. Objective <Dereck Vickers MD - Last Filed: 11/19/19 07:57> Labs Result Diagrams: 11/19/19 05:37 11/19/19 05:37 Labs: Laboratory Results - last 24 hr 11/17/19 11/17/19 11/17/19 07:02 07:02 07:02 WBC 6.3 RBC 3.68 L Hgb 11.5 L Hct 35.0 L MCV 95.1 MCH 31.2 MCHC 32.8 RDW 15.4 H Plt Count 116 L Neut % (Auto) 83.3 H Lymph % (Auto) 5.5 L [place] % (Auto) 8.6 Eos % (Auto) 2.0 Baso % (Auto) 0.6 Neut # (Auto) 5300 Lymph # (Auto) 300 L [place] # (Auto) 500 Eos # (Auto) 100 Baso # (Auto) 0 PT 31.0 H D INR 2.6 H Sodium 136 L Potassium 3.1 L Chloride 102 Carbon Dioxide 20 L BUN 87 H Creatinine 3.90 H Estimated GFR 15.0 L BUN/Creatinine Ratio 22.3 H Glucose 100 Calcium 8.5 Magnesium 2.4 H 11/18/19 11/18/19 11/18/19 05:49 05:49 05:49 WBC 5.5 RBC 3.90 L Hgb 12.0 L Hct 36.8 L MCV 94.3 MCH 30.9 MCHC 32.7 RDW 15.4 H Plt Count 121 L Neut % (Auto) 81.2 H Lymph % (Auto) 6.6 L [place] % (Auto) 9.3 Eos % (Auto) 2.0 Baso % (Auto) 0.9 Neut # (Auto) 4400 Lymph # (Auto) 400 L [place] # (Auto) 500 Eos # (Auto) 100 Baso # (Auto) 100 PT 23.2 H D INR 2.0 H Sodium 136 L Potassium 2.8 L Chloride 100 Carbon Dioxide 23 BUN 83 H Creatinine 3.70 H Estimated GFR 15.9 L BUN/Creatinine Ratio 22.4 H Glucose 144 H Calcium 8.5 Magnesium 2.2 Assessment & Plan <Dereck Vickers MD - Last Filed: 11/19/19 07:57> Assessment & Plan narrative: Sepsis. Patient meets criteria for sepsis due to his infection of his cellulitis. Patient had elevated white blood cell count he did have elevation of his kidney function due to acute on chronic renal failure. Elevation of his bilirubin. All this places him in criteria for sepsis on admission to the hospital. Cellulitis buttock area with skin breakdown due to ongoing pressure. All present before hospitalization. Patient's skin culture has come back. Green E coli and Enterococcus. Reviewed sensitivities. Adjustment antibiotic. Stop vancomycin. Cephalosporin. Start Ancef due to his kidney dysfunction we will renal dose with the help pharmacy. He will probably go home on oral amoxicillin. Acute on chronic renal failure. Patient has chronic renal failure stage 4. Creatinine is down a little bit today. Some mild improvement with ongoing diuresis will continue with IV Lasix. Surprisingly his potassium is quite low. We have been giving him a little bit of potassium replacement was nervous to provide too much due to his kidney failure we will continue with ongoing potassium replacement kidney function checking and recheck potassium later this afternoon. Profound hypokalemia. Acute. Potassium replacement orally and IV today recheck later this afternoon. Acute systolic congestive heart failure with exacerbation Patient has elevated BNP signs of pulmonary congestion on lung exam and x-ray and enlarged heart. This echocardiogram shows a decreased ejection fraction with global hypokinesis. Continue with diuresis with Lasix today. Continue with beta-marina although some dose adjustments are happening because of some mild bradycardia. Because of significant kidney declined he is not on an Eder or an Arb. Acute respiratory failure due to his underlying systolic congestive heart failure and infectious source. Patient was hypoxic requiring oxygen. Discussed with patient at time CPAP although patient was unwilling unable to use this. This is improving as were diuresing him. Supratherapeutic INR. INR much improved today after oral vitamin K continue to monitor PT and INR hold his warfarin until further improvement. Acute confusional state consistent with delirium due to infectious sources kidney sources and hospitalization. Still at times confused with nursing staff initial aggressiveness is improved over time here in the hospitalization. Will continue to monitor and treat the underlying causes. Atrial fibrillation patient has intermittent atrial fibrillation previous history of rapid ventricular response. He is bradycardic now. Still having atrial fibrillation on his EKG. Will continue to monitor. 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 Kidney function due to of peripheral vascular disease due to it atrophy of the kidney history of cerebrovascular disease and cerebral hemorrhage. All these are chronic and stable but contributed to his morbidity. Continue with current statin dosing. Low back pain. With inability to ambulate due to discomfort. Having hard time working with physical therapy due to the discomfort and pain. Will continue to monitor. Code status. Patient is a DNR. Reviewed his pulse form which refilled out a couple years ago. And reconfirmed with patient and today. Disposition plan. Slow improvement. Hospitalization a couple more days. Monitor kidney function electrolyte function delirium status will need long-term nursing care support.
--- NOTE | 2019-11-18 09:00 | DI.RAD.S_ITS ---
PROCEDURE: XR CHEST 1V INDICATIONS: chf short of breath TECHNIQUE: One view of the chest was acquired. COMPARISON: [facility], , XR CHEST 1V, 11/14/2019, 18:14. [facility], , CHEST 2 VIEW, 01/07/2018, 5:26. FINDINGS: Surgical changes and devices: None. Lungs and pleura: Lungs are mildly edematous. No pleural effusions or pneumothorax. Mediastinum: Mediastinal contours appear normal. Heart size is globally enlarged. Bones and chest wall: No suspicious bony lesions. Overlying soft tissues appear unremarkable. IMPRESSION: Chronic CHF pattern without pleural effusion. No definite change from 4 days ago. Dictated by: Cleve Hull M.D. on 11/18/2019 at 10:29 Approved by: Cleve Hull M.D. on 11/18/2019 at 10:29
[2019-11-18] MEDS: FUROSEMIDE 40 MG/4 ML VIAL IV ×2 (09:22→21:46)
[2019-11-18] MEDS: TAMSULOSIN 0.4 MG CAPSULE PO (09:24)
[2019-11-18] MEDS: POTASSIUM CHLORIDE 20 MEQ/15 ML UDC 30 MEQ PO ×2 (09:25→16:32)
[2019-11-18] MEDS: POTASSIUM CHLORIDE 60 MEQ in SODIUM CHLORIDE 0.9% 500 ML 88.3 ML IV (09:39)
--- NOTE | 2019-11-18 11:56 | PC.NURSE ---
Addendum entered by Purnima Martínez R.N. 11/18/19 12:43: Pt's family stated that pt did not feel good. Upon assessment, VSS. BP 153/82, pulse 50, O2 sat 94% on RA. Pt's feet reclined, placed onto pillows. Pt had minimal lunch intake. Chair alarm on. Pt denied feeling light headed or dizzy. Original Note: Day Shift- Pt oriented to name, , [facility], September 2020. Forgetful of information talked about with pt from previous conversations with pt. Family intermittently at bedside. Pt OOB to BSC using ceiling lift and 2-3PA. Pt tends to call out loud with movement and positioning of sling. Pt appreciates being told what is happening before the action. Pt had moderate formed BM. few small drops of blood noted in commode, surrounding rectal area is fragile skin, skin tear like to, CA[place]. right and left inner buttock blister, skin tear-like wounds covered with CDI allevyn dressings. Ceiling lift used to place pt in recliner chair, waffle cushion placed under buttock. folded pillow case placed under scrotum to elevate. Chair alarm on, call light within reach.
--- NOTE | 2019-11-18 13:12 | OT.IP.TRT ---
Current Diagnoses Cellulitis of buttock (11/14/19) Occupational Therapy Treatment Note M2 OT-IP Current Condition Start: 11/16/19 16:13 Freq: Status: Active Protocol: Document 11/16/19 14:15 [facility] (Rec: 11/16/19 16:33 [facility] [id number]) Occupational Therapy Current Condition Current Condition Evaluation Date 11/16/19 Treatment Diagnosis Presacral ulcer, decreased mobility, self -care, chronic renal failure Diagnosis Onset Date 11/14/19 Weight Bearing Status Weight Bearing Status Weight Bear as Tolerated M3 OT- IP Subjective and Pain Start: 11/16/19 16:13 Freq: Status: Active Protocol: Document 11/18/19 12:42 [facility] (Rec: 11/18/19 13:12 [facility] [id number]) OT- Subjective Occupational Therapy Visit Type Type Treatment Note Visit Start Time 11:55 Visit Stop Time 12:19 Total Visit Minutes 24 Occupational Therapy Visit Comments Patient Comments Pt's family in the room and asked family to leave so able to do cognitive assessment with pt as pt is highly distracted. Patient/Caregiver Goals Pt wants to go home. M4 OT- IP ADL's Start: 11/16/19 16:13 Freq: Status: Active Protocol: Document 11/18/19 12:42 [facility] (Rec: 11/18/19 13:12 [facility] [id number]) OT ADL-Grooming General Evaluation Grooming Ability Standby Assistance Areas Needing Assistance Retrieving/Set-up of Grooming Items Comments OT Grooming Comments Pt able to wash his hands, face and brush his hair after set-up. OT ADL-Oral Care Comments Oral Care Comments Pt not wanting to brush his teeth. M5 OT- IP IADL's Start: 11/16/19 16:13 Freq: Status: Active Protocol: Document 11/16/19 14:15 [facility] (Rec: 11/16/19 16:33 [facility] [id number]) OT-Instrumental Activities of Daily Living Deficits IADL Deficits Identified Deficits Home Safety Awareness Awareness of Need for Assistance at Home Decreased Awareness Ability to Problem Solve Emergency Unable to Problem Solve Situations Home Safety Comments At this time pt has poor safety awareness and insight for needs and would be dependent for all IADl needs. M6 OT- IP Functional Cognition Start: 11/16/19 16:13 Freq: Status: Active Protocol: Document 11/18/19 12:42 [facility] (Rec: 11/18/19 13:12 [facility] [id number]) Cognitive Factors Limiting Selfcare Function Cognitive Ability Level of Alertness Alert,Confusional State Patient Orientation Name Attention Span Ability Capable of Focused Attention, Unable to Sustain Attention Ability to Follow Commands Able to Follow One Step Commands with Increased Time, Able to Follow One Step Commands with Repetition Memory Description Immediate Impaired,Short Term Impaired,Working Impaired Safety Awareness Underestimates Need for Assistance Problem Solving Ability Unable to Identify Errors, Needs Assist to Identify Solutions Executive Function Ability Unable to Hold Focus,Unable to Switch Focus,Unable to Filter Distractions,Unable to Make Plans,Unable to Organize Plans ,Unable to Remember Details Cognitive Tests SLUMS Per pt's family aware having decreased functional cognition and short term memory. Pt scored 13/30 on the SLUMS which implies dementia as a normal score for pt's level of education would be 27 /30. Pt not able to subtract two digit numbers, only able to recall 8 animals in one minute , recall 3/5 words after time passes, not able to state 3 and 4 digit numbers backwards, unable to draw hour markers and time given, , unable to identify the triangle, and only able to answer 2/4 questions after paragraph read . Cognitive Comments Cognitive Assessment Comments Pt likes to joke around especially when not able to answer questions. Pt decreased insight to his abilities and wanting to go home. OT- Vision and Hearing OT- Vision Assessment Vision Assessment Comments Pt hard of hearing. Hard to assess due to pt's difficulty to follow directions appears to have deficits with peripheral vision. Pt states that is was 9:00 when it was 12:15. M7 OT- IP Mobility and Balance Start: 11/16/19 16:13 Freq: Status: Active Protocol: Document 11/16/19 14:15 [facility] (Rec: 11/16/19 16:33 [facility] [id number]) OT- Bed Mobility Assessment Rolling Type of Rolling Roll to Right Level of Assistance Maximum Assistance,2 Person Assistance,Bedrails Supine to Sit Supine to Sit Assist Maximum Assistance,2 Person Assistance,Head of Bed Elevated,Bedrails Sit to Supine Sit to Supine Assist Total Assistance,2 Person Assistance Scooting Scooting to Edge of Bed Total Assistance,2 Person Assistance : . M8 OT- IP Objective Assessments Start: 11/16/19 16:13 Freq: Status: Active Protocol: Document 11/16/19 14:15 [facility] (Rec: 11/16/19 16:33 [facility] [id number]) OT Strength Comments Strength Comments At least 3+/5 throughout. To assess in more details tomorrow as pt having difficulty to follow directions. OT-Muscle Tone Assessment Muscle Tone WNL No M9 OT- IP Assessment and Plan Start: 11/16/19 16:13 Freq: Status: Active Protocol: Document 11/18/19 12:42 [facility] (Rec: 11/18/19 13:12 [facility] [id number]) OT Summary Assessment and Plan Potential Rehabilitation Potential Fair Analytic Complexity at Evaluation Moderate Summary OT Impairments Pain,Strength,Balance, Functional Cognition, Functional Mobility,Self- Feeding,Grooming,Dressing, Toileting,Bathing,Toilet Transfers,Shower Transfers, Activity Tolerance Progress Towards Goals Slow Progress due to Pain,Slow Progress due to Medical Issues,Slow Progress due to Activity Tolerance,Slow Progress due to Cognition Assessment Summary Pt needs lots of encouragement and step by step instructions in order to participate in therapy. Pt will benefit from skilled rehab and may need long term care administrator care afterwards pending progress,medical status, and family's ability to care for the pt. Goals Self-Feeding Goal Standby Assistance Grooming Goal Standby Assistance Dressing Goal Moderate Assistance Toileting Goal Moderate Assistance Bathing Goal Moderate Assistance Toilet Transfer Goal Moderate Assistance Shower Transfer Goal Moderate Assistance Patient/Caregiver Education Goal Caregiver Independent Assisting Patient Days to Meet Goals 20 Frequency of Treatment Frequency Of Treatment Once a Day Treatment Plan OT Treatment Plan ADL Training,Functional Cognition Training,Functional Mobility,Patient/Family Education,Discharge Planning Discharge Recommendations OT Discharge Recommendations SNF Rehab Home Equipment Needs Defer to SNF.
--- NOTE | 2019-11-18 14:39 | PT.IPTN ---
Current Diagnoses Cellulitis of buttock (11/14/19) Physical Therapy Treatment Note M2 PT-IP Current Condition Start: 11/15/19 08:19 Freq: NEEDED Status: Active Protocol: Document 11/15/19 12:00 [facility] (Rec: 11/15/19 12:37 [facility] [id number]) Physical Therapy Current Condition Current Condition Evaluation Date 11/15/19 Treatment Diagnosis sacral PI, chronic LBP, impaired mobility Onset Date 11/14/19 Precautions Other Precautions supratherapeutic INR (5.2) and PT (62.3), avoid sacral shear Weight Bearing Status Weight Bearing Status Full Weight Bearing M3 PT-IP Subjective Start: 11/15/19 08:19 Freq: NEEDED Status: Active Protocol: Document 11/18/19 14:13 [facility] (Rec: 11/18/19 14:58 [facility] [id number]) Subjective Physical Therapy Visit Type Type Treatment Note Visit Start Time 14:13 Visit Stop Time 14:39 Total Visit Minutes 26 Physical Therapy Visit Comments Patient Comments Pt agreeable to doing PT, wanting to get back in bed. Therapy Pain Assessment Pain Present Pain Present Denied Pain M4 PT-IP Mobility and Gait Start: 11/15/19 08:19 Freq: NEEDED Status: Active Protocol: Document 11/18/19 14:13 [facility] (Rec: 11/18/19 14:58 [facility] [id number]) PT-Bed Mobility Assessment Sit to Supine Sit to Supine Moderate Assistance,1 Person Assistance,Bedrails Scooting Scooting Up and Down in Bed Contact Guard Assistance PT-Transfer Assessment Sit to and From Stand Sit to and from Stand Maximum Assistance,1 Person Assistance,Use of Upper Extremities Equipment Transfer Assistive Device Gait Belt,Front Wheeled Walker Orthotic/Prosthetic Devices or Brace: No Transfers Transfer Destination Bed Transfer Technique Stand Step Pivot Transfer Ability Level of Assist Minimal Assistance,1 Person Assistance,Use of Upper Extremities Comments Mobility Comments Pt was up in chair when arrived. sit to stand using fww Max A x1, therapist blocked FWW anteriorly to prevent forward movement. Cued for proper hand placement pushing up with1 UE chair arms then transition to FWW and step pivoting chair to bed and body awareness where going. Pt repeatedly requested SPC use with therapist education needing BUE for support and FWW safest at this time. Therapist managed IV pole and catheter bag on FWW. Pt was able to complete sitting> supine with support provided for BLE into bed then patient was ableto reposition legs and bridge to center pelvic in bed with cuing for spacial awareness. Nurse entered room request for modified supine pillow placement to L to unweight R pelvis for skin integrity positioning, Yarely by therapist to maintain Log roll by patient after patient to maintain side during pillow placement by nurse. Pt had call light and all needs in reach when left, nurse in room. Gait Assessment Gait Gait Assistance Required: Minimum Assistance,1 Person Assist Distance (Feet) 3 Able to Maintain Weight Bearing Status Yes During Gait Assistive Devices Assistive Device Gait Belt,Front Wheeled Walker Orthotic/Prosthetic Devices or Brace: No Factors Limiting Gait Function Factors Limiting Gait Function Decreased Activity Tolerance, Decreased Strength,Difficulty Following Directions,Poor Balance,Poor Safety Awareness, Respiratory Distress Comments Gait Comments Pt was able to step pivot chair to bed 3 steps using FWW Min A with max cuing for safety body with foot placement and FWW positioning with support for not allowing fWW pushed forward and awareness of knee extension to prevent buckling, stable. Stair Climbing Assessment Comments Stair Climbing Comments unable. PT-Balance Assessment Sitting Balance and Reactions Static Sitting Balance Ability Good Dynamic Sitting Balance Ability Fair Standing Balance and Reactions Static Standing Balance Ability Fair Dynamic Standing Balance Ability Poor Device Used FWW M5 PT-IP Objective Assessments Start: 11/15/19 08:19 Freq: NEEDED Status: Active Protocol: Document 11/15/19 12:00 [facility] (Rec: 11/15/19 12:37 [facility] [id number]) Orientation Orientation/Cognition Level of Alertness Confusional State Orientation Name,Day of Week,Place, Situation Language Function Ability No Deficits Noted,Hard of Hearing Safety Awareness Decreased Safety Awareness Comments Pt has poor insight into his health problems and the exacerbation of his pressure injuries. Gross Range of Motion Lower Extremity ROM Assessment Bilaterally Impaired Strength Lower Extremity Strength Assessment Bilaterally Impaired Hip 3+/5 Comments Strength Comments Full MMT not undertaken due to supratherapeutic INR Coordination Assessment Gross Coordination Gross Coordination Impaired Assessment Finger to Nose Test Minimal Impairment Pronation/Supination Test Normal Performance Coordination Comments Pt with signs of dysmetria on finger to nose testing - missed targets ~3 cm bilaterally M6 PT-IP Treatment Start: 11/15/19 08:19 Freq: NEEDED Status: Active Protocol: Document 11/18/19 14:13 [facility] (Rec: 11/18/19 14:58 [facility] [id number]) Physical Therapy Treatment Education Education Provided Safety Other Treatments Other Treatment Performed Continued to educate pt about need for mobility in order to promote wound healing. M7 PT-IP Assessment and Plan Start: 11/15/19 08:19 Freq: NEEDED Status: Active Protocol: Document 11/18/19 14:13 [facility] (Rec: 11/18/19 14:58 [facility] [id number]) PT Summary Assessment and Plan Potential Rehabilitation Potential Fair Status of Condition at Evaluation Evolving Summary Progress Towards Goals Progressing Toward Goals,Slow Progress due to Medical Issues Assessment Summary Pt did better today overall with mobility, Max sit to stand FWW, step pivot chair to bed with max cues for body and fWW positioning and proper hand placement safety, sit> supine Mod Ble into bed but self repostioning with max cuing. . He is very slow moving but was able to scoot himself to the side in bed and use trapeze to help scooting up in bed today. He will require rehab prior to returning home. Goals Bed Mobility Goal Contact Guard Assistance Transfer Goal Contact Guard Assistance,Cane, Front Wheeled Walker Gait Goal Contact Guard Assistance,Cane, Front Wheel Walker Gait Distance 150 feet Other Goals - up/down 6 steps with left rail ascending SBA Days to Meet Goals 10 Frequency of Treatment Frequency Of Treatment Once a Day Treatment Plan Physical Therapy Treatment Plan Bed Mobility Training,Transfer Training,Gait Training, Therapeutic Exercise,Balance Retraining,Discharge Planning, Hot or Cold Pack,Neuromuscular Re-ed,Coordination Retraining ,Manual Therapy Other Recommendations and Next Treatment bed mobility, transfer to Focus chair, gait Recommendations To Nursing Amount of Assist Needed 1 Person Assist Discharge Recommendations PT Discharge Recommendations SNF Rehab,LTAC Equipment Needed for Home Before tub transfer bench and raised Discharge toilet seat if going home Transportation Needs at Discharge Private Vehicle,Stretcher/ Ambulance
[2019-11-18] MEDS: AMPICILLIN/SULBACTAM 1.5 GM 1.5 GM in SODIUM CHLORIDE 0.9% 100 ML IV (16:25)
[2019-11-18 17:41] LABS: HEMOLYSIS < 15 (0-50); Potassium 4.2 mmol/L (3.4-5.1)
[2019-11-18] MEDS: ROSUVASTATIN 10 MG TABLET 40 MG PO (21:44)
[2019-11-18] MEDS: SERTRALINE 25 MG TABLET PO (21:45)
[2019-11-18] MEDS: SODIUM CHLORIDE 0.9% FLUSH 10 ML IV (21:45)
[2019-11-19] VITALS (11 sets, daily range): BP systolic 139–161; BP diastolic 60–86; PULSE 51–63; RESP 16–20; TEMP 36.7–37.6; O2SAT 90–100
[2019-11-19] MEDS: SODIUM CHLORIDE 0.9% 250 ML 21 ML IV (03:52)
[2019-11-19] MEDS: AMPICILLIN/SULBACTAM 1.5 GM 1.5 GM in SODIUM CHLORIDE 0.9% 100 ML IV ×2 (03:53→16:40)
[2019-11-19] MEDS: SODIUM CHLORIDE 0.9% FLUSH 10 ML IV ×3 (03:54→21:19)
--- NOTE | 2019-11-19 03:58 | PC.NURSE ---
Shift note: Patient AxO to self, , and year, guessed that it was September or October. Is forgetful and requires reorienting and redirecting, forgets his own physical limitations. Applied new allevyn dressings to skin tears, barrier cream to gluteal cleft, perineum, and testicles. Patient moves self around in bed, this causes dressings to come off, can turn self to right side without assistance. Patient using trapeze effectively to assist in turning himself, turns with staff, and repositioning. Patient's saturations bounce around, alternates between venturi mask and room air, patient minimally compliant with mask and O2 therapy. Respiratory therapy placed venturi mask. Patient saturates appropriately when awake on room air. Patient will desaturate into 70's on room air while asleep. Continuous pulse ox in place on patient's toe. Patient with scrotal edema, using folded pillow case to elevate scrotum for comfort. Patient report's passing flatus that might be a poop, smear on green chux pad. Performed carmel-care and applied new alleyvn's and barrier cream to gluteal cleft, perineum, and testicles. Around 0400 went to hang patient's IV antibiotics and patient notifies this RN that he's determined to get self out of bed. Attempted to reeducate patient multiple times that he could not get out of bed alone and that it would require additional staff and ceiling lift, patient refuses additional staff and lift, stating I got out of bed yesterday by myself and asking for his cane. Patient unable to recognize limitations to his own physical conditioning, his own safety, and staff safety. Patient was incontinent of stool, pericare performed and new brief applied. Patient is a high fall risk, bed alarm on and functioning, patient has mixed ability to use call light to alert staff of needs, makes them known when staff is in the room.
[2019-11-19 06:10] LABS: Add Manual Diff / Slide Review NO; Basophils Absolute Auto 100 /uL (0-100); Basophils Percent Auto 0.8 % (0-2); Eosinophils Absolute Auto 100 /uL (0-450); Eosinophils Percent Auto 1.8 % (2-4); Hematocrit 35.9 % (41-53); Hemoglobin 11.9 g/dL (13.5-17.5); Lymphocytes Absolute Auto 300 /uL (1100-4500); Mean Corpuscular HGB Conc 33.3 % (30-36); Mean Corpuscular Hemoglobin 31.3 PG (26-34); Monocytes Absolute Auto 700 /uL (0-900); Monocytes Percent Auto 10.4 % (3-14); Neutrophils Absolute Auto 6000 /uL (1500-7000); Platelet Count 122 X10^3/uL (150-400); Red Blood Cell Count 3.82 X10^6/uL (4.5-5.9); Red Cell Distribution Width 15.6 % (11.6-14.8); White Blood Cell Count 7.2 X10^3/uL (4.5-11.0)
[2019-11-19 06:25] LABS: INR 1.8 (0.9-1.3); Prothrombin Time 21.2 SECONDS (10.1-12.7)
[2019-11-19 06:31] LABS: BUN Creatinine Ratio 20.9 (6-22); Blood Urea Nitrogen 71 mg/dL (9-20); Calcium 8.6 mg/dL (8.4-10.2); Carbon Dioxide 23 mmol/L (22-32); Chloride 101 mmol/L (98-107); Estimated Glomerular Filt Rate 17.6 mL/min (>60); Glucose 108 mg/dL (80-110); HEMOLYSIS < 15 (0-50); Potassium 3.1 mmol/L (3.4-5.1); Sodium 139 mmol/L (137-145)
--- NOTE | 2019-11-19 07:57 | PM.PN.1 ---
Subjective Subjective Date Patient Seen: 11/19/19 Time Patient Seen: 07:57 Interval history: Patient seen and evaluated. Had a good day yesterday. He says he recognizes me again. Gets he stood up at the bed yesterday took a few steps with his cane which is inside improvement. He has had offloading of his bottom. Had a couple bowel movements yesterday which has been good. Long catheter has been removed. Not super excited about getting rehab and wants to go home but he understands that. Certainly he is too weak to go home with family at this point. Exam Vital Signs (past 8 hours): - 11/19/19 00:21 11/19/19 04:20 11/19/19 07:52 Temperature 98.2 F 98.2 F Pulse Rate 55 L 58 L Respiratory Rate 18 17 Blood Pressure 148/86 H 161/60 H Pulse Oximetry 100 95 94 Fraction of Inspired Oxygen 30 Oxygen Delivery Method Venturi Mask Oxygen Flow Rate 6 Narrative Exam Narrative: Gen.: Alert oriented to place HEENT: Pupils equal round and reactive or mucosa is slightly dry neck is supple Cardio: S1-S2 irregular rate and rhythm Respiratory: Mild expiratory wheezes normal respiratory effort Abdomen: Soft nontender no rebound or guarding no liver spleen enlargement no appreciable hernias Extremities: Full range of motion no appreciable weakness no cyanosis or edema. Objective Labs Result Diagrams: 11/19/19 05:37 11/19/19 05:37 Labs: Laboratory Results - last 24 hr 11/18/19 11/19/19 11/19/19 17:22 05:37 05:37 WBC 7.2 RBC 3.82 L Hgb 11.9 L Hct 35.9 L MCV 94.0 MCH 31.3 MCHC 33.3 RDW 15.6 H Plt Count 122 L Neut % (Auto) 83.0 H Lymph % (Auto) 4.0 L Forest % (Auto) 10.4 Eos % (Auto) 1.8 L Baso % (Auto) 0.8 Neut # (Auto) 6000 Lymph # (Auto) 300 L Forest # (Auto) 700 Eos # (Auto) 100 Baso # (Auto) 100 PT 21.2 H INR 1.8 H Sodium Potassium 4.2 D Chloride Carbon Dioxide BUN Creatinine Estimated GFR BUN/Creatinine Ratio Glucose Calcium 11/19/19 05:37 WBC RBC Hgb Hct MCV MCH MCHC RDW Plt Count Neut % (Auto) Lymph % (Auto) Forest % (Auto) Eos % (Auto) Baso % (Auto) Neut # (Auto) Lymph # (Auto) Forest # (Auto) Eos # (Auto) Baso # (Auto) PT INR Sodium 139 Potassium 3.1 L Chloride 101 Carbon Dioxide 23 BUN 71 H Creatinine 3.40 H Estimated GFR 17.6 L BUN/Creatinine Ratio 20.9 Glucose 108 Calcium 8.6 Assessment & Plan Assessment & Plan narrative: Sepsis. Patient meets criteria for sepsis due to his infection of his cellulitis. Patient had elevated white blood cell count he did have elevation of his kidney function due to acute on chronic renal failure. Elevation of his bilirubin. All this places him in criteria for sepsis on admission to the hospital. Cellulitis buttock area with skin breakdown due to ongoing pressure. All present before hospitalization. Patient's skin culture has come back with E coli and Enterococcus. Continue IV Ancef. Discharge with amoxicillin. Acute on chronic renal failure. Patient has chronic renal failure stage 4. Ongoing improvement of kidney function with diuresis. Creatinine is continuing to improve. Continue with diuresis today. Hypokalemia. Lots of potassium yesterday. Potassium is mildly improved continue with lots of potassium today Acute systolic congestive heart failure with exacerbation Patient has elevated BNP signs of pulmonary congestion on lung exam and x-ray and enlarged heart. This echocardiogram shows a decreased ejection fraction with global hypokinesis. On Lasix 40 mg twice a day. Will continue with this while he is here in the hospital think he still got some fluid overload. Acute respiratory failure due to his underlying systolic congestive heart failure and infectious source. Patient was hypoxic requiring oxygen. Discussed with patient at time CPAP although patient was unwilling unable to use this. This is improving as were diuresing him. Supratherapeutic INR. INR is now improved a little bit low. We will start back on his warfarin for his atrial fibrillation and stroke risk. Acute confusional state consistent with delirium due to infectious sources kidney sources and hospitalization. Still at times confused with nursing staff initial aggressiveness is improved over time here in the hospitalization. Improved and heading back to baseline. Atrial fibrillation patient has intermittent atrial fibrillation previous history of rapid ventricular response. Pulses improving. Continue with current beta-marina dose. 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 Kidney function due to of peripheral vascular disease due to it atrophy of the kidney history of cerebrovascular disease and cerebral hemorrhage. All these are chronic and stable but contributed to his morbidity. Continue with current statin dosing. Low back pain. Improving as his cellulitis improves. Continue to work with physical therapy Code status. Patient is a DNR. Reviewed his pulse form which refilled out a couple years ago. And reconfirmed with patient and today. Disposition plan. [facility]charge [facility]
[2019-11-19] MEDS: FUROSEMIDE 40 MG/4 ML VIAL IV ×2 (08:18→21:19)
[2019-11-19] MEDS: POTASSIUM CHLORIDE 60 MEQ in SODIUM CHLORIDE 0.9% 500 ML 88.333 ML IV (08:19)
[2019-11-19] MEDS: TAMSULOSIN 0.4 MG CAPSULE PO (08:24)
[2019-11-19] MEDS: POTASSIUM CHLORIDE 20 MEQ/15 ML UDC 30 MEQ PO (08:24)
[2019-11-19] MEDS: WARFARIN 2.5 MG TABLET PO (09:57)
--- NOTE | 2019-11-19 12:13 | PT.IPTN ---
Current Diagnoses Cellulitis of buttock (11/14/19) Physical Therapy Treatment Note M2 PT-IP Current Condition Start: 11/15/19 08:19 Freq: NEEDED Status: Active Protocol: Document 11/15/19 12:00 AW (Rec: 11/15/19 12:37 AW [id number]) Physical Therapy Current Condition Current Condition Evaluation Date 11/15/19 Treatment Diagnosis sacral PI, chronic LBP, impaired mobility Onset Date 11/14/19 Precautions Other Precautions supratherapeutic INR (5.2) and PT (62.3), avoid sacral shear Weight Bearing Status Weight Bearing Status Full Weight Bearing M3 PT-IP Subjective Start: 11/15/19 08:19 Freq: NEEDED Status: Active Protocol: Document 11/19/19 11:36 SP (Rec: 11/19/19 14:20 SP [email or web address]) Subjective Physical Therapy Visit Type Type Treatment Note Visit Start Time 11:36 Visit Stop Time 12:13 Total Visit Minutes 54 Notes Pt seen for split session secondary to decreased strength and report very tired during trial of bed mobility. Seen [id number], [id number]. Department Store Door Greeter/nurse assist during commode use. Physical Therapy Visit Comments Patient Comments Pt agreeable to PT, second attempt for mobility. I may need to use the bathroom. Therapy Pain Assessment Pain Present Pain Present Denied Pain M4 PT-IP Mobility and Gait Start: 11/15/19 08:19 Freq: NEEDED Status: Active Protocol: Document 11/19/19 11:36 SP (Rec: 11/19/19 14:20 SP [email or web address]) PT-Bed Mobility Assessment Rolling Type of Rolling Roll to Left Level of Assist Moderate Assistance,1 Person Assistance Supine to Sit Supine to Sit Maximum Assistance,1 Person Assistance,Head of Bed Elevated,Bedrails Scooting Scooting to Edge of Bed Moderate Assistance PT-Transfer Assessment Sit to and From Stand Sit to and from Stand Moderate Assistance,1 Person Assistance,Use of Upper Extremities Equipment Transfer Assistive Device Gait Belt,Front Wheeled Walker Transfers Transfer Destination Chair,Bedside Commode Transfer Technique Stand Step Pivot Transfer Ability Level of Assist Moderate Assistance,Maximum Assistance,1 Person Assistance ,2 Person Assistance,Use of Upper Extremities Comments Mobility Comments Pt was laying in bed HOB elevated when arrived, attempted to mobilize log roll , supine > sitting intially Mod A for BLe and trunk movement but then patient refused to work further. Educated on benefits of mobilizing for increase strength and functional mobility, I am tired and need a nap for couple of hours. Pt willing to mobility in late am, log roll and supine > sitting max cuing for motor planning BLe to EOB use of trapeze for self support upper body positioning , Max support for trunk positioning with trapeze support at first then pushing from bed to transition to sitting and scooting to EOB until BLE on floor. Pt was ableto complete sit to stand from EOB Mod- Max using FWW, cued for hand pl acement unable to safely plan to chair so sat back on bed and pressed call light for nursign asistant forassist, patient reported needing to use bathroom. dental office assistant/nurse arrived and assisted SBA durign step pivot (FWW Mod-Max A of1) to commode and performed brief/ hygiene mgt. Pt completed another step pivot transfer commode to chair (all to right ) Mod- Max of 1 with max cues for foot and FWW repositioning and hand placement safe transfer. Therapist blocked FWW with front of BLE to assist maintaining FWW close to patient, tends to push out in front of him or away. Pt required one step commands and continued redirection of need for BUE usign FWW for transfers, cane is not safe at this time. Pt was reclined in chair with alarm on, call light and all needs in reach when left. Pt's and granddaughter inquired and discussed how his progress is going when leaving room. Gait Assessment Gait Gait Assistance Required: Moderate Assistance,Maximum Assistance,1 Person Assist Distance (Feet) 6 Able to Maintain Weight Bearing Status Yes During Gait Assistive Devices Assistive Device Gait Belt,Front Wheeled Walker Gait Deviations General Gait Pattern Antalgic,Decreased Stride Length,Decreased Feet Clearance,Flexed Trunk,Lateral Trunk Lean,Step-to Gait Factors Limiting Gait Function Factors Limiting Gait Function Decreased Activity Tolerance, Decreased Strength,Difficulty Following Directions,Limited Range of Motion,Pain,Poor Balance,Poor Safety Awareness, Respiratory Distress Comments Gait Comments Pt was able to step pivot EOB to bed side commode then to chair all to R usign FWW with support anterior FWW for safety and repositioning with Max cuing one step commands foot, body and FWW motor planning for safety. Mod- Max A of 1. See mobility comments for further details. Stair Climbing Assessment Comments Stair Climbing Comments unable. PT-Balance Assessment Sitting Balance and Reactions Static Sitting Balance Ability Fair Dynamic Sitting Balance Ability Poor Standing Balance and Reactions Static Standing Balance Ability Poor Dynamic Standing Balance Ability Poor Device Used FWW M5 PT-IP Objective Assessments Start: 11/15/19 08:19 Freq: NEEDED Status: Active Protocol: Document 11/15/19 12:00 AW (Rec: 11/15/19 12:37 AW [id number]) Orientation Orientation/Cognition Level of Alertness Confusional State Orientation Name,Day of Week,Place, Situation Language Function Ability No Deficits Noted,Hard of Hearing Safety Awareness Decreased Safety Awareness Comments Pt has poor insight into his health problems and the exacerbation of his pressure injuries. Gross Range of Motion Lower Extremity ROM Assessment Bilaterally Impaired Strength Lower Extremity Strength Assessment Bilaterally Impaired Hip 3+/5 Comments Strength Comments Full MMT not undertaken due to supratherapeutic INR Coordination Assessment Gross Coordination Gross Coordination Impaired Assessment Finger to Nose Test Minimal Impairment Pronation/Supination Test Normal Performance Coordination Comments Pt with signs of dysmetria on finger to nose testing - missed targets ~3 cm bilaterally M6 PT-IP Treatment Start: 11/15/19 08:19 Freq: NEEDED Status: Active Protocol: Document 11/19/19 11:36 SP (Rec: 11/19/19 14:20 SP [email or web address]) Physical Therapy Treatment Education Education Provided Safety Other Treatments Other Treatment Performed Continued to educate pt about need for mobility in order to promote wound healing. M7 PT-IP Assessment and Plan Start: 11/15/19 08:19 Freq: NEEDED Status: Active Protocol: Document 11/19/19 11:36 SP (Rec: 11/19/19 14:20 SP [email or web address]) PT Summary Assessment and Plan Potential Rehabilitation Potential Fair Status of Condition at Evaluation Evolving Summary Progress Towards Goals Progressing Toward Goals,Slow Progress due to Medical Issues Assessment Summary See mobility and gait comments . Pt required Mod- Max A of 1 for bed mobility, transfers and step pivot gait using FWW with Max cuing for motor planning and body/foot/FWW repositioning, 2nd assist for toileting BSC and as needed for safety. He will require skilled rehab prior to returning home for progressing strength, safety techniques, gait, balance for increase independence toward functional mobilty. Goals Bed Mobility Goal Contact Guard Assistance Transfer Goal Contact Guard Assistance,Cane, Front Wheeled Walker Gait Goal Contact Guard Assistance,Cane, Front Wheel Walker Gait Distance 150 feet Other Goals - up/down 6 steps with left rail ascending SBA Days to Meet Goals 10 Frequency of Treatment Frequency Of Treatment Once a Day Treatment Plan Physical Therapy Treatment Plan Bed Mobility Training,Transfer Training,Gait Training, Therapeutic Exercise,Balance Retraining,Discharge Planning, Hot or Cold Pack,Neuromuscular Re-ed,Coordination Retraining ,Manual Therapy Other Recommendations and Next Treatment bed mobility, transfer to Focus chair, gait, stair mgt Recommendations To Nursing Amount of Assist Needed 2 Person Assist Discharge Recommendations PT Discharge Recommendations SNF Rehab,LTAC Equipment Needed for Home Before tub transfer bench and raised Discharge toilet seat if going home Transportation Needs at Discharge Private Vehicle,Stretcher/ Ambulance
--- NOTE | 2019-11-19 12:15 | OT.IP.TRT ---
Current Diagnoses Cellulitis of buttock (11/14/19) Occupational Therapy Treatment Note M2 OT-IP Current Condition Start: 11/16/19 16:13 Freq: Status: Active Protocol: Document 11/16/19 14:15 CCC (Rec: 11/16/19 16:33 [facility] [email or web address]) Occupational Therapy Current Condition Current Condition Evaluation Date 11/16/19 Treatment Diagnosis Presacral ulcer, decreased mobility, self -care, chronic renal failure Diagnosis Onset Date 11/14/19 Weight Bearing Status Weight Bearing Status Weight Bear as Tolerated M3 OT- IP Subjective and Pain Start: 11/16/19 16:13 Freq: Status: Active Protocol: Document 11/19/19 12:15 PJM (Rec: 11/19/19 16:06 PJM [id number]) OT- Subjective Occupational Therapy Visit Type Type Administrative Note Visit Start Time 12:15 Notes Attempted to see pt, but pt just finishing with P.T. and too tired to participate. Will attempt again as schedule permits. No charge.
[2019-11-19 16:36] LABS: BUN Creatinine Ratio 21.3 (6-22); Blood Urea Nitrogen 66 mg/dL (9-20); Calcium 8.7 mg/dL (8.4-10.2); Carbon Dioxide 26 mmol/L (22-32); Chloride 102 mmol/L (98-107); Estimated Glomerular Filt Rate 19.5 mL/min (>60); Glucose 167 mg/dL (80-110); HEMOLYSIS < 15 (0-50); Potassium 3.8 mmol/L (3.4-5.1); Sodium 139 mmol/L (137-145)
[2019-11-19] MEDS: POTASSIUM CHLORIDE 40 MEQ in SODIUM CHLORIDE 0.9% 500 ML 130 ML IV (19:49)
[2019-11-19] MEDS: ROSUVASTATIN 10 MG TABLET 40 MG PO (21:19)
[2019-11-19] MEDS: SERTRALINE 25 MG TABLET PO (21:19)
[2019-11-20 00:15] VITALS: BP 152/80; PULSE 64; RESP 17; TEMP 36.6; O2SAT 93
--- NOTE | 2019-11-20 02:23 | PC.NURSE ---
Addendum entered by Leticia Nguyễn R.N. 11/20/19 06:51: Patient slept very little during the night. Continues to intermittently remove oxygen and then desats. Good UOP at 1850cc. Original Note: 0015 Patient is oriented to self, birthdate and place. When asked why he was here he states because he couldn't do yoga. Breath sounds are CTA. On oxygen at 2L/min per NC with sat of 93% when he leaves the oxygen on. Intermittently removes oxygen and desats into 80's. Denies SOB. HR irregular and telemetry reading was afib CVR. Denies nausea. Incontinent of stool. Pressure injury with excoriation to carmel rectal area; Allevyn dressings are CDI. Scrotum is reddened with some excoriation on posterior aspect. Becomes agressive and threatens to hit staff when pericare provided. Indwelling catheter is patent. Bruising noted on left UE, right axilla. Scrape/welt like area noted on lateral left hip. Denies pain except with pericare. Fall risk score is high and bed alarm is activated. Not able to turn himself so is being repostioned q2h. Wearing bilateral calf SCD's.
[2019-11-20] MEDS: AMPICILLIN/SULBACTAM 1.5 GM 1.5 GM in SODIUM CHLORIDE 0.9% 100 ML IV (03:53)
[2019-11-20] MEDS: SODIUM CHLORIDE 0.9% FLUSH 10 ML IV (03:59)
[2019-11-20 04:30] VITALS: BP 154/71; PULSE 61; RESP 16; TEMP 36.7; O2SAT 94
[2019-11-20 06:18] LABS: INR 1.9 (0.9-1.3); Prothrombin Time 22.8 SECONDS (10.1-12.7)
[2019-11-20 06:22] LABS: Blood Urea Nitrogen 57 mg/dL (9-20); Calcium 8.6 mg/dL (8.4-10.2); Carbon Dioxide 26 mmol/L (22-32); Chloride 101 mmol/L (98-107); Estimated Glomerular Filt Rate 20.3 mL/min (>60); Glucose 114 mg/dL (80-110); HEMOLYSIS < 15 (0-50); Potassium 3.3 mmol/L (3.4-5.1); Sodium 139 mmol/L (137-145)
--- NOTE | 2019-11-20 07:53 | PM.DS.1 ---
History of Present Illness History of Present Illness Chief complaint: Abdominal pain Discharge Providers Provider Date of admission: 11/14/19 19:16 Discharge Date: 11/20/19 Primary care physician: Dereck Vickers MD Consults: 11/14/19 19:57 Consult to COMPUTER TERMINAL OPERATOR - Funeral Home Director Stat Comment: discharge planning COMPUTER TERMINAL OPERATOR Consult: [facility] Need 11/14/19 21:43 Consult to Discharge Planning Routine Comment: 11/14/19 21:44 Consult to Occupational Therapy Evaluate & Treat Comment: Physician Instructions: Evaluate and treat Consult to Physical Therapy Evaluate & Treat Comment: Physician Instructions: Evaluate and Treat Consult to Physician Routine Comment: Consulting Provider: Jesse Mac Reason for consultation: sacral ulcer Has provider been notified: No Discharge provider: Dereck Vickers MD Summary Hospital Course Discharge Diagnosis: Please see diagnosis below Hospital Course: Sepsis. Patient admitted the hospital with sepsis elevated white blood cell count elevated bilirubin acute on chronic renal failure. Source of sepsis with cellulitis and skin breakdown in the buttock area. Patient initially treated with IV antibiotics and transition to oral antibiotics. Cellulitis buttock area with skin breakdown due to ongoing pressure. During his hospital stay he had offloading of this area. Frequent position changes. This was present before admission to the hospital. Did not worsen and in fact improved during his hospital stay. Was initially treated with vancomycin and ceftriaxone. Cultures grew out E coli and Enterococcus susceptible to penicillins. He was switched then to Unasyn and will be discharged on Augmentin. Acute on chronic renal failure. Patient was admitted the hospital with significant decline in his kidney function due to underlying infection cellulitis and congestive heart failure. During his hospital stay he had treatment of his infection. He had improvement of kidney function with the improved improved diuresis of his fluid overload status due to his systolic heart failure. She was still on high doses of Lasix IV at the time of discharge which will be transitioned over to 40 mg of Lasix b.i.d.. His kidney function at will need to be closely monitored. Hypokalemia. Patient has had significant requirements of potassium replacement as his kidney function did not improved. Along with diuresis to his heart failure. Requiring upwards of 100 mil equivalents of potassium a day. This will need to be checked frequently on the outpatient with daily potassium checks and this information was conveyed in the discharge notes orders and to the nurse. Acute systolic congestive heart failure with exacerbation patient had repeat echocardiogram which showed global hypokinesis with mall motion abnormalities and ejection fraction of 30%. During his hospital stay his beta-marina was held due to bradycardia. This will be reinstituted. Patient is not on an ROMAN-inhibitor and Arb due to his significantly poor kidney function. He will be continue with diuresis with Lasix as he still a fluid overloaded. Acute respiratory failure due to his underlying systolic congestive heart failure and infectious source. Patient was hypoxic requiring oxygen in the hospital had increased work of breathing in mild respiratory failure. Patient refused to CPAP during his hospital stay. Patient obviously has obstructive sleep apnea as well. During the hospital stay this improved with diuresis. As his lungs became clear and his fluid overlap load status improved. The time of discharge he was saturating well on room air Supratherapeutic INR. Supratherapeutic INR on admission to the hospital. Patient is on warfarin due to chronic atrial fibrillation. This was healthy was given oral vitamin K during his hospital stay his INR improved. He is back on his home dose of warfarin at 2.5 mg a day Acute confusional state consistent with delirium due to infectious sources kidney sources and hospitalization. Patient had intermittent delirium during his hospital stay. As infection kidney function and heart failure improved his delirium improved. And currently he is back to baseline status. Atrial fibrillation patient is in atrial fibrillation during his hospital stay. Bradycardic. 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 Kidney function due to of peripheral vascular disease due to it atrophy of the kidney history of cerebrovascular disease and cerebral hemorrhage. All these are chronic and stable but contributed to his morbidity. Continue with current statin dosing. These were not a significant issue during the hospital stay. Low back pain. Improving as his cellulitis improves. Continue to work with physical therapy pain was relieved with Code status. Patient is a DNR family maximizing comfort. And if situation becomes critical they would like him to be on hospice and have home care. Status at Discharge Cognitive/behavioral status at discharge: oriented Functional status at discharge: bed bound Overall status at discharge: patient is progressing back to baseline Time Spent with Patient Time spent: Greater than 30 minutes Exam Vital Signs (past 8 hours): - 11/20/19 00:15 11/20/19 04:30 Temperature 97.9 F 98.0 F Pulse Rate 64 61 Respiratory Rate 17 16 Blood Pressure 152/80 H 154/71 H Pulse Oximetry 93 94 Fraction of Inspired Oxygen 30 Oxygen Delivery Method Nasal Cannula Oxygen Flow Rate 2 Objective Labs Result Diagrams: 11/19/19 05:37 11/20/19 05:51 Labs: Laboratory Results - last 24 hr 11/19/19 11/20/19 11/20/19 16:05 05:51 05:51 PT 22.8 H INR 1.9 H Sodium 139 139 Potassium 3.8 3.3 L Chloride 102 101 Carbon Dioxide 26 26 BUN 66 H 57 H Creatinine 3.10 H 3.00 H Estimated GFR 19.5 L 20.3 L BUN/Creatinine Ratio 21.3 19.0 Glucose 167 H 114 H Calcium 8.7 8.6 Discharge Plan Discharge Plan Patient Disposition: SNF Transfer to: [facility] Discharge comment: pt needs PT/INR on Saterday. Patient needs daily potassium checks until potassium and kidney function stabilizes. Patient will need adjustment of his Lasix. Still fluid overloaded normal Lasix doses 20 mg daily. Discharge orders & Medications Prescriptions: New Combivent Respimat 20-100 mcg/actuation Mist 2 puff INH Q8H PRN (Reason: Shortness Of Breath Or Wheezing) Qty: 1 RF: 0 acetaminophen 325 mg Tablet 650 mg PO Q6HR PRN (Reason: Fever/Mild Pain (1-3)) Qty: 30 RF: 0 carvedilol [Coreg] 6.25 mg Tablet 3.125 mg PO BID Qty: 60 RF: 0 potassium chloride 20 mEq/15 mL Liquid 30 meq PO BIDWM 20 Days Qty: 450 RF: 0 sertraline 25 mg Tablet 25 mg PO BEDTIME Qty: 30 RF: 0 furosemide [Lasix] 40 mg tablet 40 mg PO BID Qty: 60 RF: 0 amoxicillin-pot clavulanate [Augmentin] 500-125 mg tablet 1 tab PO BID Qty: 14 RF: 0 Continued vitamin B complex [B Complex-Vitamin B12] tablet 1 tab PO DAILY RF: 0 warfarin 2.5 mg tablet 2.5 mg PO DAILY Qty: 90 RF: 3 tamsulosin [Flomax] 0.4 MG capsule,extended release 24hr 0.4 mg PO QDAY Qty: 0 RF: 0 rosuvastatin [Crestor] 40 mg tablet 40 mg PO BEDTIME Qty: 90 RF: 3 Discontinued carvedilol 12.5 mg tablet See Rx Instructions .ROUTE .COMPLEX Qty: 90 RF: 11 furosemide 40 mg tablet 20 mg PO Q DAY RF: 0 Follow up/Referrals: Dereck Vickers MD [Primary Care Provider] - Discharge Health Status Multidrug resistant organism: No MDRO Precautions: [place] Diet/Activity/Treatments Diet: Diet as Tolerated Skin/Wound/Dressing Care Skin care: cellulitis of buttock Dressing: skin care to carmel area Special Rehabilitation Services Rehab type: Physical therapy and Occupational therapy Visit Report/Discharge Packet Visit Report Forms: Stroke Signs & Symptoms Discharge Data Primary Care Provider: Dereck Vickers
[2019-11-20 08:00] VITALS: BP 151/93; PULSE 67; RESP 20; TEMP 36.6; O2SAT 93
[2019-11-20] MEDS: POTASSIUM CHLORIDE 40 MEQ in SODIUM CHLORIDE 0.9% 500 ML 130 ML IV (08:10)
[2019-11-20] MEDS: FUROSEMIDE 40 MG/4 ML VIAL IV (08:12)
--- NOTE | 2019-11-20 10:27 | PC.NURSE ---
Addendum entered by Beba Us R.N. 11/20/19 12:01: Report called into [facility] for Pt transfer. Updated on indwelling mishra and follow up with Dr Vickers. Dressing changed to gluteal pressure sores. Carmel care completed gently as Pt has increased pain but stool incont. Barrier cream applied. Original Note: Am shift Review of d/c noted Mishra remains in r/t retention and skin breakdown/cellulitis to carmel area. Call into Dr Vickers's office so they were aware. Pt is planning transfer to SNF at 1130am today. Message left with staff at [facility]. They will have Dr Posada review and get back to us. Continue d/c planning.
[2019-11-20] MEDS: TAMSULOSIN 0.4 MG CAPSULE PO (10:41)
--- NOTE | 2019-11-20 11:26 | CM.DPC ---
DCP Cont: Faxed discharge packet (signed med list, PASRR and discharge summary) to [facility] at fax # [phone]. Fax confirmation scanned in. Reji Leblanc Hospitality Director
--- NOTE | 2019-11-20 15:07 | CM.DPNOTE ---
DC Note: DC order updated today for pt to DC to [facility] as planned. Updated March at [facility] and cabulance was arranged for approx 1130, RN Beba sanchez. Ana, claims account specialist faxed DC packet to include updated/signed med list, completed PASRR to include Dr Vickers's signature for Hospital Exempt DC (d/t addition of Zoloft) ; and DC summary completed by Dr Vickers. Pt and family remained agreeable to plan. P: DC to [facility] today via cabulance. KRISTY Shore
== END 2019-11-20 12:06 | DRG 871 ==
LOC: ED 19:01 → AC 19:16
PROVIDERS: Admitting Provider Family Medicine; Emergency Provider Emergency Medicine; PCP Family Medicine; Visit Provider Family Medicine
DX: A41.51 Sepsis due to Escherichia coli [E. coli] (principal); I50.21 Acute systolic (congestive) heart failure; G93.41 Metabolic encephalopathy; J96.01 Acute respiratory failure with hypoxia; L03.317 Cellulitis of buttock; N17.9 Acute kidney failure, unspecified; N18.4 Chronic kidney disease, stage 4 (severe); A41.81 Sepsis due to Enterococcus; R65.20 Severe sepsis without septic shock; I48.0 Paroxysmal atrial fibrillation; B95.2 Enterococcus as the cause of diseases classified elsewhere; G89.29 Other chronic pain; B96.20 Unspecified Escherichia coli [E. coli] as the cause of diseases classified elsewhere; J44.9 Chronic obstructive pulmonary disease, unspecified; I67.9 Cerebrovascular disease, unspecified; E87.6 Hypokalemia; I25.10 Atherosclerotic heart disease of native coronary artery without angina pectoris; Z95.1 Presence of aortocoronary bypass graft; Z95.2 Presence of prosthetic heart valve; Z79.01 Long term (current) use of anticoagulants; Z66 Do not resuscitate
CPT/HCPCS: 36415; 51798; 71045; 74176; 80048; 80053; 81003; 81015; 83605; 83690; 83735; 83880; 84132; 85025; 85610; 85730; 87070; 87075; 87077; 87086; 87185; 87186; 87205; 87507; 93005; 93306; 94760; 94762; 96365; 96368; 97129; 97162; 97166; 97530; 97535; 99223; 99232; 99233; 99238; 99284; J0295; J1940; J3480

== ENCOUNTER → 2019-11-21 15:22 | Outpatient (ROUT) | payer SELFPAY ==
[2019-11-14 19:36] VITALS: BMI 34.8
[2019-11-21 15:59] LABS: BUN Creatinine Ratio 18.1 (6-22); Blood Urea Nitrogen 49 mg/dL (9-20); Calcium 8.5 mg/dL (8.4-10.2); Carbon Dioxide 27 mmol/L (22-32); Estimated Glomerular Filt Rate 22.9 mL/min (>60); Glucose 153 mg/dL (80-110); Potassium 3.5 mmol/L (3.4-5.1); Sodium 137 mmol/L (137-145)
[2019-11-21 16:00] LABS: INR 2.1 (0.9-1.3); Prothrombin Time 24.6 SECONDS (10.1-12.7)
[2019-11-21 16:15] LABS: Chloride 100 mmol/L (98-107); HEMOLYSIS < 15 (0-50)
== END ==
PROVIDERS: PCP Family Medicine; Visit Provider Internal Medicine
DX: I48.91 Unspecified atrial fibrillation (principal); L03.90 Cellulitis, unspecified; I50.9 Heart failure, unspecified
CPT/HCPCS: 80048; 85610

== ENCOUNTER → 2019-11-27 15:13 | Outpatient (CLI) | payer MEDICARE, OTHER, SELFPAY ==
[2019-11-14 19:36] VITALS: BMI 34.8
--- NOTE | 2019-11-27 | DI.RAD.S_ITS ---
PROCEDURE: XR CHEST 2V INDICATIONS: R/O Pneumonia TECHNIQUE: 2 views of the chest were acquired. COMPARISON: [facility], , CHEST 2 VIEW, 01/07/2018, 5:26. [facility], CR, XR CHEST 1V, 11/14/2019, 18:14. [facility], CR, XR CHEST 1V, 11/18/2019, 10:01. FINDINGS: Surgical changes and devices: Sternotomy wires and CABG clips Lungs and pleura: Scattered subsegmental atelectasis and/or scarring. No focal consolidation. No definite pulmonary edema. No pleural effusions or pneumothorax. Mediastinum: Mediastinal contours are normal. Heart size is enlarged. Bones and chest wall: No suspicious bony abnormalities. Soft tissues appear unremarkable. IMPRESSION: Scattered subsegmental atelectasis and/or scarring. No acute consolidation. Cardiomegaly. No definite pulmonary edema Dictated by: Kieran Wilde M.D. on 11/27/2019 at 16:54 Approved by: Kieran Wilde M.D. on 11/27/2019 at 16:55
== END ==
PROVIDERS: PCP Family Medicine; Referring Provider Internal Medicine; Visit Provider Internal Medicine
DX: R06.02 Shortness of breath (principal); R06.2 Wheezing; I51.7 Cardiomegaly; Z95.1 Presence of aortocoronary bypass graft
CPT/HCPCS: 71046